=== PATIENT | female | born 1980 | race Caucasian/White ===

== ENCOUNTER 2018-07-25 14:36 | Day surgery (SDC) | payer OTHER ==
[~2018-07-25] VITALS: Ht 162.6 cm; Wt 61.2 kg
[~2018-07-25 14:36] MED LIST: BUPR-42 PO; BUTA1CAP40 PO; CYCL10TA9 PO; TOPI200T8 PO
--- OUTSIDE RECORDS SUMMARY | 2018-07-25 14:42 | XMS REPORT ---
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 Active 939799790 Problem Irregular menses N92.6 Active 332585089 Problem Smoking F17.200 Active 73671507 Problem Migraines G43.909 Active 59114169 Problem Tobacco abuse counseling Z71.6 Active 851752208 Problem Recurrent major depressive disorder, in full remission F33.42 Active 43270701 ALLERGIES Substance Reaction Event Type Date Status Penicillin V Potassium Unknown Drug Allergy Apr, Active Maxalt anaphylaxis Drug Allergy Apr, Active Cipro stomach upset Drug Allergy Apr, Active ENCOUNTERS Encounter Location Date Diagnosis [place] [id number] [place] [address] 64922- 5194 Apr, Lower abdominal pain R10.30 ; Irregular menses N92.6 ; Vaginal odor N89.8 ; Hx of ovarian cyst Z87.42 and Sleep disorder, shift work G47.26 [facility] [address] [place] [address] 70194- 3189 Apr, Lower abdominal pain R10.30 ; Vaginal odor N89.8 ; Sleep disorder, shift work G47.26 ; Irregular menses N92.6 and Hx of ovarian cyst Z87.42 [facility] [address] [place] [address] 16270- 0830 Jan, [facility] [address] [address] 4163 Jan, Irregular menses N92.6 [place] [address] [place] [id number] [place] [address] 59076- 3159 Dec, [place] [address] [place] [id number] [place] [address] 10109- 0510 Dec, Anxiety disorder, unspecified F41.9 [place] [address] [place] [id number] [place] [address] 45981- 1234 Oct, Well woman exam with routine gynecological exam Z01.419 [place] [address] [place] [id number] [place] [address] 24888- 0160 Oct, [place] [address] [place] [id number] [place] [address] 14499- 7733 September, [place] [address] [place] [id number] [place] [address] 09668- 9207 September, Encounter for test, result unknown Z32.00 [place] [address] [place] [id number] [place] [address] 55291- 7536 September, [place] [address] [place] [id number] [place] [address] 84827- 0181 September, [address] [id number] [id number] September, Dental examination Z01.20 [place] [address] [place] [id number] [place] [address] 48204- 2519 September, Well woman exam with routine gynecological exam Z01.419 ; Irregular menses N92.6 and Migraines G43.909 [place] [address] [place] [address] 53931- 4619 Aug, Raynauds disease I73.00 ; Migraines G43.909 ; Recurrent major depressive disorder, in full remission F33.42 ; Anxiety disorder, unspecified F41.9 and Tobacco abuse counseling Z71.6 [place] [address] [place] [id number] [place] [address] 61269- 1763 Jul, [place] [address] 69623- 1630 Jul, Recurrent major depressive disorder, in full remission F33.42 and Migraines G43.909 [place] [address] 09298- 3761 Jul, Migraines G43.909 ; Raynauds disease I73.00 ; Mitral valve prolapse I34.1 ; High risk medication use Z79.899 ; Controlled substance agreement signed Z79.899 ; Recurrent major depressive disorder, in full remission F33.42 and Smoking F17.200 [place] [address] 13403- 1307 Jun, Chronic tension-type headache, intractable G44.221 [place] [address] 40261- 2501 Jan, Chronic tension-type headache, intractable G44.221 [place] [address] 52537- 0035 Jan, Chronic tension-type headache, intractable G44.221 [place] [address] 99059- 9677 Oct, Bronchitis J40 [place] [address] 40417- 2388 September, Encounter for IUD removal Z30.432 and control counseling Z30.09 [place] [address] 86132- 4863 September, [place] [address] 43281- 6710 Aug, Chronic tension-type headache, intractable G44.221 [place] [address] 00895- 4953 Aug, Chronic tension-type headache, intractable G44.221 ; Migraines G43.909 and Anxiety disorder, unspecified F41.9 [place] [address] 44810- 3337 Aug, Anxiety disorder, unspecified F41.9 and Migraines G43.909 [place] [address] 83023- 9322 Jul, Bronchitis J40 [place] [address] 82009- 7937 Jul, Migraines G43.909 ; Anxiety disorder, unspecified F41.9 and Chronic tension-type headache, intractable G44.221 [place] [address] 28926- 9407 13 Jun, 2016 Hx of migraines Z86.69 [place] [address] 33264- 6830 Apr, Diarrhea, unspecified type R19.7 and Other fatigue R53.83 [place] [address] 97877- 8625 Mar, [place] [address] 50392- 4903 Feb, Hx of migraines Z86.69 ; Mitral valve prolapse I34.1 and Anxiety disorder, unspecified F41.9 [place] [address] 03122- 3455 Jan, Vaginal discharge N89.8 ; Vaginal bleeding N93.9 and IUD ( intrauterine device) in place Z97.5 [place] [address] 95307- 9693 Dec, [place] [address] 76466- 3422 Nov, [place] [address] 28187- 7387 Nov, Yeast infection B37.9 [facility] [address] [place] [address] 19449- 5315 Nov, Yeast infection B37.9 [facility] [address] [place] [id number] [place] [address] 88342 -4934 Nov, Left wrist pain M25.532 [facility] [address] [place] [id number] [place] [address] 69407- 6528 Nov, [facility] [address] [place] [id number] [place] [address] 22334- 6124 Oct, Hx of migraines Z86.69 [place] [address] 31389- 3628 Oct, Migraines G43.909 [place] [address] [place] [id number] [place] [address] 23188- 0343 September, [place] [address] 46710- 8979 September, Migraines G43.909 [place] [address] [place] [id number] [place] [address] 32951- 3352 Aug, Hx of migraines Z86.69 ; Anxiety disorder, unspecified F41.9 ; Migraines G43.909 ; Back pain M54.9 ; Smoking F17.200 and Constipation K59.00 [facility] [address] [place] [id number] [place] [address] 81211- 6510 Jul, [facility] [address] [place] [id number] [place] [address] 70799- 9042 Jul, Anxiety disorder, unspecified F41.9 and Depression, unspecified depression type F32.9 [place] [address] [place] [id number] [place] [address] 87513- 3547 Apr, [facility] [address] [place] [id number] [place] [address] 16667- 9404 Apr, Leg pain M79.606 ; Hx of migraines Z86.69 ; Anxiety disorder , unspecified F41.9 and Migraines G43.909 [place] [address] [place] [id number] [place] [address] 97588- 9557 Mar, Migraines G43.909 [place] [address] [place] [id number] [place] [address] 94071- 0995 Mar, [place] [address] 75099- 2796 Mar, General medical exam Z00.00 [place] [address] [place] [id number] [place] [address] 20414- 1232 Mar, [place] [address] 79719- 5733 Mar, General medical exam Z00.00 ; Hx of migraines Z86.69 ; Raynauds disease I73.00 ; Mitral valve prolapse I34.1 ; Anxiety disorder, unspecified F41.9 ; Dietary counseling Z71.3 and Exercise counseling Z71.89 [place] [address] [place] [id number] [place] [address] 99822- 6108 May, [place] [address] 76703- 0467 May, [place] [address] [place] [id number] [place] [address] 30026- 9676 May, [place] [address] [place] [id number] [place] [address] 99142- 4194 May, IMMUNIZATIONS No Known Immunizations SOCIAL HISTORY Never Assessed REASON FOR VISIT Fertility Questions/ pt c/o low RT side pain for 2 days. she states it stopped yesterday though. Pt also c/o headache, irregular periods. She also c/o odor from vagina x2 days- HARISH Cavazos PLAN OF CARE Activity Details Follow Up prn Reason: Pending Test TSH w/ FREE T4 Pending Test ESTRADIOL Pending Test FSH, SERUM Pending Test LH VITAL SIGNS Height 63 in 2018-04-20 Weight 128.1 lbs 2018-04-20 Temperature 96.9 degrees Fahrenheit 2018-04-20 Heart Rate 85 bpm 2018-04-20 Respiratory Rate 18 2018-04-20 BMI 22.69 kg/m2 2018-04-20 Blood pressure systolic 100 mmHg 2018-04-20 Blood pressure diastolic 60 mmHg 2018-04-20 MEDICATIONS Medication Instructions Dosage Frequency Start Date End Date Duration Status Metronidazole 500 mg Orally 2 times a day 1 tablet 12h Apr, 10 day(s) Active Vol-Care Rx 1 Orally Once a day 1 tablet 24h September, Active RESULTS Name Result Date Reference Range UA LONG DIP (IN HOUSE) 2018-04-20 Lot # [id number] Exp date 02/12/2019 Clarity slightly cloudy Color yellow Odor no GLU neg TRESSA neg KET neg SG 1.015 BLO neg pH 8.5 Protein neg URO 0.2 NIT neg WISAM neg Lot # Exp date BACTERIAL VAGINOSIS (IN HOUSE) 2018-04-20 RESULTS POSITIVE Control + Lot # [id number] Exp date 11/2018 PROCEDURES Procedure Date Ordered Result Body Site Bacterial Vaginosis In House Apr 20, 2018 URINALYSIS, AUTO, W/O SCOPE Apr 20, 2018 ASSAY OF FREE THYROXINE Apr 20, 2018 GONADOTROPIN (FSH) Apr 20, 2018 ASSAY OF ESTRADIOL Apr 20, 2018 ASSAY THYROID STIM HORMONE Apr 20, 2018 GONADOTROPIN (LH) Apr 20, 2018 INSTRUCTIONS MEDICATIONS ADMINISTERED No Known Medications MEDICAL (GENERAL) HISTORY Type Description Date Medical History migraine headaches Medical History sleep apnea Medical History arachnoid cyst Medical History mitral valve prolapse Medical History raynauds syndrome diagnosed 2009 Medical History anxiety and depression Surgical History section x 2 Surgical History angiogram Hospitalization History Softball hit to the throat
--- OUTSIDE RECORDS SUMMARY | 2018-07-25 14:43 | XMS REPORT ---
Author Author AYAN RIVER [facility] Address [address] [place] [address] Care Team Providers Care Architectural Project Captain Name Role Phone AYAN RIVER Unavailable PROBLEMS Type Condition ICD9-CM Code HBT17-UP Code Onset Dates Condition Status SNOMED Code Problem Mitral valve prolapse I34.1 Active 789574890 Problem Anxiety disorder, unspecified F41.9 Active 931812978 Problem Irregular menses N92.6 Active 704532252 Problem Tobacco abuse counseling Z71.6 Active 656756903 Problem Migraines G43.909 Active 32642296 Problem Raynauds disease I73.00 Active 244499297 Problem Recurrent major depressive disorder, in full remission F33.42 Active 15213793 Problem Smoking F17.200 Active 69976027 ALLERGIES No Information ENCOUNTERS Encounter Location Date Diagnosis [place] [id number] 89711- 7329 Jan, [place] [address] 87876- 8495 Jan, Irregular menses N92.6 [place] [address] [place] [id number] [place] [address] 04820- 8681 Dec, [facility] [address] 66211- 7068 Dec, Anxiety disorder, unspecified F41.9 [facility] [address] 95961- 7514 Oct, Well woman exam with routine gynecological exam Z01.419 [place] [address] [place] [id number] [place] [address] 19926- 0496 Oct, [place] [address] 90224- 1570 September, [place] [address] [place] [address] 75466- 3358 September, Encounter for test, result unknown Z32.00 [place] [address] [place] [id number] [place] [address] 87684- 8698 September, [place] [address] [place] [id number] [place] [address] 05198- 2444 September, [address] [id number] [id number] September, Dental examination Z01.20 [place] [address] [place] [id number] [place] [address] 54445- 4432 10 Sep, 2017 Well woman exam with routine gynecological exam Z01.419 ; Irregular menses N92.6 and Migraines G43.909 [place] [address] [place] [id number] [place] [address] 03897- 7710 17 Aug, 2017 Raynauds disease I73.00 ; Migraines G43.909 ; Recurrent major depressive disorder, in full remission F33.42 ; Anxiety disorder, unspecified F41.9 and Tobacco abuse counseling Z71.6 [place] [address] [place] [id number] [place] [address] 54020- 7360 Jul, [place] [address] [place] [id number] [place] [address] 04686- 1926 Jul, Recurrent major depressive disorder, in full remission F33.42 and Migraines G43.909 [place] [address] [place] [id number] [place] [address] 91215- 5913 Jul, Migraines G43.909 ; Raynauds disease I73.00 ; Mitral valve prolapse I34.1 ; High risk medication use Z79.899 ; Controlled substance agreement signed Z79.899 ; Recurrent major depressive disorder, in full remission F33.42 and Smoking F17.200 [place] [address] [place] [id number] [place] [address] 60197- 3652 Jun, Chronic tension-type headache, intractable G44.221 [place] [address] [place] [id number] [place] [address] 90553- 5427 Jan, Chronic tension-type headache, intractable G44.221 [place] [address] [place] [id number] [place] [address] 01014- 5118 Jan, Chronic tension-type headache, intractable G44.221 [place] [address] 33086- 4800 Oct, Bronchitis J40 [place] [address] 70401- 8082 September, Encounter for IUD removal Z30.432 and control counseling Z30.09 [place] [address] 08081- 2318 September, [place] [address] 83995- 6645 Aug, Chronic tension-type headache, intractable G44.221 [place] [address] [place] [id number] [place] [address] 48616- 6677 Aug, Chronic tension-type headache, intractable G44.221 ; Migraines G43.909 and Anxiety disorder, unspecified F41.9 [place] [address] [place] [id number] [place] [address] 14782- 8062 Aug, Anxiety disorder, unspecified F41.9 and Migraines G43.909 [place] [address] [place] [id number] [place] [address] 50620- 6667 Jul, Bronchitis J40 [place] [address] 57059- 4958 Jul, Migraines G43.909 ; Anxiety disorder, unspecified F41.9 and Chronic tension-type headache, intractable G44.221 [place] [address] 57567- 2196 Jun, Hx of migraines Z86.69 [facility] [address] [place] [id number] [place] [address] 98786- 0367 15 Apr, 2016 Diarrhea, unspecified type R19.7 and Other fatigue R53.83 [facility] [address] [place] [id number] [place] [address] 08834- 7592 09 Mar, 2016 [place] [address] 12133- 8119 07 Feb, 2016 Hx of migraines Z86.69 ; Mitral valve prolapse I34.1 and Anxiety disorder, unspecified F41.9 [place] [address] 11298- 8976 08 Jan, 2016 Vaginal discharge N89.8 ; Vaginal bleeding N93.9 and IUD ( intrauterine device) in place Z97.5 [place] [address] 16115- 5756 Dec, [facility] [address] 21525- 7628 Nov, [facility] [address] 54120- 8651 Nov, Yeast infection B37.9 [facility] [address] [place] [id number] [place] [address] 18852- 9190 Nov, Yeast infection B37.9 [facility] [address] [place] [id number] [place] [address] 93838 -3226 Nov, Left wrist pain M25.532 [facility] [address] 65269- 1894 Nov, [facility] [address] 77178- 1663 Oct, Hx of migraines Z86.69 [facility] [address] [place] [id number] [place] [address] 67469- 3369 Oct, Migraines G43.909 [place] [address] [place] [id number] [place] [address] 78759- 6965 September, [place] [address] 49810- 4169 September, Migraines G43.909 [place] [address] 62300- 6046 Aug, Hx of migraines Z86.69 ; Anxiety disorder, unspecified F41.9 ; Migraines G43.909 ; Back pain M54.9 ; Smoking F17.200 and Constipation K59.00 [place] [address] 53845- 6400 Jul, [place] [address] 32535- 8695 Jul, Anxiety disorder, unspecified F41.9 and Depression, unspecified depression type F32.9 [place] [address] 38237- 7129 Apr, [place] [address] 26120- 8798 Apr, Leg pain M79.606 ; Hx of migraines Z86.69 ; Anxiety disorder , unspecified F41.9 and Migraines G43.909 [place] [address] [place] [id number] [place] [address] 22336- 4874 Mar, Migraines G43.909 [place] [address] [place] [id number] [place] [address] 44016- 2807 Mar, [place] [address] 98637- 7834 Mar, General medical exam Z00.00 [place] [address] 23748- 5014 Mar, [place] [address] 86325- 5065 Mar, General medical exam Z00.00 ; Hx of migraines Z86.69 ; Raynauds disease I73.00 ; Mitral valve prolapse I34.1 ; Anxiety disorder, unspecified F41.9 ; Dietary counseling Z71.3 and Exercise counseling Z71.89 [facility] [address] [address]- 6215 May, [facility] [address] [address]- 1226 May, [facility] [address] [address]- 7728 May, [facility] [address], [place] [address]- 3739 May, IMMUNIZATIONS No Known Immunizations SOCIAL HISTORY Never Assessed REASON FOR VISIT Lab results PLAN OF CARE VITAL SIGNS MEDICATIONS Unknown Medications RESULTS No Results PROCEDURES No Known procedures INSTRUCTIONS MEDICATIONS ADMINISTERED No Known Medications MEDICAL (GENERAL) HISTORY Type Description Date Medical History migraine headaches Medical History sleep apnea Medical History arachnoid cyst Medical History mitral valve prolapse Medical History raynauds syndrome diagnosed 2009 Medical History anxiety and depression Surgical History section x 2 Surgical History angiogram Hospitalization History Softball hit to the throat
--- OUTSIDE RECORDS SUMMARY | 2018-07-25 14:43 | XMS REPORT ---
Author Author JENNIFERKENNEDYLD Organization [facility] Address [address] [place] [address] Care Team Providers Care Network Planner Name Role Phone RODRIGUEZLD Song Unavailable PROBLEMS Type Condition ICD9-CM Code BXZ15-ZV Code Onset Dates Condition Status SNOMED Code Problem Mitral valve prolapse I34.1 Active 741736257 Problem Anxiety disorder, unspecified F41.9 Active 486142434 Problem Irregular menses N92.6 Active 900111711 Problem Tobacco abuse counseling Z71.6 Active 411559814 Problem Migraines G43.909 Active 02064282 Problem Raynauds disease I73.00 Active 858976806 Problem Recurrent major depressive disorder, in full remission F33.42 Active 43564974 Problem Smoking F17.200 Active 15423844 ALLERGIES No Information ENCOUNTERS Encounter Location Date Diagnosis [facility] [address] [address] Dec, Anxiety disorder, unspecified F41.9 [facility] [id number] [place] [address] 37907- 8245 Oct, Well woman exam with routine gynecological exam Z01.419 [facility] [id number] [place] [address] 69984- 1868 Oct, [facility] [id number] [place] [address] 07410- 7605 September, [facility] [address] [address]- [address] September, Encounter for test, result unknown Z32.00 [facility] [id number] [place] [address] 57541- 7442 September, [facility] [address] 8[address]- [address] September, [facility] [address] [place] [address] AVE [id number] [id number] September, Dental examination Z01.20 [place] [id number] [place] [address] 53059- 8334 10 Sep, 2017 Well woman exam with routine gynecological exam Z01.419 ; Irregular menses N92.6 and Migraines G43.909 [place] [id number] [place] [address] 83956- 4834 Aug, Raynauds disease I73.00 ; Migraines G43.909 ; Recurrent major depressive disorder, in full remission F33.42 ; Anxiety disorder, unspecified F41.9 and Tobacco abuse counseling Z71.6 [place] [id number] [place] [address] 66777- 1657 Jul, [place] [id number] [place] [address] 48432- 4147 Jul, Recurrent major depressive disorder, in full remission F33.42 and Migraines G43.909 [place] [id number] [place] [address] 88104- 4239 Jul, Migraines G43.909 ; Raynauds disease I73.00 ; Mitral valve prolapse I34.1 ; High risk medication use Z79.899 ; Controlled substance agreement signed Z79.899 ; Recurrent major depressive disorder, in full remission F33.42 and Smoking F17.200 [place] [address] [place] [address] 58887- 1942 Jun, Chronic tension-type headache, intractable G44.221 [place] [id number] [place] [address] 43615- 1050 Jan, Chronic tension-type headache, intractable G44.221 [place] [id number] [place] [address] 84561- 5748 Jan, Chronic tension-type headache, intractable G44.221 [place] [address] 43035- 8549 Oct, Bronchitis J40 [place] [address] 96929- 4298 15 Sep, 2016 Encounter for IUD removal Z30.432 and control counseling Z30.09 [place] [address] 04695- 8704 September, [place] [address] 83260- 5786 Aug, Chronic tension-type headache, intractable G44.221 [place] [address] 07862- 4218 Aug, Chronic tension-type headache, intractable G44.221 ; Migraines G43.909 and Anxiety disorder, unspecified F41.9 [place] [address] 71290- 2605 Aug, Anxiety disorder, unspecified F41.9 and Migraines G43.909 [place] [address] 56148- 6413 Jul, Bronchitis J40 [place] [address] 52386- 7780 Jul, Migraines G43.909 ; Anxiety disorder, unspecified F41.9 and Chronic tension-type headache, intractable G44.221 [place] [address] 26071- 4625 13 Jun, 2016 Hx of migraines Z86.69 [place] [address] 04565- 1918 Apr, Diarrhea, unspecified type R19.7 and Other fatigue R53.83 [place] [address] 10281- 5852 Mar, [place] [address] [place] [address] 7166 07 Feb, 2016 Hx of migraines Z86.69 ; Mitral valve prolapse I34.1 and Anxiety disorder, unspecified F41.9 [facility] [id number] [place] [address] 45104- 5105 08 Jan, 2016 Vaginal discharge N89.8 ; Vaginal bleeding N93.9 and IUD ( intrauterine device) in place Z97.5 [place] [address] 32276- 5645 Dec, [facility] [address] 94134- 9209 Nov, [facility] [address] 04098- 9452 Nov, Yeast infection B37.9 [place] [address] 58644- 9155 Nov, Yeast infection B37.9 [facility] [id number] [place] [address] 55799 -2081 Nov, Left wrist pain M25.532 [place] [address] 20207- 9987 Nov, [facility] [address] 04950- 1876 Oct, Hx of migraines Z86.69 [place] [address] 67304- 5192 Oct, Migraines G43.909 [place] [address] 32541- 9349 September, [place] [address] 82472- 4626 September, Migraines G43.909 [facility] [id number] [place] [address] 69835- 1387 Aug, Hx of migraines Z86.69 ; Anxiety disorder, unspecified F41.9 ; Migraines G43.909 ; Back pain M54.9 ; Smoking F17.200 and Constipation K59.00 [place] [address] 43235- 0901 Jul, [place] [address] 07288- 3382 Jul, Anxiety disorder, unspecified F41.9 and Depression, unspecified depression type F32.9 [place] [address] 47360- 5108 Apr, [place] [address] 50080- 4057 Apr, Leg pain M79.606 ; Hx of migraines Z86.69 ; Anxiety disorder , unspecified F41.9 and Migraines G43.909 [place] [address] 94607- 4200 Mar, Migraines G43.909 [place] [address] 40849- 3214 Mar, [place] [address] 47676- 6002 Mar, General medical exam Z00.00 [place] [address] 96999- 4298 Mar, [place] [address] 61737- 3629 Mar, General medical exam Z00.00 ; Hx of migraines Z86.69 ; Raynauds disease I73.00 ; Mitral valve prolapse I34.1 ; Anxiety disorder, unspecified F41.9 ; Dietary counseling Z71.3 and Exercise counseling Z71.89 [place] [address] 04349- 7083 May, [place] [address] [place] [address]- 6439 May, [facility] [address] [facility] [id number] [place] [address] 457[address] May, [facility] [address] [facility] [id number] [place] [address]- [address]75 May, IMMUNIZATIONS No Known Immunizations SOCIAL HISTORY Never Assessed REASON FOR VISIT Lab results PLAN OF CARE VITAL SIGNS MEDICATIONS No Known Medications RESULTS No Results PROCEDURES No Known [...]
--- OUTSIDE RECORDS SUMMARY | 2018-07-25 14:43 | XMS REPORT ---
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 Active 373932504 Problem Irregular menses N92.6 Active 625010420 Problem Smoking F17.200 Active 26239632 Problem Migraines G43.909 Active 62085669 Problem Tobacco abuse counseling Z71.6 Active 996999032 Problem Recurrent major depressive disorder, in full remission F33.42 Active 58046627 ALLERGIES No Information ENCOUNTERS Encounter Location Date Diagnosis [place] [address] [address]- [address] Apr, Lower abdominal pain R10.30 ; Irregular menses N92.6 ; Vaginal odor N89.8 ; Hx of ovarian cyst Z87.42 and Sleep disorder, shift 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 [place] [id number] [place] [address] 19028- 7615 Apr, Lower abdominal pain R10.30 ; Vaginal odor N89.8 ; Sleep disorder, shift work G47.26 ; Irregular menses N92.6 and Hx of ovarian cyst Z87.42 [place] [address] 68602- 7135 Jan, [place] [address] [id number] [place] [address] 09534- 3746 Jan, Irregular menses N92.6 [place] [address] [address]- 7794 Dec, [place] [id number] [place] [address] 08880- 9283 Dec, Anxiety disorder, unspecified F41.9 [place] [address], [place] [address]- 2855 Oct, Well woman exam with routine gynecological exam Z01.419 [place] [address] [place] [address] 62928- 4335 Oct, [place] [id number] [place] [address] 83471- 7234 September, [place] [address] [address] [id number] [place] [address] 07955- 0921 September, Encounter for test, result unknown Z32.00 [place] [id number] [place] [address] 91216- 0724 September, [place] [address] [place] [address] 69892- 0113 September, [address] [id number] [id number] September, Dental examination Z01.20 [place] [address] [place] [address] 22134- 3614 September, Well woman exam with routine gynecological exam Z01.419 ; Irregular menses N92.6 and Migraines G43.909 [place] [address] [place] [address] 75095- 6576 Aug, Raynauds disease I73.00 ; Migraines G43.909 ; Recurrent major depressive disorder, in full remission F33.42 ; Anxiety disorder, unspecified F41.9 and Tobacco abuse counseling Z71.6 [place] [address] [address]- 7040 Jul, [place] [address] [place] [address] [id number] [place] [address] 07186- 4844 Jul, Recurrent major depressive disorder, in full remission F33.42 and Migraines G43.909 [place] [address] 28018- 0157 Jul, Migraines G43.909 ; Raynauds disease I73.00 ; Mitral valve prolapse I34.1 ; High risk medication use Z79.899 ; Controlled substance agreement signed Z79.899 ; Recurrent major depressive disorder, in full remission F33.42 and Smoking F17.200 [place] [address] 75567- 0078 Jun, Chronic tension-type headache, intractable G44.221 [place] [address] 46976- 3739 Jan, Chronic tension-type headache, intractable G44.221 [place] [address] 66938- 9662 Jan, Chronic tension-type headache, intractable G44.221 [place] [address] 16729- 8821 Oct, Bronchitis J40 [place] [address] 98480- 5600 15 Sep, 2016 Encounter for IUD removal Z30.432 and control counseling Z30.09 [place] [address] 04008- 9583 September, [address] 34306- 6296 Aug, Chronic tension-type headache, intractable G44.221 [place] [address] 25153- 6463 Aug, Chronic tension-type headache, intractable G44.221 ; Migraines G43.909 and Anxiety disorder, unspecified F41.9 [place] [address] [place] [address]- 7444 Aug, Anxiety disorder, unspecified F41.9 and Migraines G43.909 [place] [address] 21135- 6903 Jul, Bronchitis J40 [place] [address] 57752- 0485 Jul, Migraines G43.909 ; Anxiety disorder, unspecified F41.9 and Chronic tension-type headache, intractable G44.221 [place] [address] 77150- 9156 13 Jun, 2016 Hx of migraines Z86.69 [place] [address] 95956- 1810 15 Apr, 2016 Diarrhea, unspecified type R19.7 and Other fatigue R53.83 [place] [address] 79709- 7190 Mar, [place] [address] 23795- 9681 07 Feb, 2016 Hx of migraines Z86.69 ; Mitral valve prolapse I34.1 and Anxiety disorder, unspecified F41.9 [place] [address] 94929- 4677 08 Jan, 2016 Vaginal discharge N89.8 ; Vaginal bleeding N93.9 and IUD ( intrauterine device) in place Z97.5 [place] [id number] [place] [address] 84866- 8342 Dec, [place] [address] 73771- 3168 Nov, [place] [address] 07488- 4644 Nov, Yeast infection B37.9 [place] [address] 48906- 6605 Nov, Yeast infection B37.9 [facility] [address] [place] [address] 46094 -6469 Nov, Left wrist pain M25.532 [facility] [id number] [place] [address] 08307- 8934 Nov, [facility] [id number] [place] [address] 41067- 3922 Oct, Hx of migraines Z86.69 [place] [id number] [place] [address] 59880- 7199 Oct, Migraines G43.909 [place] [id number] [place] [address] 59200- 2481 September, [place] [id number] [place] [address] 92515- 7111 September, Migraines G43.909 [place] [address] [id number] [place] [address] 30450- 8938 Aug, Hx of migraines Z86.69 ; Anxiety disorder, unspecified F41.9 ; Migraines G43.909 ; Back pain M54.9 ; Smoking F17.200 and Constipation K59.00 [place] [address] [place] [address] 89797- 6876 Jul, [place] [address] [id number] [place] [address] 81602- 7764 Jul, Anxiety disorder, unspecified F41.9 and Depression, unspecified depression type F32.9 [place] [id number] [place] [address] 09504- 7665 Apr, [place] [address] 89629- 1348 Apr, Leg pain M79.606 ; Hx of migraines Z86.69 ; Anxiety disorder , unspecified F41.9 and Migraines G43.909 [place] [id number] [address]- 7206 Mar, Migraines G43.909 [place] [id number] [place] [address] 64665- 7241 Mar, [place] [id number] [place] [address] 86667- 7754 Mar, General medical exam Z00.00 [place] [address] [id number] [place] [address] 05547- 6513 Mar, [place] [id number] [place] [address] 71982- 8496 Mar, General medical exam Z00.00 ; Hx of migraines Z86.69 ; Raynauds disease I73.00 ; Mitral valve prolapse I34.1 ; Anxiety disorder, unspecified F41.9 ; Dietary counseling Z71.3 and Exercise counseling Z71.89 [place] [id number] [place] [address] 51448- 5161 May, [place] [id number] [place] [address] 97179- 5345 May, [place] [id number] [place] [address] 09626- 1278 May, [place] [address] [id number] [place] [address] 16919- 8840 May, IMMUNIZATIONS No Known Immunizations SOCIAL HISTORY Never Assessed REASON FOR VISIT U/S pelvic complete ULTRASOUND WALK-IN. [facility] RVT PLAN OF CARE Activity Details Pending Test Ultrasound : PELVIC COMPLETE (IN-HOUSE) VITAL SIGNS MEDICATIONS Unknown Medications RESULTS No Results PROCEDURES Procedure Date Ordered Result Body Site US EXAM, PELVIC, COMPLETE Apr 24, 2018 INSTRUCTIONS MEDICATIONS ADMINISTERED No Known Medications MEDICAL (GENERAL) HISTORY Type Description Date Medical History migraine headaches Medical History sleep apnea Medical History arachnoid cyst Medical History mitral valve prolapse Medical History raynauds syndrome diagnosed 2009 Medical History anxiety and depression Surgical History section x 2 Surgical History angiogram Hospitalization History Softball hit to the throat
--- OUTSIDE RECORDS SUMMARY | 2018-07-25 14:43 | XMS REPORT ---
Author Author AYAN RIVER [facility] Address [address] [place] [address] Care Team Providers Care Transit Department Clerk Name Role Phone AYAN RIVER Unavailable PROBLEMS Type Condition ICD9-CM Code SZF28-BO Code Onset Dates Condition Status SNOMED Code Problem Mitral valve prolapse I34.1 Active 979325305 Problem Anxiety disorder, unspecified F41.9 Active 441629976 Problem Irregular menses N92.6 Active 555204988 Problem Tobacco abuse counseling Z71.6 Active 149620070 Problem Migraines G43.909 Active 07246619 Problem Raynauds disease I73.00 Active 471702376 Problem Recurrent major depressive disorder, in full remission F33.42 Active 32249908 Problem Smoking F17.200 Active 66124857 ALLERGIES Substance Reaction Event Type Date Status Penicillin V Potassium Unknown Drug Allergy Jan, Active Maxalt anaphylaxis Drug Allergy Jan, Active Cipro stomach upset Drug Allergy Jan, Active ENCOUNTERS Encounter Location Date Diagnosis [place] [id number] [place] [address] 13602- 0045 Jan, [facility] [id number] [place] [address] 05506- 9283 Jan, Irregular menses N92.6 [facility] [id number] [place] [address] 08852- 5300 Dec, [facility] [id number] [place] [address] 87943- 6378 Dec, Anxiety disorder, unspecified F41.9 [facility] [address] [place] [address] 49503- 3838 Oct, Well woman exam with routine gynecological exam Z01.419 [place] [address] [id number] [address] Oct, [place] [address] [place] [address] 77763- 1275 September, [place] [address] [place] [address] 61016- 2906 September, Encounter for test, result unknown Z32.00 [place] [address] [place] [id number] [place] [address] 41154- 1814 September, [place] [address] [place] [address] 02781- 4689 September, [address] [id number] [id number] September, Dental examination Z01.20 [place] [address] [place] [address] 51988- 8040 September, Well woman exam with routine gynecological exam Z01.419 ; Irregular menses N92.6 and Migraines G43.909 [place] [address] [place] [address] 39131- 8798 Aug, Raynauds disease I73.00 ; Migraines G43.909 ; Recurrent major depressive disorder, in full remission F33.42 ; Anxiety disorder, unspecified F41.9 and Tobacco abuse counseling Z71.6 [place] [address] [place] [address] 95104- 4058 Jul, [place] [address] [place] [address] 88392- 2460 Jul, Recurrent major depressive disorder, in full remission F33.42 and Migraines G43.909 [place] [address] [place] [address] 51041- 6665 Jul, Migraines G43.909 ; Raynauds disease I73.00 ; Mitral valve prolapse I34.1 ; High risk medication use Z79.899 ; Controlled substance agreement signed Z79.899 ; Recurrent major depressive disorder, in full remission F33.42 and Smoking F17.200 [place] [address] [place] [id number] [place] [address] 13839- 4176 Jun, Chronic tension-type headache, intractable G44.221 [place] [address] [place] [id number] [place] [address] 38807- 1926 Jan, Chronic tension-type headache, intractable G44.221 [place] [address] 95224- 1572 Jan, Chronic tension-type headache, intractable G44.221 [place] [address] 280579- 8171 Oct, Bronchitis J40 [place] [address] 06300- 259 September, Encounter for IUD removal Z30.432 and control counseling Z30.09 [place] [address] 44319- 4123 September, [place] [address] [place] [id number] [place] [address] 65428- 4449 Aug, Chronic tension-type headache, intractable G44.221 [place] [address] [place] [id number] [place] [address] 18424- 0294 Aug, Chronic tension-type headache, intractable G44.221 ; Migraines G43.909 and Anxiety disorder, unspecified F41.9 [place] [address] [place] [id number] [place] [address] 49945- 4333 Aug, Anxiety disorder, unspecified F41.9 and Migraines G43.909 [place] [address] 86694- 0354 Jul, Bronchitis J40 [place] [address] [id number] [place] [address] 14602- 0355 Jul, Migraines G43.909 ; Anxiety disorder, unspecified F41.9 and Chronic tension-type headache, intractable G44.221 [facility] [address] [id number] [place] [address] 86131- 0747 13 Jun, 2016 Hx of migraines Z86.69 [facility] [address] 35935- 8995 15 Apr, 2016 Diarrhea, unspecified type R19.7 and Other fatigue R53.83 [place] [address] 20166- 9238 09 Mar, 2016 [place] [address] 15402- 3964 07 Feb, 2016 Hx of migraines Z86.69 ; Mitral valve prolapse I34.1 and Anxiety disorder, unspecified F41.9 [place] [address] 65483- 4805 08 Jan, 2016 Vaginal discharge N89.8 ; Vaginal bleeding N93.9 and IUD ( intrauterine device) in place Z97.5 [place] [address] 02022- 6971 Dec, [place] [address] 07135- 0104 Nov, [facility] [address] 84559- 6689 Nov, Yeast infection B37.9 [facility] [address] 85279- 7591 Nov, Yeast infection B37.9 [facility] [id number] [place] [address] 95419 -8112 Nov, Left wrist pain M25.532 [facility] [address] 71380- 1309 Nov, [facility] [address] [address] [id number] [place] [address] 80302- 1821 Oct, Hx of migraines Z86.69 [place] [address] [place] [id number] [place] [address] 73296- 9976 Oct, Migraines G43.909 [place] [address] 62394- 0869 September, [place] [address] 28155- 9937 September, Migraines G43.909 [place] [address] 87722- 3490 Aug, Hx of migraines Z86.69 ; Anxiety disorder, unspecified F41.9 ; Migraines G43.909 ; Back pain M54.9 ; Smoking F17.200 and Constipation K59.00 [place] [address] 74842- 1185 Jul, [place] [address] 26388- 6632 Jul, Anxiety disorder, unspecified F41.9 and Depression, unspecified depression type F32.9 [place] [address] 45159- 4535 Apr, [place] [address] [place] [id number] [place] [address] 68683- 0403 Apr, Leg pain M79.606 ; Hx of migraines Z86.69 ; Anxiety disorder , unspecified F41.9 and Migraines G43.909 [place] [address] [place] [id number] [place] [address] 90861- 5944 Mar, Migraines G43.909 [place] [address] 36281- 3496 Mar, [place] [address] [place] [id number] [place] [address] 99906- 0886 Mar, General medical exam Z00.00 [place] [address] 79969- 5174 Mar, [facility] [address] [place] [id number] [address]- 2546 Mar, General medical exam Z00.00 ; Hx of migraines Z86.69 ; Raynauds disease I73.00 ; Mitral valve prolapse I34.1 ; Anxiety disorder, unspecified F41.9 ; Dietary counseling Z71.3 and Exercise counseling Z71.89 [facility] [address] [address]- 5216 May, [place] [address] [address]- 9376 May, [facility] [address] [place] [address] 14313- 4996 May, [place] [address] [place] [address] 89284- 4616 May, IMMUNIZATIONS No Known Immunizations SOCIAL HISTORY Never Assessed REASON FOR VISIT menstrual concerns- pt states that her periods have been irregular. She states that the last one she had lasted 2 days and then stopped and then she spotted a couple other days. She also c/o breast tenderness. HARISH Cavazos PLAN OF CARE Activity Details Follow Up prn Reason: Pending Test TEST, URINE (IN HOUSE) VITAL SIGNS Height 63 in 2018-01-24 Weight 125.5 lbs 2018-01-24 Temperature 98.5 degrees Fahrenheit 2018-01-24 Heart Rate 93 bpm 2018-01-24 Respiratory Rate 18 2018-01-24 BMI 22.23 kg/m2 2018-01-24 Blood pressure systolic 114 mmHg 2018-01-24 Blood pressure diastolic 66 mmHg 2018-01-24 MEDICATIONS Medication Instructions Dosage Frequency Start Date End Date Duration Status Vol-Care Rx 1 Orally Once a day 1 tablet 24h September, Active RESULTS No Results PROCEDURES Procedure Date Ordered Result Body Site COMPREHEN METABOLIC PANEL Jan 24, 2018 ASSAY THYROID STIM HORMONE Jan 24, 2018 URINE TEST Jan 24, 2018 COMPLETE CBC W/AUTO DIFF WBC Jan 24, 2018 VENIPUNCT, ROUTINE* Jan 24, 2018 INSTRUCTIONS MEDICATIONS ADMINISTERED No Known [...]
--- OUTSIDE RECORDS SUMMARY | 2018-07-25 14:43 | XMS REPORT ---
Author Author AYAN RIVER [facility] Address [address] [place] [address] Care Team Providers Care Call Center Specialist Name Role Phone AYAN RIVER Unavailable PROBLEMS Type Condition ICD9-CM Code APU66-FV Code Onset Dates Condition Status SNOMED Code Problem Mitral valve prolapse I34.1 Active 609067215 Problem Anxiety disorder, unspecified F41.9 Active 605997532 Problem Irregular menses N92.6 Active 093690571 Problem Tobacco abuse counseling Z71.6 Active 172236433 Problem Migraines G43.909 Active 54411654 Problem Raynauds disease I73.00 Active 975391775 Problem Recurrent major depressive disorder, in full remission F33.42 Active 29876811 Problem Smoking F17.200 Active 19653561 ALLERGIES No Information ENCOUNTERS Encounter Location Date Diagnosis [place] [address] 18314- 5605 Jan, [place] [address] 62277- 9554 Jan, Irregular menses N92.6 [place] [address] [place] [id number] [place] [address] 68257- 4840 Dec, [facility] [address] 12562- 9616 Dec, Anxiety disorder, unspecified F41.9 [facility] [address] 18996- 1117 Oct, Well woman exam with routine gynecological exam Z01.419 [place] [address] [place] [id number] [place] [address] 20347- 0443 Oct, [place] [address] 80655- 0343 September, [place] [address] [place] [address] 94115- 7690 September, Encounter for test, result unknown Z32.00 [place] [address] [place] [id number] [place] [address] 98953- 4594 September, [place] [address] [place] [id number] [place] [address] 42895- 7771 September, [address] [id number] [id number] September, Dental examination Z01.20 [place] [address] [place] [id number] [place] [address] 18832- 8707 10 Sep, 2017 Well woman exam with routine gynecological exam Z01.419 ; Irregular menses N92.6 and Migraines G43.909 [place] [address] [place] [id number] [place] [address] 66298- 2191 17 Aug, 2017 Raynauds disease I73.00 ; Migraines G43.909 ; Recurrent major depressive disorder, in full remission F33.42 ; Anxiety disorder, unspecified F41.9 and Tobacco abuse counseling Z71.6 [place] [address] [place] [id number] [place] [address] 60757- 4812 Jul, [place] [address] [place] [id number] [place] [address] 34508- 2645 Jul, Recurrent major depressive disorder, in full remission F33.42 and Migraines G43.909 [place] [address] [place] [id number] [place] [address] 05764- 5563 Jul, Migraines G43.909 ; Raynauds disease I73.00 ; Mitral valve prolapse I34.1 ; High risk medication use Z79.899 ; Controlled substance agreement signed Z79.899 ; Recurrent major depressive disorder, in full remission F33.42 and Smoking F17.200 [place] [address] [place] [id number] [place] [address] 43083- 9023 Jun, Chronic tension-type headache, intractable G44.221 [place] [address] [place] [id number] [place] [address] 04076- 4077 Jan, Chronic tension-type headache, intractable G44.221 [place] [address] [place] [id number] [place] [address] 21360- 8852 Jan, Chronic tension-type headache, intractable G44.221 [place] [address] 24992- 1207 Oct, Bronchitis J40 [place] [address] 40118- 2474 September, Encounter for IUD removal Z30.432 and control counseling Z30.09 [place] [address] 68663- 4663 September, [place] [address] 92255- 7936 Aug, Chronic tension-type headache, intractable G44.221 [place] [address] [place] [id number] [place] [address] 74698- 5159 Aug, Chronic tension-type headache, intractable G44.221 ; Migraines G43.909 and Anxiety disorder, unspecified F41.9 [place] [address] [place] [id number] [place] [address] 36704- 1576 Aug, Anxiety disorder, unspecified F41.9 and Migraines G43.909 [place] [address] [place] [id number] [place] [address] 93355- 2800 Jul, Bronchitis J40 [place] [address] 14117- 3473 Jul, Migraines G43.909 ; Anxiety disorder, unspecified F41.9 and Chronic tension-type headache, intractable G44.221 [place] [address] 49444- 6560 Jun, Hx of migraines Z86.69 [facility] [address] [place] [id number] [place] [address] 11103- 1273 15 Apr, 2016 Diarrhea, unspecified type R19.7 and Other fatigue R53.83 [facility] [address] [place] [id number] [place] [address] 78972- 4515 09 Mar, 2016 [place] [address] 84108- 8389 07 Feb, 2016 Hx of migraines Z86.69 ; Mitral valve prolapse I34.1 and Anxiety disorder, unspecified F41.9 [place] [address] 16569- 4875 08 Jan, 2016 Vaginal discharge N89.8 ; Vaginal bleeding N93.9 and IUD ( intrauterine device) in place Z97.5 [place] [address] 44271- 0845 Dec, [facility] [address] 97735- 1329 Nov, [facility] [address] 34916- 4548 Nov, Yeast infection B37.9 [facility] [address] [place] [id number] [place] [address] 53046- 2673 Nov, Yeast infection B37.9 [facility] [address] [place] [id number] [place] [address] 93303 -6763 Nov, Left wrist pain M25.532 [facility] [address] 56657- 6624 Nov, [facility] [address] 82892- 2876 Oct, Hx of migraines Z86.69 [facility] [address] [place] [id number] [place] [address] 38315- 1105 Oct, Migraines G43.909 [place] [address] [place] [id number] [place] [address] 46493- 4448 September, [place] [address] 20106- 6507 September, Migraines G43.909 [place] [address] 47188- 2033 Aug, Hx of migraines Z86.69 ; Anxiety disorder, unspecified F41.9 ; Migraines G43.909 ; Back pain M54.9 ; Smoking F17.200 and Constipation K59.00 [place] [address] 77642- 1999 Jul, [place] [address] 85557- 5379 Jul, Anxiety disorder, unspecified F41.9 and Depression, unspecified depression type F32.9 [place] [address] 64163- 7008 Apr, [place] [address] 29654- 6823 Apr, Leg pain M79.606 ; Hx of migraines Z86.69 ; Anxiety disorder , unspecified F41.9 and Migraines G43.909 [place] [address] [place] [id number] [place] [address] 33427- 7842 Mar, Migraines G43.909 [place] [address] [place] [id number] [place] [address] 19194- 4483 Mar, [place] [address] 69640- 4703 Mar, General medical exam Z00.00 [place] [address] 85126- 6470 Mar, [place] [address] 29648- 3828 Mar, General medical exam Z00.00 ; Hx of migraines Z86.69 ; Raynauds disease I73.00 ; Mitral valve prolapse I34.1 ; Anxiety disorder, unspecified F41.9 ; Dietary counseling Z71.3 and Exercise counseling Z71.89 [facility] [address] [address]- 1635 May, [facility] [address] [address]- 8197 May, [facility] [address] [address]- 8815 May, [place] [id number] [address]- 5863 May, IMMUNIZATIONS No Known Immunizations SOCIAL HISTORY Never Assessed REASON FOR VISIT Requests return call PLAN OF CARE VITAL SIGNS MEDICATIONS Unknown [...]
--- OUTSIDE RECORDS SUMMARY | 2018-07-25 14:43 | XMS REPORT ---
Author Author AYAN RIVER [facility] Address [address] [place] [address] Care Team Providers Care Ticket Machine Operator Name Role Phone AYAN RIVER Unavailable PROBLEMS Type Condition ICD9-CM Code OUC15-YS Code Onset Dates Condition Status SNOMED Code Problem Mitral valve prolapse I34.1 Active 526843885 Problem Anxiety disorder, unspecified F41.9 Active 752920329 Problem Irregular menses N92.6 Active 781283204 Problem Tobacco abuse counseling Z71.6 Active 158684225 Problem Migraines G43.909 Active 07982580 Problem Raynauds disease I73.00 Active 843472655 Problem Recurrent major depressive disorder, in full remission F33.42 Active 28646089 Problem Smoking F17.200 Active 31911486 ALLERGIES Substance Reaction Event Type Date Status Penicillin V Potassium Unknown Drug Allergy Dec, Active Maxalt anaphylaxis Drug Allergy Dec, Active Cipro stomach upset Drug Allergy Dec, Active ENCOUNTERS Encounter Location Date Diagnosis [place] [id number] [place] [address] 57842- 8966 Jan, Irregular menses N92.6 [facility] [address] [place] [address] 99693- 2417 Dec, [facility] [address] [place] [id number] [place] [address] 46767- 7485 Dec, Anxiety disorder, unspecified F41.9 [facility] [address] [place] [id number] [place] [address] 32050- 2386 Oct, Well woman exam with routine gynecological exam Z01.419 [place] [address] [address] 4[address] Oct, [place] [address] [id number] [address] 3179 September, [place] [address] [place] [id number] [place] [address] 44886- 8905 September, Encounter for test, result unknown Z32.00 [place] [address] [place] [id number] [place] [address] 28512- 9106 September, [place] [address] 91572- 5000 September, [address] [id number] [id number] September, Dental examination Z01.20 [place] [address] 02588- 2026 10 Sep, 2017 Well woman exam with routine gynecological exam Z01.419 ; Irregular menses N92.6 and Migraines G43.909 [place] [address] [place] [id number] [place] [address] 77364- 9922 17 Aug, 2017 Raynauds disease I73.00 ; Migraines G43.909 ; Recurrent major depressive disorder, in full remission F33.42 ; Anxiety disorder, unspecified F41.9 and Tobacco abuse counseling Z71.6 [place] [address] [place] [id number] [place] [address] 45227- 0480 Jul, [place] [address] [place] [id number] [place] [address] 71969- 9772 Jul, Recurrent major depressive disorder, in full remission F33.42 and Migraines G43.909 [place] [address] [place] [id number] [place] [address] 43786- 9058 Jul, Migraines G43.909 ; Raynauds disease I73.00 ; Mitral valve prolapse I34.1 ; High risk medication use Z79.899 ; Controlled substance agreement signed Z79.899 ; Recurrent major depressive disorder, in full remission F33.42 and Smoking F17.200 [place] [address] [place] [id number] [place] [address] 87074- 8760 Jun, Chronic tension-type headache, intractable G44.221 [place] [address] 00213- 0361 Jan, Chronic tension-type headache, intractable G44.221 [place] [address] 61256- 2552 Jan, Chronic tension-type headache, intractable G44.221 [place] [address] 13628- 0814 Oct, Bronchitis J40 [place] [address] 90493- 6958 September, Encounter for IUD removal Z30.432 and control counseling Z30.09 [place] [address] 76857- 6804 September, [place] [address] 61914- 6606 Aug, Chronic tension-type headache, intractable G44.221 [place] [address] 04829- 4195 Aug, Chronic tension-type headache, intractable G44.221 ; Migraines G43.909 and Anxiety disorder, unspecified F41.9 [place] [address] [place] [id number] [place] [address] 28041- 0319 Aug, Anxiety disorder, unspecified F41.9 and Migraines G43.909 [place] [address] [place] [id number] [place] [address] 70530- 4646 Jul, Bronchitis J40 [place] [address] 63022- 6363 Jul, Migraines G43.909 ; Anxiety disorder, unspecified F41.9 and Chronic tension-type headache, intractable G44.221 [place] [address] 33878- 9458 13 Jun, 2016 Hx of migraines Z86.69 [place] [address] [place] [id number] [place] [address] 44162- 6039 15 Apr, 2016 Diarrhea, unspecified type R19.7 and Other fatigue R53.83 [facility] [address] 44609- 1307 09 Mar, 2016 [place] [address] 50061- 0935 Feb, Hx of migraines Z86.69 ; Mitral valve prolapse I34.1 and Anxiety disorder, unspecified F41.9 [place] [address] 42904- 7671 08 Jan, 2016 Vaginal discharge N89.8 ; Vaginal bleeding N93.9 and IUD ( intrauterine device) in place Z97.5 [place] [address] 02491- 7527 Dec, [place] [address] 10747- 9104 Nov, [place] [address] 80204- 4023 Nov, Yeast infection B37.9 [facility] [address] [place] [id number] [place] [address] 13881- 4246 Nov, Yeast infection B37.9 [facility] [address] [place] [id number] [place] [address] 08194 -3320 Nov, Left wrist pain M25.532 [facility] [address] [place] [id number] [place] [address] 83108- 0071 Nov, [place] [address] 92294- 5350 Oct, Hx of migraines Z86.69 [facility] [address] [place] [id number] [place] [address] 58782- 9460 Oct, Migraines G43.909 [facility] [address] [place] [id number] [place] [address] 86370- 2372 September, [facility] [address] 66862- 0386 September, Migraines G43.909 [facility] [address] [place] [id number] [place] [address] 41640- 5886 Aug, Hx of migraines Z86.69 ; Anxiety disorder, unspecified F41.9 ; Migraines G43.909 ; Back pain M54.9 ; Smoking F17.200 and Constipation K59.00 [place] [address] 18592- 5683 Jul, [place] [address] 90058- 6290 Jul, Anxiety disorder, unspecified F41.9 and Depression, unspecified depression type F32.9 [place] [address] 04963- 6115 Apr, [place] [address] 09194- 4594 Apr, Leg pain M79.606 ; Hx of migraines Z86.69 ; Anxiety disorder , unspecified F41.9 and Migraines G43.909 [place] [address] [place] [id number] [place] [address] 23615- 6975 Mar, Migraines G43.909 [place] [address] [place] [id number] [place] [address] 22981- 9490 Mar, [place] [address] 22260- 2205 Mar, General medical exam Z00.00 [place] [address] 55535- 0294 Mar, [place] [address] 83908- 7365 05 Mar, 2015 General medical exam Z00.00 ; Hx of migraines Z86.69 ; Raynauds disease I73.00 ; Mitral valve prolapse I34.1 ; Anxiety disorder, unspecified F41.9 ; Dietary counseling Z71.3 and Exercise counseling Z71.89 [facility] [address] [facility] [id number] [address]- 3251 May, [facility] [address] [address]- 3085 May, [facility] [address] [facility] [id number] [address] 0951 May, [facility] [address] [place] [id number] [address]- 7157 May, IMMUNIZATIONS No Known Immunizations SOCIAL HISTORY Never Assessed REASON FOR VISIT New provider visit----Ghassan, trying to conceive PLAN OF CARE Activity Details Follow Up 3 months or as indicated by lab Reason: VITAL SIGNS Height 63 in 2017-12-29 Weight 122 lbs 2017-12-29 Temperature 97.9 degrees Fahrenheit 2017-12-29 Heart Rate 90 bpm 2017-12-29 Respiratory Rate 20 2017-12-29 BMI 21.61 kg/m2 2017-12-29 Blood pressure systolic 100 mmHg 2017-12-29 Blood pressure diastolic 60 mmHg 2017-12-29 MEDICATIONS Medication Instructions Dosage Frequency Start Date End Date Duration Status Lexapro 10 mg Orally Once a day 1 tablet 24h 90 days Active Clonidine HCl 0.1 MG Orally 3 times a day 1 tablet 8h Active Tramadol HCl Active Vol-Care Rx 1 Orally Once a day 1 tablet 24h 10 Sep, 2017 Active RESULTS No Results PROCEDURES No Known procedures [...]
--- OUTSIDE RECORDS SUMMARY | 2018-07-25 14:44 | XMS REPORT ---
Author Author AYAN RIVER [facility] Address [address] [place] [address] Care Team Providers Care Android Software Engineer Name Role Phone AYAN RIVER Unavailable PROBLEMS Type Condition ICD9-CM Code OYW35-VV Code Onset Dates Condition Status SNOMED Code Problem Mitral valve prolapse I34.1 Active 083505432 Problem Anxiety disorder, unspecified F41.9 Active 549846874 Problem Irregular menses N92.6 Active 618968201 Problem Tobacco abuse counseling Z71.6 Active 994084289 Problem Migraines G43.909 Active 71171957 Problem Raynauds disease I73.00 Active 229679470 Problem Recurrent major depressive disorder, in full remission F33.42 Active 48841205 Problem Smoking F17.200 Active 79402574 ALLERGIES No Information ENCOUNTERS Encounter Location Date Diagnosis [place] [id number] 70230- 8162 Dec, [place] [address] 40605- 5102 Oct, Well woman exam with routine gynecological exam Z01.419 [facility] [address] 14579- 7859 Oct, [facility] [address] 37022- 4278 September, [facility] [address] 59362- 6224 September, Encounter for test, result unknown Z32.00 [facility] [address] 72025- 9707 September, [facility] [address] 97706- 1668 September, [facility] [address] [place] [address] [place] [id number] [id number] September, Dental examination Z01.20 [place] [address] [place] [address] 36841- 6650 September, Well woman exam with routine gynecological exam Z01.419 ; Irregular menses N92.6 and Migraines G43.909 [place] [address] [place] [id number] [place] [address] 22781- 2484 17 Aug, 2017 Raynauds disease I73.00 ; Migraines G43.909 ; Recurrent major depressive disorder, in full remission F33.42 ; Anxiety disorder, unspecified F41.9 and Tobacco abuse counseling Z71.6 [place] [address] [place] [address] 25015- 2226 Jul, [place] [address] [place] [id number] [place] [address] 89772- 1673 Jul, Recurrent major depressive disorder, in full remission F33.42 and Migraines G43.909 [place] [address] [place] [id number] [place] [address] 57064- 1785 Jul, Migraines G43.909 ; Raynauds disease I73.00 ; Mitral valve prolapse I34.1 ; High risk medication use Z79.899 ; Controlled substance agreement signed Z79.899 ; Recurrent major depressive disorder, in full remission F33.42 and Smoking F17.200 [place] [address], [place] [address]- 2395 Jun, Chronic tension-type headache, intractable G44.221 [place] [address] [place] [id number] [place] [address] 58372- 3818 Jan, Chronic tension-type headache, intractable G44.221 [place] [address] [place] [address] 33168- 8941 Jan, Chronic tension-type headache, intractable G44.221 [place] [address] 19458- 0282 Oct, Bronchitis J40 [place] [address] 12763- 7303 September, Encounter for IUD removal Z30.432 and control counseling Z30.09 [place] [address] 81036- 5232 September, [place] [address] 99165- 1386 Aug, Chronic tension-type headache, intractable G44.221 [place] [address] 65889- 2315 Aug, Chronic tension-type headache, intractable G44.221 ; Migraines G43.909 and Anxiety disorder, unspecified F41.9 [place] [address] 37397- 7112 Aug, Anxiety disorder, unspecified F41.9 and Migraines G43.909 [place] [address] 91736- 0304 Jul, Bronchitis J40 [place] [address] 67441- 7475 Jul, Migraines G43.909 ; Anxiety disorder, unspecified F41.9 and Chronic tension-type headache, intractable G44.221 [place] [address] 09617- 1296 13 Jun, 2016 Hx of migraines Z86.69 [place] [address] 28968- 3647 Apr, Diarrhea, unspecified type R19.7 and Other fatigue R53.83 [place] [address] 93045- 8983 Mar, [place] [address] 07186- 4680 Feb, Hx of migraines Z86.69 ; Mitral valve prolapse I34.1 and Anxiety disorder, unspecified F41.9 [facility] [address] [place] [id number] [place] [address] 90802- 2693 08 Jan, 2016 Vaginal discharge N89.8 ; Vaginal bleeding N93.9 and IUD ( intrauterine device) in place Z97.5 [facility] [address] [place] [id number] [place] [address] 16034- 2513 Dec, [facility] [address] [place] [id number] [place] [address] 50054- 9053 Nov, [facility] [address] [place] [id number] [place] [address] 99828- 5103 Nov, Yeast infection B37.9 [facility] [address] [place] [id number] [place] [address] 36712- 9537 Nov, Yeast infection B37.9 [facility] [address] [place] [id number] [place] [address] 47277 -7370 Nov, Left wrist pain M25.532 [place] [address] [place] [id number] [place] [address] 20649- 8633 Nov, [facility] [address] [place] [id number] [place] [address] 49612- 0108 Oct, Hx of migraines Z86.69 [facility] [address] [place] [id number] [place] [address] 97583- 3830 Oct, Migraines G43.909 [place] [address] [place] [id number] [place] [address] 44972- 8549 September, [facility] [address] [place] [id number] [place] [address] 92500- 9937 September, Migraines G43.909 [facility] [address] [place] [id number] [place] [address] 72110- 8240 Aug, Hx of migraines Z86.69 ; Anxiety disorder, unspecified F41.9 ; Migraines G43.909 ; Back pain M54.9 ; Smoking F17.200 and Constipation K59.00 [place] [address] 53107- 3844 Jul, [place] [address] 72692- 5801 Jul, Anxiety disorder, unspecified F41.9 and Depression, unspecified depression type F32.9 [place] [address] 53096- 7384 Apr, [address] 24850- 4423 Apr, Leg pain M79.606 ; Hx of migraines Z86.69 ; Anxiety disorder , unspecified F41.9 and Migraines G43.909 [place] [address] 41452- 8677 Mar, Migraines G43.909 [place] [address] 01236- 9944 Mar, [place] [address] 77267- 6485 Mar, General medical exam Z00.00 [place] [address] 55431- 3221 Mar, [place] [address] 97167- 5622 Mar, General medical exam Z00.00 ; Hx of migraines Z86.69 ; Raynauds disease I73.00 ; Mitral valve prolapse I34.1 ; Anxiety disorder, unspecified F41.9 ; Dietary counseling Z71.3 and Exercise counseling Z71.89 [place] [address] 29363- 7187 May, [place] [address] 53334- 7413 May, [facility] [address] [facility] [id number] [place] [address]- 8841 May, [facility] [address] [facility] [id number] [place] [address]- 8817 May, IMMUNIZATIONS No Known Immunizations SOCIAL HISTORY Never Assessed REASON FOR VISIT update [facility] PLAN OF CARE VITAL SIGNS MEDICATIONS Unknown [...]
--- OUTSIDE RECORDS SUMMARY | 2018-07-25 14:44 | XMS REPORT ---
Author Author AYAN RIVER [facility] Address [address] [place] [address] Care Team Providers Care Health Companion Name Role Phone AYAN RIVER Unavailable PROBLEMS Type Condition ICD9-CM Code GGS10-GV Code Onset Dates Condition Status SNOMED Code Problem Mitral valve prolapse I34.1 Active 046666174 Problem Anxiety disorder, unspecified F41.9 Active 221300887 Problem Irregular menses N92.6 Active 488338820 Problem Tobacco abuse counseling Z71.6 Active 351612075 Problem Migraines G43.909 Active 85886792 Problem Raynauds disease I73.00 Active 990748584 Problem Recurrent major depressive disorder, in full remission F33.42 Active 19511337 Problem Smoking F17.200 Active 10946166 ALLERGIES No Information ENCOUNTERS Encounter Location Date Diagnosis [place] [address] 72306- 4093 Dec, Anxiety disorder, unspecified F41.9 [place] [address] 23294- 9106 Oct, Well woman exam with routine gynecological exam Z01.419 [place] [address] 31946- 0465 Oct, [facility] [address] 60872- 4709 September, [place] [address] 55464- 0105 September, Encounter for test, result unknown Z32.00 [facility] [address] 60988- 9027 September, [place] [address] [place] [address]- 8689 16 Sep, 2017 [facility] [address] [place] [address] [address]VE [id number] [id number] September, Dental examination Z01.20 [place] [address] [place] [id number] [place] [address] 08472- 4279 10 Sep, 2017 Well woman exam with routine gynecological exam Z01.419 ; Irregular menses N92.6 and Migraines G43.909 [place] [address] [place] [id number] [place] [address] 07446- 6501 17 Aug, 2017 Raynauds disease I73.00 ; Migraines G43.909 ; Recurrent major depressive disorder, in full remission F33.42 ; Anxiety disorder, unspecified F41.9 and Tobacco abuse counseling Z71.6 [place] [address] [place] [id number] [place] [address] 01449- 3876 Jul, [place] [address] [place] [id number] [place] [address] 03025- 0230 Jul, Recurrent major depressive disorder, in full remission F33.42 and Migraines G43.909 [place] [address] [place] [id number] [place] [address] 22215- 8882 Jul, Migraines G43.909 ; Raynauds disease I73.00 ; Mitral valve prolapse I34.1 ; High risk medication use Z79.899 ; Controlled substance agreement signed Z79.899 ; Recurrent major depressive disorder, in full remission F33.42 and Smoking F17.200 [place] [address] [place] [address] 51178- 8366 Jun, Chronic tension-type headache, intractable G44.221 [place] [address] [place] [id number] [place] [address] 77230- 7071 Jan, Chronic tension-type headache, intractable G44.221 [place] [address] [place] [address] 40282- 3239 Jan, Chronic tension-type headache, intractable G44.221 [place] [address] [place] [id number] [place] [address] 65825- 0809 Oct, Bronchitis J40 [place] [address] 84881- 7933 15 Sep, 2016 Encounter for IUD removal Z30.432 and control counseling Z30.09 [place] [address] 33815- 3469 September, [place] [address] 17402- 6620 Aug, Chronic tension-type headache, intractable G44.221 [place] [address] 73142- 9695 Aug, Chronic tension-type headache, intractable G44.221 ; Migraines G43.909 and Anxiety disorder, unspecified F41.9 [place] [address] 57844- 6676 Aug, Anxiety disorder, unspecified F41.9 and Migraines G43.909 [place] [address] 90539- 9499 Jul, Bronchitis J40 [place] [address] [place] [id number] [place] [address] 93211- 2161 Jul, Migraines G43.909 ; Anxiety disorder, unspecified F41.9 and Chronic tension-type headache, intractable G44.221 [place] [address] [place] [id number] [place] [address] 07463- 6279 13 Jun, 2016 Hx of migraines Z86.69 [place] [address] 73096- 5713 Apr, Diarrhea, unspecified type R19.7 and Other fatigue R53.83 [place] [address] [place] [id number] [place] [address] 99425- 3990 Mar, [place] [address] [place] [id number] [place] [address] 71300- 7425 07 Feb, 2016 Hx of migraines Z86.69 ; Mitral valve prolapse I34.1 and Anxiety disorder, unspecified F41.9 [facility] [address] [place] [id number] [place] [address] 83685- 3535 08 Jan, 2016 Vaginal discharge N89.8 ; Vaginal bleeding N93.9 and IUD ( intrauterine device) in place Z97.5 [place] [address] [place] [id number] [place] [address] 84714- 0084 Dec, [place] [address] 58950- 4531 Nov, [facility] [address] 07257- 2665 Nov, Yeast infection B37.9 [place] [address] 42203- 1714 Nov, Yeast infection B37.9 [facility] [address] [place] [id number] [place] [address] 26448 -0957 Nov, Left wrist pain M25.532 [place] [address] 64679- 5071 Nov, [facility] [address] [place] [id number] [place] [address] 71014- 4135 Oct, Hx of migraines Z86.69 [place] [address] [place] [id number] [place] [address] 61433- 0395 Oct, Migraines G43.909 [place] [address] 75343- 7192 September, [place] [address] 74186- 7194 September, Migraines G43.909 [place] [address] [place] [id number] [place] [address] 08498- 7081 Aug, Hx of migraines Z86.69 ; Anxiety disorder, unspecified F41.9 ; Migraines G43.909 ; Back pain M54.9 ; Smoking F17.200 and Constipation K59.00 [place] [address] [place] [id number] [place] [address] 26050- 7226 Jul, [place] [address] [place] [id number] [place] [address] 00887- 3106 Jul, Anxiety disorder, unspecified F41.9 and Depression, unspecified depression type F32.9 [place] [address] 31947- 1895 Apr, [place] [address] 02683- 2063 Apr, Leg pain M79.606 ; Hx of migraines Z86.69 ; Anxiety disorder , unspecified F41.9 and Migraines G43.909 [place] [address] 72475- 2015 Mar, Migraines G43.909 [place] [address] [place] [id number] [place] [address] 89429- 3595 Mar, [place] [address] [place] [id number] [place] [address] 65552- 1501 Mar, General medical exam Z00.00 [place] [address] [place] [id number] [place] [address] 77308- 8592 Mar, [place] [address] [place] [id number] [place] [address] 35927- 2006 Mar, General medical exam Z00.00 ; Hx of migraines Z86.69 ; Raynauds disease I73.00 ; Mitral valve prolapse I34.1 ; Anxiety disorder, unspecified F41.9 ; Dietary counseling Z71.3 and Exercise counseling Z71.89 [place] [address] [place] [id number] [place] [id number] May, [place] [id number] [place], [place] [id number] May, [facility] [address] [facility] [id number] [place] [address] May, [facility] [address] [facility] [id number] [place] [address] May, IMMUNIZATIONS No Known Immunizations SOCIAL HISTORY Never Assessed REASON FOR VISIT lab results PLAN OF CARE VITAL SIGNS MEDICATIONS [...]
--- OUTSIDE RECORDS SUMMARY | 2018-07-25 14:44 | XMS REPORT ---
Author Author JENNIFERKENNEDYLD Organization [facility] Address [address] [place] [address] Care Team Providers Care Car Unloader Name Role Phone RODRIGUEZLD Song Unavailable PROBLEMS Type Condition ICD9-CM Code CXW20-EL Code Onset Dates Condition Status SNOMED Code Problem Mitral valve prolapse I34.1 Active 200056598 Problem Anxiety disorder, unspecified F41.9 Active 175165109 Problem Irregular menses N92.6 Active 422412479 Problem Tobacco abuse counseling Z71.6 Active 441314707 Problem Migraines G43.909 Active 13789049 Problem Raynauds disease I73.00 Active 759505820 Problem Recurrent major depressive disorder, in full remission F33.42 Active 96686298 Problem Smoking F17.200 Active 96036741 ALLERGIES No Information ENCOUNTERS Encounter Location Date Diagnosis [facility] [address] [address] Dec, Anxiety disorder, unspecified F41.9 [facility] [address] [place] [id number] [place] [address] 66977- 1244 Oct, Well woman exam with routine gynecological exam Z01.419 [facility] [id number] [place] [address] 05243- 4212 Oct, [facility] [id number] [place] [address] 41922- 9818 September, [facility] [address] 09[address]- [address] September, Encounter for test, result unknown Z32.00 [facility] [id number] [place] [address] 14776- 9927 September, [facility] [address] 45940- [address] September, [facility] [place] [address] AVE [id number] [id number] September, Dental examination Z01.20 [place] [address] [place] [address] 75071- 1458 10 Sep, 2017 Well woman exam with routine gynecological exam Z01.419 ; Irregular menses N92.6 and Migraines G43.909 [place] [id number] [place] [address] 79402- 2811 Aug, Raynauds disease I73.00 ; Migraines G43.909 ; Recurrent major depressive disorder, in full remission F33.42 ; Anxiety disorder, unspecified F41.9 and Tobacco abuse counseling Z71.6 [place] [id number] [place] [address] 88085- 2532 Jul, [place] [id number] [place] [address] 80359- 8380 Jul, Recurrent major depressive disorder, in full remission F33.42 and Migraines G43.909 [place] [id number] [place] [address] 85946- 3209 Jul, Migraines G43.909 ; Raynauds disease I73.00 ; Mitral valve prolapse I34.1 ; High risk medication use Z79.899 ; Controlled substance agreement signed Z79.899 ; Recurrent major depressive disorder, in full remission F33.42 and Smoking F17.200 [place] [address] [place] [address] 54191- 9883 Jun, Chronic tension-type headache, intractable G44.221 [place] [id number] [place] [address] 13690- 6274 Jan, Chronic tension-type headache, intractable G44.221 [place] [id number] [place] [address] 56800- 7488 Jan, Chronic tension-type headache, intractable G44.221 [place] [address] 56088- 8955 Oct, Bronchitis J40 [place] [address] 21714- 4805 15 Sep, 2016 Encounter for IUD removal Z30.432 and control counseling Z30.09 [place] [address] 72531- 5717 September, [place] [address] 08595- 1606 Aug, Chronic tension-type headache, intractable G44.221 [place] [address] 05229- 2980 Aug, Chronic tension-type headache, intractable G44.221 ; Migraines G43.909 and Anxiety disorder, unspecified F41.9 [place] [address] 91726- 1870 Aug, Anxiety disorder, unspecified F41.9 and Migraines G43.909 [place] [address] 16217- 0950 Jul, Bronchitis J40 [place] [address] 36632- 9253 Jul, Migraines G43.909 ; Anxiety disorder, unspecified F41.9 and Chronic tension-type headache, intractable G44.221 [place] [address] 73087- 2255 13 Jun, 2016 Hx of migraines Z86.69 [place] [address] 69007- 3144 Apr, Diarrhea, unspecified type R19.7 and Other fatigue R53.83 [place] [address] 51339- 8945 Mar, [place] [address] [place] [address] 0[address] 07 Feb, 2016 Hx of migraines Z86.69 ; Mitral valve prolapse I34.1 and Anxiety disorder, unspecified F41.9 [facility] [id number] [place] [address] 42288- 4223 08 Jan, 2016 Vaginal discharge N89.8 ; Vaginal bleeding N93.9 and IUD ( intrauterine device) in place Z97.5 [place] [address] 19675- 8021 Dec, [facility] [address] 33922- 3384 Nov, [facility] [address] 45641- 0294 Nov, Yeast infection B37.9 [place] [address] 97704- 0748 Nov, Yeast infection B37.9 [facility] [id number] [place] [address] 22745 -6689 Nov, Left wrist pain M25.532 [place] [address] 98252- 1616 Nov, [facility] [address] 84505- 6706 Oct, Hx of migraines Z86.69 [place] [address] 68445- 4748 Oct, Migraines G43.909 [place] [address] 31355- 3716 September, [place] [address] 14297- 8614 September, Migraines G43.909 [facility] [id number] [place] [address] 78503- 6277 Aug, Hx of migraines Z86.69 ; Anxiety disorder, unspecified F41.9 ; Migraines G43.909 ; Back pain M54.9 ; Smoking F17.200 and Constipation K59.00 [place] [address] 27328- 3027 Jul, [place] [address] 99527- 3198 Jul, Anxiety disorder, unspecified F41.9 and Depression, unspecified depression type F32.9 [place] [address] 29598- 0019 Apr, [place] [address] 93037- 6783 Apr, Leg pain M79.606 ; Hx of migraines Z86.69 ; Anxiety disorder , unspecified F41.9 and Migraines G43.909 [place] [address] 42430- 6961 Mar, Migraines G43.909 [place] [address] 33387- 4507 Mar, [place] [address] 27935- 3553 Mar, General medical exam Z00.00 [place] [address] 33336- 9276 Mar, [place] [address] 68515- 1220 Mar, General medical exam Z00.00 ; Hx of migraines Z86.69 ; Raynauds disease I73.00 ; Mitral valve prolapse I34.1 ; Anxiety disorder, unspecified F41.9 ; Dietary counseling Z71.3 and Exercise counseling Z71.89 [place] [address] 05279- 2666 May, [place] [address] [place] [address]- 3592 May, [facility] [address] [facility] [id number] [place] [address]- 2594 May, [facility] [address] [facility] [id number] [place] [address]- 8631 May, IMMUNIZATIONS No Known Immunizations SOCIAL HISTORY [...]
--- OUTSIDE RECORDS SUMMARY | 2018-07-25 14:44 | XMS REPORT ---
Author Author NATHALIE HOUSE [facility] Address [address] [place] [address] Care Team Providers Care Hvac Project Engineer Name Role Phone CHRISTIANO HOUSEARDO Unavailable PROBLEMS Type Condition ICD9-CM Code WNS51-DO Code Onset Dates Condition Status SNOMED Code Problem Mitral valve prolapse I34.1 Active 514873306 Problem Anxiety disorder, unspecified F41.9 Active 056220352 Problem Irregular menses N92.6 Active 389381407 Problem Tobacco abuse counseling Z71.6 Active 290636665 Problem Migraines G43.909 Active 44190119 Problem Raynauds disease I73.00 Active 898105495 Problem Recurrent major depressive disorder, in full remission F33.42 Active 16025849 Problem Smoking F17.200 Active 35108047 ALLERGIES Substance Reaction Event Type Date Status Penicillin V Potassium Unknown Drug Allergy September, Active Maxalt anaphylaxis Drug Allergy September, Active Cipro stomach upset Drug Allergy September, Active ENCOUNTERS Encounter Location Date Diagnosis [place] [address] [place] [address] 31380- 6930 Dec, Anxiety disorder, unspecified F41.9 [place] [address] [place] [address] 63176- 4090 Oct, Well woman exam with routine gynecological exam Z01.419 [place] [address] [place] [address] 56166- 5693 Oct, [place] [address] [place] [id number] [place] [address] 10298- 1238 September, [place] [address] [place] [address] [id number] [place] [address] 05821- 8309 September, Encounter for test, result unknown Z32.00 [place] [address] [address] 3170 September, [place] [address] [place] [id number] [place] [address] 88404- 5918 September, [facility] [id number] [id number] September, Dental examination Z01.20 [place] [address] [place] [address] [id number] [place] [address] 63419- 7261 10 Sep, 2017 Well woman exam with routine gynecological exam Z01.419 ; Irregular menses N92.6 and Migraines G43.909 [place] [address] [place] [address] [id number] [place] [address] 10799- 5745 Aug, Raynauds disease I73.00 ; Migraines G43.909 ; Recurrent major depressive disorder, in full remission F33.42 ; Anxiety disorder, unspecified F41.9 and Tobacco abuse counseling Z71.6 [place] [address] [place] [id number] [place] [address] 57040- 8590 Jul, [place] [address] [place] [id number] [place] [address] 63431- 9893 Jul, Recurrent major depressive disorder, in full remission F33.42 and Migraines G43.909 [place] [address] [place] [id number] [place] [address] 37642- 3004 Jul, Migraines G43.909 ; Raynauds disease I73.00 ; Mitral valve prolapse I34.1 ; High risk medication use Z79.899 ; Controlled substance agreement signed Z79.899 ; Recurrent major depressive disorder, in full remission F33.42 and Smoking F17.200 [place] [address] [place] [id number] [place] [address] 51394- 6351 Jun, Chronic tension-type headache, intractable G44.221 [place] [address] [place] [id number] [place] [address] 75098- 7804 Jan, Chronic tension-type headache, intractable G44.221 [place] [address] 73378- 9592 Jan, Chronic tension-type headache, intractable G44.221 [place] [address] 43350- 9610 Oct, Bronchitis J40 [place] [address] 29366- 9954 September, Encounter for IUD removal Z30.432 and control counseling Z30.09 [place] [address] 57135- 3897 September, [place] [address] 96308- 4539 Aug, Chronic tension-type headache, intractable G44.221 [place] [address] 11061- 4280 Aug, Chronic tension-type headache, intractable G44.221 ; Migraines G43.909 and Anxiety disorder, unspecified F41.9 [place] [address] 26320- 2752 Aug, Anxiety disorder, unspecified F41.9 and Migraines G43.909 [place] [address] 15285- 6040 Jul, Bronchitis J40 [place] [address] 55049- 5377 Jul, Migraines G43.909 ; Anxiety disorder, unspecified F41.9 and Chronic tension-type headache, intractable G44.221 [place] [address] 11863- 3014 13 Jun, 2016 Hx of migraines Z86.69 [place] [address] 91795- 1824 15 Apr, 2016 Diarrhea, unspecified type R19.7 and Other fatigue R53.83 [place] [address] [place] [id number] [place] [address] 24006- 2102 Mar, [facility] [address] [id number] [place] [address] 08769- 1276 Feb, Hx of migraines Z86.69 ; Mitral valve prolapse I34.1 and Anxiety disorder, unspecified F41.9 [facility] [id number] [place] [address] 41652- 7545 08 Jan, 2016 Vaginal discharge N89.8 ; Vaginal bleeding N93.9 and IUD ( intrauterine device) in place Z97.5 [facility] [id number] [place] [address] 58469- 8115 Dec, [facility] [address] 09399- 4923 Nov, [facility] [address] [id number] [place] [address] 67291- 2876 Nov, Yeast infection B37.9 [facility] [id number] [place] [address] 29671- 0041 Nov, Yeast infection B37.9 [facility] [id number] [place] [address] 41034 -6044 Nov, Left wrist pain M25.532 [facility] [id number] [place] [address] 47414- 6792 Nov, [facility] [address] [place] [id number] [place] [address] 30195- 8514 Oct, Hx of migraines Z86.69 [facility] [id number] [place] [address] 57590- 5319 Oct, Migraines G43.909 [facility] [address] [id number] [place] [address] 48848- 7779 September, [facility] [address] [id number] [place] [address] 97953- 0883 September, Migraines G43.909 [place] [address] [place] [address] [id number] [place] [address] 54572- 2361 Aug, Hx of migraines Z86.69 ; Anxiety disorder, unspecified F41.9 ; Migraines G43.909 ; Back pain M54.9 ; Smoking F17.200 and Constipation K59.00 [place] [address] 46858- 1130 Jul, [place] [address] 30996- 0854 Jul, Anxiety disorder, unspecified F41.9 and Depression, unspecified depression type F32.9 [place] [address] 87883- 9743 Apr, [place] [address] 32293- 9502 Apr, Leg pain M79.606 ; Hx of migraines Z86.69 ; Anxiety disorder , unspecified F41.9 and Migraines G43.909 [place] [address] 69383- 7592 Mar, Migraines G43.909 [place] [address] 63327- 5922 Mar, [place] [address] 10134- 2994 Mar, General medical exam Z00.00 [place] [address] [place] [id number] [place] [address] 81288- 8077 Mar, [address] 06335- 6109 Mar, General medical exam Z00.00 ; Hx of migraines Z86.69 ; Raynauds disease I73.00 ; Mitral valve prolapse I34.1 ; Anxiety disorder, unspecified F41.9 ; Dietary counseling Z71.3 and Exercise counseling Z71.89 [place] [address] [facility] [id number] [place] [address]- 9472 May, [facility] [address] [facility] [id number], [place] [address]- 6475 May, [facility] [address] [facility] [id number], [place] [address]- 2204 May, [facility] [address] [facility] [id number] [address]- 1711 May, IMMUNIZATIONS No Known Immunizations SOCIAL HISTORY Never Assessed REASON FOR VISIT pain/swelling PLAN OF CARE Activity Details Follow Up 1 Week Reason:UNRULY W HYGIENE VITAL SIGNS Height 63 in 2017-09-26 Blood pressure systolic 116 mmHg 2017-09-26 Blood pressure diastolic 71 mmHg 2017-09-26 MEDICATIONS Medication Instructions Dosage Frequency Start Date End Date Duration Status Progesterone Not-Taking Topamax 200 mg Orally Twice a day 1 tablet 12h 90 days Active Clonidine HCl 0.1 MG Orally 3 times a day 1 tablet 8h 60 days Active Zofran Not-Taking Vol-Care Rx 1 Orally Once a day 1 tablet 24h September, 30 day(s) Active Lexapro 10 mg Orally Once a day 1 tablet 24h 90 days Active Azithromycin 250 MG Orally Once a day 2 tablets on the first day, then 1 tablet daily for 4 days 24h September, September, 5 days Active Ondansetron 4 MG Orally 3 times a day if needed for nausea dissolve one tablet Aug, 10 days Active ProAir HFA 108 (90 Base) MCG/ACT Inhalation every 4 hrs 2 puffs as needed 4h 21 Jul, 2016 Not-Taking Topiramate 50 mg Orally Twice a day 1 tablet 12h September, 45 days Active Tramadol HCl Active RESULTS No Results PROCEDURES Procedure Date Ordered Result Body Site LTD ORAL EVALUATION - PROBLEM FOCUS September 26, 2017 INTRAORL-PERIAPICAL 1 FILM 03167 September 26, 2017 BITEWING - SINGLE FILM September 26, 2017 INSTRUCTIONS MEDICATIONS ADMINISTERED No Known Medications MEDICAL (GENERAL) HISTORY Type Description Date Medical History migraine headaches Medical History sleep apnea Medical History arachnoid cyst Medical History mitral valve prolapse Medical History raynauds syndrome diagnosed 2010 Medical History anxiety and depression Surgical History section x 2 Surgical History angiogram Hospitalization History Softball hit to the throat
--- OUTSIDE RECORDS SUMMARY | 2018-07-25 14:44 | XMS REPORT ---
Author Author AYAN RIVER [facility] Address [address] [place] [address] Care Team Providers Care Railway Signal Electrician Name Role Phone AYAN RIVER Unavailable PROBLEMS Type Condition ICD9-CM Code ZWY43-QN Code Onset Dates Condition Status SNOMED Code Problem Mitral valve prolapse I34.1 Active 648656814 Problem Anxiety disorder, unspecified F41.9 Active 372745189 Problem Irregular menses N92.6 Active 313180200 Problem Tobacco abuse counseling Z71.6 Active 925675743 Problem Migraines G43.909 Active 40224611 Problem Raynauds disease I73.00 Active 495315846 Problem Recurrent major depressive disorder, in full remission F33.42 Active 68917897 Problem Smoking F17.200 Active 94019599 ALLERGIES No Information ENCOUNTERS Encounter Location Date Diagnosis [facility] [place] [address] [address]- [address] Dec, Anxiety disorder, unspecified F41.9 and Well woman exam with routine gynecological exam Z01.419 [place] [address] [place] [id number] [place] [address] 12098- 7408 Oct, Well woman exam with routine gynecological exam Z01.419 [facility] [place] [id number] [place] [address] 30594- 2500 Oct, [facility] [place] [id number] [place] [address] 26383- 1706 September, [place] [address] 79896- 7826 September, Encounter for test, result unknown Z32.00 [place] [address] [place] [id number] [place] [address] 81942- 8669 September, [place] [address] [address] September, [facility] JILLIAN Matute [facility] [id number] [id number] September, Dental examination Z01.20 [place] [address] [place] [address] 04444- 3295 September, Well woman exam with routine gynecological exam Z01.419 ; Irregular menses N92.6 and Migraines G43.909 [place] [address] [place] [address] 98741- 0824 Aug, Raynauds disease I73.00 ; Migraines G43.909 ; Recurrent major depressive disorder, in full remission F33.42 ; Anxiety disorder, unspecified F41.9 and Tobacco abuse counseling Z71.6 [place] [id number] [place] [address] 15124- 2594 Jul, [place] [address] [place] [address] 27241- 1944 Jul, Recurrent major depressive disorder, in full remission F33.42 and Migraines G43.909 [place] [address] [place] [address] 90412- 3695 Jul, Migraines G43.909 ; Raynauds disease I73.00 ; Mitral valve prolapse I34.1 ; High risk medication use Z79.899 ; Controlled substance agreement signed Z79.899 ; Recurrent major depressive disorder, in full remission F33.42 and Smoking F17.200 [place] [address] [address] 8747 Jun, Chronic tension-type headache, intractable G44.221 [place] [address] [place] [address] 84338- 8967 Jan, Chronic tension-type headache, intractable G44.221 [place] [address] [place] [address] 71847- 5818 Jan, Chronic tension-type headache, intractable G44.221 [place] [address] 96550- 8259 Oct, Bronchitis J40 [place] [address] 77679- 0067 September, Encounter for IUD removal Z30.432 and control counseling Z30.09 [place] [address] 69482- 5675 September, [place] [address] 99574- 9059 Aug, Chronic tension-type headache, intractable G44.221 [place] [address] 08692- 9561 Aug, Chronic tension-type headache, intractable G44.221 ; Migraines G43.909 and Anxiety disorder, unspecified F41.9 [place] [address] 31749- 5265 Aug, Anxiety disorder, unspecified F41.9 and Migraines G43.909 [place] [address] 45019- 3833 Jul, Bronchitis J40 [place] [address] 06391- 9273 Jul, Migraines G43.909 ; Anxiety disorder, unspecified F41.9 and Chronic tension-type headache, intractable G44.221 [place] [address] 97952- 6233 13 Jun, 2016 Hx of migraines Z86.69 [place] [address] 98585- 0139 Apr, Diarrhea, unspecified type R19.7 and Other fatigue R53.83 [place] [address] 95902- 3903 Mar, [facility] [place] [address] [address] [id number] [place] [address] 88972- 9457 07 Feb, 2016 Hx of migraines Z86.69 ; Mitral valve prolapse I34.1 and Anxiety disorder, unspecified F41.9 [facility] [place] [id number] [place] [address] 74461- 9522 08 Jan, 2016 Vaginal discharge N89.8 ; Vaginal bleeding N93.9 and IUD ( intrauterine device) in place Z97.5 [place] [address] [address] [id number] [place] [address] 64594- 6301 Dec, [place] [address] 99339- 5669 Nov, [facility] [place] [address] [address] [id number] [place] [address] 06766- 7973 Nov, Yeast infection B37.9 [place] [address] 83678- 5650 Nov, Yeast infection B37.9 [facility] [address] [id number] [place] [address] 54333 -4192 Nov, Left wrist pain M25.532 [place] [address] [address] [id number] [place] [address] 87370- 4985 Nov, [place] [address] [place] [address] [id number] [place] [address] 63168- 7336 Oct, Hx of migraines Z86.69 [facility] [place] [address] [address] [id number] [place] [address] 95430- 1757 Oct, Migraines G43.909 [place] [address] 86527- 6392 September, [place] [address] [place] [address] [id number] [place] [address] 08683- 7056 September, Migraines G43.909 [place] [address] 90084- 8001 Aug, Hx of migraines Z86.69 ; Anxiety disorder, unspecified F41.9 ; Migraines G43.909 ; Back pain M54.9 ; Smoking F17.200 and Constipation K59.00 [place] [address] [address] [id number] [place] [address] 36644- 6475 Jul, [place] [address] 30477- 9738 Jul, Anxiety disorder, unspecified F41.9 and Depression, unspecified depression type F32.9 [place] [address] 50922- 6207 Apr, [place] [address] 45674- 0774 Apr, Leg pain M79.606 ; Hx of migraines Z86.69 ; Anxiety disorder , unspecified F41.9 and Migraines G43.909 [place] [address] 33210- 2380 Mar, Migraines G43.909 [place] [address] 21440- 3118 Mar, [place] [address] 30805- 8195 Mar, General medical exam Z00.00 [place] [address] 76228- 9498 Mar, [place] [address] 77667- 4688 Mar, General medical exam Z00.00 ; Hx of migraines Z86.69 ; Raynauds disease I73.00 ; Mitral valve prolapse I34.1 ; Anxiety disorder, unspecified F41.9 ; Dietary counseling Z71.3 and Exercise counseling Z71.89 [place] [address] 13538- 1169 May, [facility] [place] [address] [facility] [id number] [address] 7551 May, [facility] [place] [address] [facility] [id number] [place] [address]267 May, [facility] [place] [address] [facility] [id number] [place] [address]- 8739 May, IMMUNIZATIONS No Known Immunizations SOCIAL HISTORY Never Assessed REASON FOR VISIT Requests return call PLAN OF CARE VITAL SIGNS MEDICATIONS No [...]
--- OUTSIDE RECORDS SUMMARY | 2018-07-25 14:44 | XMS REPORT ---
Author Author JENNIFERKENNEDYLD [facility] Address [address] [place] [address] Care Team Providers Care Ingot Header Name Role Phone RODRIGUEZLD Song Unavailable PROBLEMS Type Condition ICD9-CM Code JVC27-UB Code Onset Dates Condition Status SNOMED Code Problem Mitral valve prolapse I34.1 Active 730701065 Problem Anxiety disorder, unspecified F41.9 Active 773793590 Problem Irregular menses N92.6 Active 930564209 Problem Tobacco abuse counseling Z71.6 Active 150082471 Problem Migraines G43.909 Active 44579551 Problem Raynauds disease I73.00 Active 033187459 Problem Recurrent major depressive disorder, in full remission F33.42 Active 57620027 Problem Smoking F17.200 Active 22943346 ALLERGIES No Information ENCOUNTERS Encounter Location Date Diagnosis [facility] [address] [place] [address] [id number] [place] [address] 81810- 2201 Dec, Anxiety disorder, unspecified F41.9 and Well woman exam with routine gynecological exam Z01.419 [place] [address] [place] [address] 29280- 3178 Oct, Well woman exam with routine gynecological exam Z01.419 [facility] [address] [place] [address] [id number] [place] [address] 61762- 1921 Oct, [facility] [address] [id number] [place] [address] 87738- 1328 September, [facility] [address] [place] [address] [id number] [place] [address] 51361- 9072 September, Encounter for test, result unknown Z32.00 [facility] [address] [place] [address] [id number] [place] [address] 09167- 9026 September, [facility] [address] [address]- 2811 16 Sep, 2017 [facility] JILLIAN Mat[place] [facility] [address] [id number] [id number] September, Dental examination Z01.20 [place] [address] [place] [address] 42191- 2702 10 Sep, 2017 Well woman exam with routine gynecological exam Z01.419 ; Irregular menses N92.6 and Migraines G43.909 [place] [address] [place] [address] 65312- 3144 17 Aug, 2017 Raynauds disease I73.00 ; Migraines G43.909 ; Recurrent major depressive disorder, in full remission F33.42 ; Anxiety disorder, unspecified F41.9 and Tobacco abuse counseling Z71.6 [place] [address] [place] [address] 79583- 7207 Jul, [place] [address] [place] [address] 04049- 8967 Jul, Recurrent major depressive disorder, in full remission F33.42 and Migraines G43.909 [place] [address] [place] [address] 07268- 9121 Jul, Migraines G43.909 ; Raynauds disease I73.00 ; Mitral valve prolapse I34.1 ; High risk medication use Z79.899 ; Controlled substance agreement signed Z79.899 ; Recurrent major depressive disorder, in full remission F33.42 and Smoking F17.200 [place] [address] [place] [address] 26699- 8752 Jun, Chronic tension-type headache, intractable G44.221 [place] [address] [place] [address] 12367- 9836 Jan, Chronic tension-type headache, intractable G44.221 [place] [address] [place] [address] 84407- 2898 Jan, Chronic tension-type headache, intractable G44.221 [place] [address] 99684- 6517 Oct, Bronchitis J40 [place] [address] 47587- 6919 September, Encounter for IUD removal Z30.432 and control counseling Z30.09 [place] [address] 59393- 3570 September, [place] [address] 66549- 0709 Aug, Chronic tension-type headache, intractable G44.221 [place] [address] 87155- 1712 Aug, Chronic tension-type headache, intractable G44.221 ; Migraines G43.909 and Anxiety disorder, unspecified F41.9 [place] [address] 36349- 0739 Aug, Anxiety disorder, unspecified F41.9 and Migraines G43.909 [place] [address] 81791- 2147 Jul, Bronchitis J40 [place] [address] 45142- 6025 Jul, Migraines G43.909 ; Anxiety disorder, unspecified F41.9 and Chronic tension-type headache, intractable G44.221 [place] [address] 05680- 9989 13 Jun, 2016 Hx of migraines Z86.69 [place] [address] 13554- 0750 Apr, Diarrhea, unspecified type R19.7 and Other fatigue R53.83 [place] [address] 79413- 0718 Mar, [place] [address] [place] [id number] [place] [address] 06918- 0902 07 Feb, 2016 Hx of migraines Z86.69 ; Mitral valve prolapse I34.1 and Anxiety disorder, unspecified F41.9 [facility] [address] [id number] [place] [address] 74101- 7581 08 Jan, 2016 Vaginal discharge N89.8 ; Vaginal bleeding N93.9 and IUD ( intrauterine device) in place Z97.5 [facility] [address] [place] [id number] [place] [address] 77752- 9598 Dec, [place] [address] [place] [id number] [place] [address] 55752- 0632 Nov, [facility] [address] [place] [id number] [place] [address] 91530- 9756 Nov, Yeast infection B37.9 [facility] [address] [place] [id number] [place] [address] 08747- 8272 Nov, Yeast infection B37.9 [facility] [address] [place] [address] [id number] [place] [address] 49389 -3855 Nov, Left wrist pain M25.532 [place] [address] [place] [id number] [place] [address] 17537- 3382 Nov, [facility] [address] [place] [id number] [place] [address] 75263- 9978 Oct, Hx of migraines Z86.69 [facility] [address] [place] [id number] [place] [address] 57820- 3436 Oct, Migraines G43.909 [place] [address] [place] [id number] [place] [address] 11279- 8759 September, [facility] [address] [place] [id number] [place] [address] 72300- 3389 September, Migraines G43.909 [place] [address] [place] [id number] [place] [address] 51571- 6940 Aug, Hx of migraines Z86.69 ; Anxiety disorder, unspecified F41.9 ; Migraines G43.909 ; Back pain M54.9 ; Smoking F17.200 and Constipation K59.00 [place] [address] [place] [id number] [place] [address] 80912- 4497 Jul, [place] [address] 36016- 5771 Jul, Anxiety disorder, unspecified F41.9 and Depression, unspecified depression type F32.9 [place] [address] 35194- 6585 Apr, [place] [address] 20474- 1008 Apr, Leg pain M79.606 ; Hx of migraines Z86.69 ; Anxiety disorder , unspecified F41.9 and Migraines G43.909 [place] [address] 68017- 3369 Mar, Migraines G43.909 [place] [address] 29287- 9055 Mar, [place] [address] [place] [id number] [place] [address] 46614- 5296 Mar, General medical exam Z00.00 [place] [address] 50231- 7913 Mar, [place] [address] [place] [id number] [place] [address] 66404- 5718 Mar, General medical exam Z00.00 ; Hx of migraines Z86.69 ; Raynauds disease I73.00 ; Mitral valve prolapse I34.1 ; Anxiety disorder, unspecified F41.9 ; Dietary counseling Z71.3 and Exercise counseling Z71.89 [place] [address] 20144- 3313 May, [place] [address] [facility] [id number] [place]- 8282 May, [facility] [address] [facility] [id number] [address]- 5398 May, [facility] [address] [facility] [id number] [place] [address]- 0814 May, IMMUNIZATIONS No Known Immunizations SOCIAL HISTORY Never Assessed REASON FOR VISIT test (walk-in)-Blood PLAN OF CARE VITAL SIGNS MEDICATIONS No Known Medications RESULTS No Results PROCEDURES Procedure Date Ordered Result Body Site CHORIONIC GONADOTROPIN ASSAY October 12, 2017 VENIPUNCT, ROUTINE* October 12, 2017 INSTRUCTIONS MEDICATIONS ADMINISTERED No Known Medications MEDICAL (GENERAL) HISTORY Type Description Date Medical History migraine headaches Medical History sleep apnea Medical History arachnoid cyst Medical History mitral valve prolapse Medical History raynauds syndrome diagnosed 2009 Medical History anxiety and depression Surgical History section x 2 Surgical History angiogram Hospitalization History Softball hit to the throat
--- OUTSIDE RECORDS SUMMARY | 2018-07-25 14:45 | XMS REPORT ---
Author Author AYAN RIVER [facility] Address [address] [place] [address] Care Team Providers Care Kiln Furniture Saw Tender Name Role Phone AYAN RIVER Unavailable PROBLEMS Type Condition ICD9-CM Code SGL00-JR Code Onset Dates Condition Status SNOMED Code Problem Mitral valve prolapse I34.1 Active 011693314 Problem Anxiety disorder, unspecified F41.9 Active 178535970 Problem Irregular menses N92.6 Active 523821271 Problem Tobacco abuse counseling Z71.6 Active 362102055 Problem Migraines G43.909 Active 84763549 Problem Raynauds disease I73.00 Active 311079880 Problem Recurrent major depressive disorder, in full remission F33.42 Active 27453632 Problem Smoking F17.200 Active 99674558 ALLERGIES Substance Reaction Event Type Date Status Penicillin V Potassium Unknown Drug Allergy September, Active Maxalt anaphylaxis Drug Allergy September, Active Cipro stomach upset Drug Allergy September, Active ENCOUNTERS Encounter Location Date Diagnosis [place] [id number] [place] [address] 42706- 9429 Dec, [place] [address] [id number] [place] [address] 86515- 9671 Oct, Well woman exam with routine gynecological exam Z01.419 [facility] [place] [id number] [place] [address] 36312- 0752 Oct, [facility] [place] [address] 68[address]- 5724 September, [place] [address] [id number] [place] [address] 34946- 4205 September, Encounter for test, result unknown Z32.00 [facility] [place] [address] 74423- 9231 September, [place] [address] [address] September, [facility] [id number] [id number] September, Dental examination Z01.20 [place] [address] [place] [address] 53143- 4679 10 Sep, 2017 Well woman exam with routine gynecological exam Z01.419 ; Irregular menses N92.6 and Migraines G43.909 [place] [address] [place] [address] 28430- 7876 Aug, Raynauds disease I73.00 ; Migraines G43.909 ; Recurrent major depressive disorder, in full remission F33.42 ; Anxiety disorder, unspecified F41.9 and Tobacco abuse counseling Z71.6 [place] [address] [place] [address] 89955- 6584 Jul, [place] [address] [place] [address] 94797- 4888 Jul, Recurrent major depressive disorder, in full remission F33.42 and Migraines G43.909 [place] [address] [address] 3[address] Jul, Migraines G43.909 ; Raynauds disease I73.00 ; Mitral valve prolapse I34.1 ; High risk medication use Z79.899 ; Controlled substance agreement signed Z79.899 ; Recurrent major depressive disorder, in full remission F33.42 and Smoking F17.200 [place] [address] [place] [address] 48005- 2318 Jun, Chronic tension-type headache, intractable G44.221 [place] [address], [place] [address] 3825 Jan, Chronic tension-type headache, intractable G44.221 [place] [address] 22279- 5113 Jan, Chronic tension-type headache, intractable G44.221 [place] [address] 55641- 1523 Oct, Bronchitis J40 [place] [address] 99031- 2625 September, Encounter for IUD removal Z30.432 and control counseling Z30.09 [place] [address] 95550- 0079 September, [place] [address] 69214- 5699 Aug, Chronic tension-type headache, intractable G44.221 [place] [address] 24123- 9918 Aug, Chronic tension-type headache, intractable G44.221 ; Migraines G43.909 and Anxiety disorder, unspecified F41.9 [place] [address] 85839- 2928 Aug, Anxiety disorder, unspecified F41.9 and Migraines G43.909 [place] [address] 71856- 6531 Jul, Bronchitis J40 [place] [address] 09221- 4842 Jul, Migraines G43.909 ; Anxiety disorder, unspecified F41.9 and Chronic tension-type headache, intractable G44.221 [place] [address] 45724- 8531 13 Jun, 2016 Hx of migraines Z86.69 [place] [address] 74562- 2596 15 Apr, 2016 Diarrhea, unspecified type R19.7 and Other fatigue R53.83 [place] [address] [place] [address] 5279 09 Mar, 2016 [facility] [place] [id number] [place] [address] 06444- 6217 Feb, Hx of migraines Z86.69 ; Mitral valve prolapse I34.1 and Anxiety disorder, unspecified F41.9 [facility] [place] [id number] [place] [address] 77647- 1942 08 Jan, 2016 Vaginal discharge N89.8 ; Vaginal bleeding N93.9 and IUD ( intrauterine device) in place Z97.5 [facility] [place] [id number] [place] [address] 36993- 6063 Dec, [place] [address] 62905- 7648 Nov, [facility] [place] [address] 30863- 1581 Nov, Yeast infection B37.9 [facility] [place] [id number] [place] [address] 62629- 6285 Nov, Yeast infection B37.9 [facility] [id number] [place] [address] 04345 -4576 Nov, Left wrist pain M25.532 [facility] [place] [address] [id number] [place] [address] 68534- 3082 Nov, [facility] [place] [id number] [place] [address] 00915- 3853 Oct, Hx of migraines Z86.69 [facility] [place] [id number] [place] [address] 05972- 0927 Oct, Migraines G43.909 [facility] [place] [id number] [place] [address] 03703- 7274 September, [facility] [place] [id number] [place] [address] 10822- 3381 September, Migraines G43.909 [place] [id number] [place] [address] 01444- 9170 12 Aug, 2015 Hx of migraines Z86.69 ; Anxiety disorder, unspecified F41.9 ; Migraines G43.909 ; Back pain M54.9 ; Smoking F17.200 and Constipation K59.00 [place] [address] 32206- 7962 Jul, [place] [address] 98495- 9088 Jul, Anxiety disorder, unspecified F41.9 and Depression, unspecified depression type F32.[address] 70810- 5746 Apr, [place] [address] 11203- 1984 Apr, Leg pain M79.606 ; Hx of migraines Z86.69 ; Anxiety disorder , unspecified F41.9 and Migraines G43.909 [place] [address] 55521- 0994 Mar, Migraines G43.909 [place] [address] 89436- 4742 Mar, [place] [address] [address] [id number] [place] [address] 97993- 7530 Mar, General medical exam Z00.00 [place] [address] [id number] [place] [address] 97412- 0500 05 Mar, 2015 [place] [address] 39422- 8891 05 Mar, 2015 General medical exam Z00.00 ; Hx of migraines Z86.69 ; Raynauds disease I73.00 ; Mitral valve prolapse I34.1 ; Anxiety disorder, unspecified F41.9 ; Dietary counseling Z71.3 and Exercise counseling Z71.89 [place] [address] [place] [address]- 7560 May, [facility] [place] [address] [facility] [id number] [address] May, [facility] [place] [address] [facility] [id number] [address]- 0717 May, [facility] [place] [address] [facility] [id number], [place] [address]- 6872 May, IMMUNIZATIONS No Known Immunizations SOCIAL HISTORY Never Assessed REASON FOR VISIT Annual physical (female)-[facility] PLAN OF CARE Activity Details Follow Up 3 Months Reason:irregular menses Pending Test TRICHOMONAS (IN HOUSE) VITAL SIGNS Height 63 in 2017-09-22 Weight 122.1 lbs 2017-09-22 Temperature 99.3 degrees Fahrenheit 2017-09-22 Heart Rate 100 bpm 2017-09-22 Respiratory Rate 20 2017-09-22 BMI 21.63 kg/m2 2017-09-22 Blood pressure systolic 100 mmHg 2017-09-22 Blood pressure diastolic 70 mmHg 2017-09-22 MEDICATIONS Medication Instructions Dosage Frequency Start Date End Date Duration Status Progesterone Active Vol-Care Rx 1 Orally Once a day 1 tablet 24h September, 30 day(s) Active ProAir HFA 108 (90 Base) MCG/ACT Inhalation every 4 hrs 2 puffs as needed 4h Jul, Active Topamax 200 mg Orally Twice a day 1 tablet 12h 90 days Active Topiramate 50 mg Orally Twice a day 1 tablet 12h September, 45 days Active Ondansetron 4 MG Orally 3 times a day if needed for nausea dissolve one tablet Aug, 10 days Active Lexapro 10 mg Orally Once a day 1 tablet 24h 90 days Active Clonidine HCl 0.1 MG Orally 3 times a day 1 tablet 8h 60 days Active RESULTS No Results PROCEDURES Procedure Date Ordered Result Body Site SPECIMEN HANDLING September 22, 2017 No Charge September 22, 2017 TRICHOMONAS ASSAY W/OPTIC September 22, 2017 INSTRUCTIONS MEDICATIONS ADMINISTERED No Known Medications MEDICAL (GENERAL) HISTORY Type Description Date Medical History migraine headaches Medical History sleep apnea Medical History arachnoid cyst Medical History mitral valve prolapse Medical History raynauds syndrome diagnosed 2009 Medical History anxiety and depression Surgical History section x 2 Surgical History angiogram Hospitalization History Softball hit to the throat
--- OUTSIDE RECORDS SUMMARY | 2018-07-25 14:45 | XMS REPORT ---
Author Author LD RODRIGUEZ [facility] Address [address] [place] [address] Care Team Providers Care Bisque Brusher Name Role Phone RODRIGUEZLD Song Unavailable PROBLEMS Type Condition ICD9-CM Code HPP59-IZ Code Onset Dates Condition Status SNOMED Code Problem Mitral valve prolapse I34.1 Active 455305850 Problem Anxiety disorder, unspecified F41.9 Active 219691072 Problem Irregular menses N92.6 Active 994451454 Problem Tobacco abuse counseling Z71.6 Active 970776315 Problem Migraines G43.909 Active 99948595 Problem Raynauds disease I73.00 Active 239430900 Problem Recurrent major depressive disorder, in full remission F33.42 Active 19073281 Problem Smoking F17.200 Active 74897021 ALLERGIES Substance Reaction Event Type Date Status Penicillin V Potassium Unknown Drug Allergy Aug, Active Maxalt anaphylaxis Drug Allergy Aug, Active Cipro stomach upset Drug Allergy Aug, Active ENCOUNTERS Encounter Location Date Diagnosis [place] [address] [id number] [place] [address] 81451- 0261 Dec, [place] [id number] [place] [address] 05013- 8402 Oct, Well woman exam with routine gynecological exam Z01.419 [facility] [id number] [place] [address] 06505- 3352 Oct, [facility] [id number] [place] [address] 43641- 0668 September, [place] [id number] [place] [address] 41418- 0667 September, Encounter for test, result unknown Z32.00 [facility] [address] 40976- 1942 September, [place] [address] [address]- 6477 September, [facility] [id number] [id number] September, Dental examination Z01.20 [place] [address] [place] [address] 22085- 5482 10 Sep, 2017 Well woman exam with routine gynecological exam Z01.419 ; Irregular menses N92.6 and Migraines G43.909 [place] [address] [place] [address] 52976- 4858 Aug, Raynauds disease I73.00 ; Migraines G43.909 ; Recurrent major depressive disorder, in full remission F33.42 ; Anxiety disorder, unspecified F41.9 and Tobacco abuse counseling Z71.6 [place] [id number] [place] [address] 79433- 4805 Jul, [place] [address] [place] [address] 60587- 2651 Jul, Recurrent major depressive disorder, in full remission F33.42 and Migraines G43.909 [place] [address] [place] [address] 05953- 3636 Jul, Migraines G43.909 ; Raynauds disease I73.00 ; Mitral valve prolapse I34.1 ; High risk medication use Z79.899 ; Controlled substance agreement signed Z79.899 ; Recurrent major depressive disorder, in full remission F33.42 and Smoking F17.200 [place] [address] [place] [address] 59391- 7492 Jun, Chronic tension-type headache, intractable G44.221 [place] [address] [place] [address] 60251- 2341 Jan, Chronic tension-type headache, intractable G44.221 [place] [address] [place] [address] 15400- 1171 Jan, Chronic tension-type headache, intractable G44.221 [place] [address] 44169- 1945 Oct, Bronchitis J40 [place] [address] 25588- 6420 15 Sep, 2016 Encounter for IUD removal Z30.432 and control counseling Z30.09 [place] [address] 58046- 4456 11 Sep, 2016 [place] [address] 88350- 9431 Aug, Chronic tension-type headache, intractable G44.221 [place] [address] 49685- 4353 Aug, Chronic tension-type headache, intractable G44.221 ; Migraines G43.909 and Anxiety disorder, unspecified F41.9 [place] [address] 83550- 7813 Aug, Anxiety disorder, unspecified F41.9 and Migraines G43.909 [place] [address] 83525- 2690 Jul, Bronchitis J40 [place] [address] 87445- 7066 Jul, Migraines G43.909 ; Anxiety disorder, unspecified F41.9 and Chronic tension-type headache, intractable G44.221 [place] [address] 89116- 7063 13 Jun, 2016 Hx of migraines Z86.69 [place] [address] 32355- 7893 15 Apr, 2016 Diarrhea, unspecified type R19.7 and Other fatigue R53.83 [place] [address] 76835- 2166 Mar, [facility] [id number] [place] [address] 91294- 7691 07 Feb, 2016 Hx of migraines Z86.69 ; Mitral valve prolapse I34.1 and Anxiety disorder, unspecified F41.9 [facility] [id number] [place] [address] 97673- 7043 08 Jan, 2016 Vaginal discharge N89.8 ; Vaginal bleeding N93.9 and IUD ( intrauterine device) in place Z97.5 [facility] [id number] [place] [address] 06175- 5424 Dec, [facility] [id number] [place] [address] 19923- 8642 Nov, [facility] [id number] [place] [address] 74220- 1656 Nov, Yeast infection B37.9 [facility] [id number] [place] [address] 47189- 4595 Nov, Yeast infection B37.9 [facility] [id number] [place] [address] 17200 -7624 Nov, Left wrist pain M25.532 [facility] [id number] [place] [address] 67813- 8038 Nov, [facility] [id number] [place] [address] 00315- 3995 Oct, Hx of migraines Z86.69 [facility] [id number] [place] [address] 75360- 2516 Oct, Migraines G43.909 [facility] [id number] [place] [address] 95923- 2597 September, [facility] [address] [place] [address] 81959- 8624 September, Migraines G43.909 [facility] [id number] [place] [address] 56511- 0229 Aug, Hx of migraines Z86.69 ; Anxiety disorder, unspecified F41.9 ; Migraines G43.909 ; Back pain M54.9 ; Smoking F17.200 and Constipation K59.00 [place] [id number] [place] [address] 84690- 0660 Jul, [place] [address] 99614- 2278 Jul, Anxiety disorder, unspecified F41.9 and Depression, unspecified depression type F32.[address] 38758- 7867 Apr, [place] [address] 49277- 6958 Apr, Leg pain M79.606 ; Hx of migraines Z86.69 ; Anxiety disorder , unspecified F41.9 and Migraines G43.909 [place] [id number] [place] [address] 87804- 6054 Mar, Migraines G43.909 [place] [address] 08750- 7227 Mar, [place] [id number] [place] [address] 78135- 1435 Mar, General medical exam Z00.00 [place] [id number] [place] [address] 03466- 8414 Mar, [place] [id number] [place] [address] 86028- 7001 Mar, General medical exam Z00.00 ; Hx of migraines Z86.69 ; Raynauds disease I73.00 ; Mitral valve prolapse I34.1 ; Anxiety disorder, unspecified F41.9 ; Dietary counseling Z71.3 and Exercise counseling Z71.89 [place] [address] 77225- 3006 May, [facility] [address] [facility] [id number] [place] [address]- 2256 May, [facility] [address] [facility] [id number] [address]- 2206 May, [facility] [address] [facility] [id number] [place] [address]- 7676 May, IMMUNIZATIONS Vaccine Route Administration Date Status TORADOL (IM) 60 MG/2ML (UP TO 15 MG) IM Intramuscular August 30, 2017 Administered SOCIAL HISTORY Never Assessed REASON FOR VISIT Migraine. XIAO Soares PLAN OF CARE Activity Details Follow Up 3 Months Reason:CHM/Migraines VITAL SIGNS Height 63 in 2017-08-30 Weight 128 lbs 2017-08-30 Temperature 98 degrees Fahrenheit 2017-08-30 Heart Rate 113 bpm 2017-08-30 Respiratory Rate 18 2017-08-30 BMI 22.67 kg/m2 2017-08-30 Blood pressure systolic 118 mmHg 2017-08-30 Blood pressure diastolic 76 mmHg 2017-08-30 MEDICATIONS Medication Instructions Dosage Frequency Start Date End Date Duration Status Progesterone Active Tramadol HCl 50 mg Orally every 6 hrs 1 tablet as needed 6h Aug, 10 days Active Ondansetron 4 MG Orally 3 times a day if needed for nausea dissolve one tablet Aug, 10 days Active Lexapro 10 mg Orally Once a day 1 tablet 24h 90 days Active ProAir HFA 108 (90 Base) MCG/ACT Inhalation every 4 hrs 2 puffs as needed 4h Jul, Active Topamax 200 mg Orally Twice a day 1 tablet 12h 90 days Active Clonidine HCl 0.1 MG Orally 3 times a day 1 tablet 8h 60 days Active RESULTS No Results PROCEDURES Procedure Date Ordered Result Body Site TORADOL (IM) 60 MG/2ML (UP TO 15 MG) August 30, 2017 THER/PROPH/DIAG INJ, SC/IM August 30, 2017 INSTRUCTIONS MEDICATIONS ADMINISTERED No Known Medications MEDICAL (GENERAL) HISTORY Type Description Date Medical History migraine headaches Medical History sleep apnea Medical History arachnoid cyst Medical History mitral valve prolapse Medical History raynauds syndrome diagnosed 2010 Medical History anxiety and depression Surgical History section x 2 Surgical History angiogram Hospitalization History Softball hit to the throat
--- OUTSIDE RECORDS SUMMARY | 2018-07-25 14:45 | XMS REPORT ---
Author Author JENNIFERKENNEDYLD [facility] Address [address] [place] [address] Care Team Providers Care Ergonomics Engineer Name Role Phone RODRIGUEZLD Song Unavailable PROBLEMS Type Condition ICD9-CM Code BGF99-IQ Code Onset Dates Condition Status SNOMED Code Problem Mitral valve prolapse I34.1 Active 693579209 Problem Anxiety disorder, unspecified F41.9 Active 299352704 Problem Irregular menses N92.6 Active 672573969 Problem Tobacco abuse counseling Z71.6 Active 414746431 Problem Migraines G43.909 Active 76928847 Problem Raynauds disease I73.00 Active 073869208 Problem Recurrent major depressive disorder, in full remission F33.42 Active 38078514 Problem Smoking F17.200 Active 19619054 ALLERGIES No Information ENCOUNTERS Encounter Location Date Diagnosis [facility] [address] [address]- [address] Dec, [place] [address] [place] [id number] [place] [address] 65411- 3172 Oct, Well woman exam with routine gynecological exam Z01.419 [facility] [id number] [place] [address] 29668- 9084 Oct, [facility] [id number] [place] [address] 84824- 3375 September, [facility] [address] 51125- 6648 September, Encounter for test, result unknown Z32.00 [facility] [id number] [place] [address] 43598- 6274 September, [facility] [address] 31804- 5415 September, [facility] [address] [place] [address] [address] [id number] [id number] September, Dental examination Z01.20 [place] [address] [place] [address] 52748- 4347 10 Sep, 2017 Well woman exam with routine gynecological exam Z01.419 ; Irregular menses N92.6 and Migraines G43.909 [place] [address] [place] [address] 99107- 9819 17 Aug, 2017 Raynauds disease I73.00 ; Migraines G43.909 ; Recurrent major depressive disorder, in full remission F33.42 ; Anxiety disorder, unspecified F41.9 and Tobacco abuse counseling Z71.6 [place] [address] [place] [address] 17017- 7802 Jul, [place] [address] [place] [id number] [place] [address] 39873- 2851 Jul, Recurrent major depressive disorder, in full remission F33.42 and Migraines G43.909 [place] [address] [place] [id number] [place] [address] 76325- 8405 Jul, Migraines G43.909 ; Raynauds disease I73.00 ; Mitral valve prolapse I34.1 ; High risk medication use Z79.899 ; Controlled substance agreement signed Z79.899 ; Recurrent major depressive disorder, in full remission F33.42 and Smoking F17.200 [place] [address] [place] [address] 59173- 0052 Jun, Chronic tension-type headache, intractable G44.221 [place] [address] [place] [address] 81891- 2279 Jan, Chronic tension-type headache, intractable G44.221 [place] [address] [place] [address] 36507- 7631 Jan, Chronic tension-type headache, intractable G44.221 [place] [address] 36966- 4053 26 Oct, 2016 Bronchitis J40 [place] [address] 65671- 6065 15 Sep, 2016 Encounter for IUD removal Z30.432 and control counseling Z30.09 [place] [address] 70493- 8948 September, [place] [address] 78083- 8535 Aug, Chronic tension-type headache, intractable G44.221 [place] [address] 90192- 9183 Aug, Chronic tension-type headache, intractable G44.221 ; Migraines G43.909 and Anxiety disorder, unspecified F41.9 [place] [address] 24861- 5079 Aug, Anxiety disorder, unspecified F41.9 and Migraines G43.909 [place] [address] 25885- 2040 Jul, Bronchitis J40 [place] [address] 55858- 1832 06 Jul, 2016 Migraines G43.909 ; Anxiety disorder, unspecified F41.9 and Chronic tension-type headache, intractable G44.221 [place] [address] 70310- 3726 13 Jun, 2016 Hx of migraines Z86.69 [place] [address] 86942- 2720 15 Apr, 2016 Diarrhea, unspecified type R19.7 and Other fatigue R53.83 [place] [address] 84247- 8745 09 Mar, 2016 [place] [address] 65408- 9271 Feb, Hx of migraines Z86.69 ; Mitral valve prolapse I34.1 and Anxiety disorder, unspecified F41.9 [facility] [address] 11968- 6973 08 Jan, 2016 Vaginal discharge N89.8 ; Vaginal bleeding N93.9 and IUD ( intrauterine device) in place Z97.5 [place] [address] 01369- 3629 Dec, [facility] [id number] [place] [address] 46213- 6529 Nov, [facility] [address] 31021- 6948 Nov, Yeast infection B37.9 [facility] [id number] [place] [address] 16589- 3405 Nov, Yeast infection B37.9 [facility] [id number] [place] [address] 65164 -5817 Nov, Left wrist pain M25.532 [place] [address] 50872- 0795 Nov, [facility] [address] [id number] [place] [address] 09358- 4782 Oct, Hx of migraines Z86.69 [place] [address] 29348- 0452 Oct, Migraines G43.909 [facility] [id number] [place] [address] 16458- 6948 September, [facility] [address] 09165- 8645 September, Migraines G43.909 [facility] [id number] [place] [address] 56208- 3863 Aug, Hx of migraines Z86.69 ; Anxiety disorder, unspecified F41.9 ; Migraines G43.909 ; Back pain M54.9 ; Smoking F17.200 and Constipation K59.00 [place] [address] 65193- 6648 Jul, [place] [address] 64177- 7316 Jul, Anxiety disorder, unspecified F41.9 and Depression, unspecified depression type F32.9 [place] [address] 50777- 6639 Apr, [place] [address] 00204- 8914 Apr, Leg pain M79.606 ; Hx of migraines Z86.69 ; Anxiety disorder , unspecified F41.9 and Migraines G43.909 [place] [address] 01995- 5038 Mar, Migraines G43.909 [place] [address] 97378- 9670 Mar, [place] [address] 09484- 8224 Mar, General medical exam Z00.00 [place] [address] 00153- 6960 Mar, [place] [address] 66460- 9995 Mar, General medical exam Z00.00 ; Hx of migraines Z86.69 ; Raynauds disease I73.00 ; Mitral valve prolapse I34.1 ; Anxiety disorder, unspecified F41.9 ; Dietary counseling Z71.3 and Exercise counseling Z71.89 [place] [address] [id number] [place] [address] 05307- 8837 May, [place] [address] 47073- 3575 May, [facility] [address] [facility] [id number] [place] [address] May, [facility] [address] [facility] [id number] [place] [address] 1406 May, IMMUNIZATIONS No Known Immunizations SOCIAL HISTORY Never Assessed REASON FOR VISIT UDS PLAN OF CARE VITAL SIGNS MEDICATIONS Unknown [...]
--- OUTSIDE RECORDS SUMMARY | 2018-07-25 14:45 | XMS REPORT ---
Author Author MO CALDERA [facility] eClinicalWorks Address Unknown Phone Unavailable Care Team Providers Care Alumni Relations Manager Name Role Phone MO CALDERA Unavailable Allergies No Known Allergies Problems Problem Type Condition Code Onset Dates Condition Status Problem STATE HEP A (ADULT) DX V05.3 Active Problem VARICELLA DX V05.4 Active Problem DTAP TEST V06.1 Active Problem Smoking F17.200 Active Problem Migraines G43.909 Active Problem Back pain M54.9 Active Problem Mitral valve prolapse I34.1 Active Problem Anxiety disorder, unspecified F41.9 Active Problem Hx of migraines Z86.69 Active Problem Raynauds disease I73.00 Active Medications Medication Code System Code Instructions Start Date End Date Status Dosage Diflucan [facility] [address]-10 100 MG Orally Once a day November 20, 2015November 1 tablet Results No Known Results Summary Purpose eClinicalWorks Submission
--- OUTSIDE RECORDS SUMMARY | 2018-07-25 14:45 | XMS REPORT ---
Author Author JENNIFERKENNEDYLD [facility] Address [address] [place] [address] Care Team Providers Care Cigarette Making Machine Hopper Feeder Name Role Phone RODRIGUEZLD Song Unavailable PROBLEMS Type Condition ICD9-CM Code QZG70-VX Code Onset Dates Condition Status SNOMED Code Problem Mitral valve prolapse I34.1 Active 571994146 Problem Anxiety disorder, unspecified F41.9 Active 487907570 Problem Irregular menses N92.6 Active 014554067 Problem Tobacco abuse counseling Z71.6 Active 536070687 Problem Migraines G43.909 Active 73563186 Problem Raynauds disease I73.00 Active 026183446 Problem Recurrent major depressive disorder, in full remission F33.42 Active 73667617 Problem Smoking F17.200 Active 52949691 ALLERGIES No Information ENCOUNTERS Encounter Location Date Diagnosis [facility] [address] [address]- [address] Dec, [place] [address] [place] [id number] [place] [address] 21524- 8081 Oct, Well woman exam with routine gynecological exam Z01.419 [facility] [address] [place] [id number] [place] [address] 41807- 8267 Oct, [facility] [address] [place] [id number] [place] [address] 39559- 2208 September, [facility] [address] 77717- 7605 September, Encounter for test, result unknown Z32.00 [facility] [address] [place] [id number] [place] [address] 35098- 2038 September, [facility] [address] 50889- 7326 September, [facility] [address] [place] [address] AVE [id number] [id number] September, Dental examination Z01.20 [place] [address] [place] [address] 93286- 3017 10 Sep, 2017 Well woman exam with routine gynecological exam Z01.419 ; Irregular menses N92.6 and Migraines G43.909 [place] [address] [place] [address] 95290- 0382 17 Aug, 2017 Raynauds disease I73.00 ; Migraines G43.909 ; Recurrent major depressive disorder, in full remission F33.42 ; Anxiety disorder, unspecified F41.9 and Tobacco abuse counseling Z71.6 [place] [address] [place] [address] 03109- 7489 Jul, [place] [address] [place] [id number] [place] [address] 26535- 5675 Jul, Recurrent major depressive disorder, in full remission F33.42 and Migraines G43.909 [place] [address] [place] [id number] [place] [address] 55263- 9961 Jul, Migraines G43.909 ; Raynauds disease I73.00 ; Mitral valve prolapse I34.1 ; High risk medication use Z79.899 ; Controlled substance agreement signed Z79.899 ; Recurrent major depressive disorder, in full remission F33.42 and Smoking F17.200 [place] [address] [place] [address] 80203- 0385 Jun, Chronic tension-type headache, intractable G44.221 [place] [address] [place] [address] 06295- 2921 Jan, Chronic tension-type headache, intractable G44.221 [place] [address] [place] [address] 08856- 0595 Jan, Chronic tension-type headache, intractable G44.221 [place] [address] 96230- 6584 26 Oct, 2016 Bronchitis J40 [place] [address] 19084- 9333 15 Sep, 2016 Encounter for IUD removal Z30.432 and control counseling Z30.09 [place] [address] 41840- 3638 September, [place] [address] 74093- 1187 Aug, Chronic tension-type headache, intractable G44.221 [place] [address] 34999- 3467 Aug, Chronic tension-type headache, intractable G44.221 ; Migraines G43.909 and Anxiety disorder, unspecified F41.9 [place] [address] 47371- 0916 Aug, Anxiety disorder, unspecified F41.9 and Migraines G43.909 [place] [address] 81184- 1458 Jul, Bronchitis J40 [place] [address] 32273- 5239 06 Jul, 2016 Migraines G43.909 ; Anxiety disorder, unspecified F41.9 and Chronic tension-type headache, intractable G44.221 [place] [address] 58035- 5082 13 Jun, 2016 Hx of migraines Z86.69 [place] [address] 80435- 6144 15 Apr, 2016 Diarrhea, unspecified type R19.7 and Other fatigue R53.83 [place] [address] 08881- 5098 09 Mar, 2016 [place] [address] 33511- 3820 Feb, Hx of migraines Z86.69 ; Mitral valve prolapse I34.1 and Anxiety disorder, unspecified F41.9 [facility] [address] 76649- 1067 08 Jan, 2016 Vaginal discharge N89.8 ; Vaginal bleeding N93.9 and IUD ( intrauterine device) in place Z97.5 [place] [address] 35618- 6716 Dec, [facility] [address] [place] [id number] [place] [address] 74016- 9129 Nov, [facility] [address] 21295- 7438 Nov, Yeast infection B37.9 [facility] [address] [place] [id number] [place] [address] 33770- 1048 Nov, Yeast infection B37.9 [facility] [address] [place] [id number] [place] [address] 16520 -6332 Nov, Left wrist pain M25.532 [place] [address] 74462- 6198 Nov, [facility] [address] [place] [id number] [place] [address] 16006- 6270 Oct, Hx of migraines Z86.69 [place] [address] 79042- 0308 Oct, Migraines G43.909 [facility] [address] [place] [id number] [place] [address] 68885- 8528 September, [facility] [address] 14751- 3152 September, Migraines G43.909 [facility] [address] [place] [id number] [place] [address] 43042- 8048 Aug, Hx of migraines Z86.69 ; Anxiety disorder, unspecified F41.9 ; Migraines G43.909 ; Back pain M54.9 ; Smoking F17.200 and Constipation K59.00 [place] [address] 36468- 1539 Jul, [place] [address] 97273- 1089 Jul, Anxiety disorder, unspecified F41.9 and Depression, unspecified depression type F32.9 [place] [address] 70418- 3296 Apr, [place] [address] 88809- 0006 Apr, Leg pain M79.606 ; Hx of migraines Z86.69 ; Anxiety disorder , unspecified F41.9 and Migraines G43.909 [place] [address] 39637- 3358 Mar, Migraines G43.909 [place] [address] 55362- 5960 Mar, [place] [address] 49507- 5980 Mar, General medical exam Z00.00 [place] [address] 30608- 1636 Mar, [place] [address] 61747- 2120 Mar, General medical exam Z00.00 ; Hx of migraines Z86.69 ; Raynauds disease I73.00 ; Mitral valve prolapse I34.1 ; Anxiety disorder, unspecified F41.9 ; Dietary counseling Z71.3 and Exercise counseling Z71.89 [place] [address] [place] [id number] [place] [address] 62376- 0194 May, [place] [address] 27052- 5335 May, [facility] [address] [facility] [id number] [place] [address]- 5536 May, [facility] [address] [facility] [id number] [place] [address]- 8433 May, IMMUNIZATIONS No Known Immunizations SOCIAL HISTORY Never Assessed REASON FOR VISIT Repository meds PLAN OF CARE VITAL SIGNS MEDICATIONS Medication Instructions Dosage Frequency Start Date End Date Duration Status Topamax 200 mg Orally Twice a day 1 tablet 12h 90 days Active Lexapro 10 mg Orally Once a day 1 tablet 24h 90 days Active RESULTS No Results PROCEDURES No Known [...]
--- OUTSIDE RECORDS SUMMARY | 2018-07-25 14:45 | XMS REPORT ---
Author Author LD RODRIGUEZ [facility] Address [address] [place] [address] Care Team Providers Care Electrician Underground Name Role Phone RODRIGUEZLD Song Unavailable PROBLEMS Type Condition ICD9-CM Code QKF23-EP Code Onset Dates Condition Status SNOMED Code Problem Mitral valve prolapse I34.1 Active 072665727 Problem Anxiety disorder, unspecified F41.9 Active 490587722 Problem Irregular menses N92.6 Active 047854423 Problem Tobacco abuse counseling Z71.6 Active 900335091 Problem Migraines G43.909 Active 02853364 Problem Raynauds disease I73.00 Active 287130323 Problem Recurrent major depressive disorder, in full remission F33.42 Active 39474188 Problem Smoking F17.200 Active 36294394 ALLERGIES Substance Reaction Event Type Date Status Penicillin V Potassium Unknown Drug Allergy Jul, Active Maxalt anaphylaxis Drug Allergy Jul, Active Cipro stomach upset Drug Allergy Jul, Active ENCOUNTERS Encounter Location Date Diagnosis [place] [id number] [place] [address]- [address] Dec, [place] [id number] [place] [address]11- 4670 Oct, Well woman exam with routine gynecological exam Z01.419 [facility] [id number] [place] [address] 84527- 8144 Oct, [facility] [id number] [place] [address] 88576- 3044 September, [place] [id number] [place] [address] 95573- 9520 September, Encounter for test, result unknown Z32.00 [facility] [address] [address] September, [place] [address] [address] September, [facility] JILLIAN [place] [facility] [id number] [id number] September, Dental examination Z01.20 [place] [address] [place] [address] 80765- 6276 10 Sep, 2017 Well woman exam with routine gynecological exam Z01.419 ; Irregular menses N92.6 and Migraines G43.909 [place] [address] [place] [address] 82655- 6114 Aug, Raynauds disease I73.00 ; Migraines G43.909 ; Recurrent major depressive disorder, in full remission F33.42 ; Anxiety disorder, unspecified F41.9 and Tobacco abuse counseling Z71.6 [place] [id number] [place] [address] 08457- 0989 Jul, [place] [address] [place] [address] 82248- 1431 Jul, Recurrent major depressive disorder, in full remission F33.42 and Migraines G43.909 [place] [address] [place] [address] 06598- 8895 Jul, Migraines G43.909 ; Raynauds disease I73.00 ; Mitral valve prolapse I34.1 ; High risk medication use Z79.899 ; Controlled substance agreement signed Z79.899 ; Recurrent major depressive disorder, in full remission F33.42 and Smoking F17.200 [place] [address] [place] [address] 38291- 0142 Jun, Chronic tension-type headache, intractable G44.221 [place] [address] [place] [address] 37429- 9544 Jan, Chronic tension-type headache, intractable G44.221 [place] [address] [place] [address] [address] Jan, Chronic tension-type headache, intractable G44.221 [place] [address] [address]43- 7710 Oct, Bronchitis J40 [place] [address] 41083- 36[address] 15 Sep, 2016 Encounter for IUD removal Z30.432 and control counseling Z30.09 [place] [address] 9[address]- 38[address] 11 Sep, 2016 [place] [address] 63180- 2[address] Aug, Chronic tension-type headache, intractable G44.221 [place] [address] 20570- 0264 Aug, Chronic tension-type headache, intractable G44.221 ; Migraines G43.909 and Anxiety disorder, unspecified F41.9 [place] [address] 53353- 1602 Aug, Anxiety disorder, unspecified F41.9 and Migraines G43.909 [place] [address] 47073- 3089 Jul, Bronchitis J40 [place] [address] 01491- 2659 Jul, Migraines G43.909 ; Anxiety disorder, unspecified F41.9 and Chronic tension-type headache, intractable G44.221 [place] [address] 30263- 0[address] 13 Jun, 2016 Hx of migraines Z86.69 [place] [address] 82629- 4[address] 15 Apr, 2016 Diarrhea, unspecified type R19.7 and Other fatigue R53.83 [place] [address] 51[address]- [address] Mar, [facility] [id number] [place] [address] 32268- 3132 07 Feb, 2016 Hx of migraines Z86.69 ; Mitral valve prolapse I34.1 and Anxiety disorder, unspecified F41.9 [facility] [id number] [place] [address] 04755- 1893 08 Jan, 2016 Vaginal discharge N89.8 ; Vaginal bleeding N93.9 and IUD ( intrauterine device) in place Z97.5 [facility] [id number] [place] [address] 97539- 7322 Dec, [facility] [id number] [place] [address] 35496- 4051 Nov, [facility] [id number] [place] [address] 49216- 8049 Nov, Yeast infection B37.9 [facility] [id number] [place] [address] 64378- 4285 Nov, Yeast infection B37.9 [facility] [id number] [place] [address] 43511 -6493 Nov, Left wrist pain M25.532 [facility] [id number] [place] [address] 77523- 0078 Nov, [facility] [id number] [place] [address] 00214- 7755 Oct, Hx of migraines Z86.69 [facility] [id number] [place] [address] 87616- 4731 Oct, Migraines G43.909 [facility] [id number] [place] [address] 25585- 2493 September, [facility] [address] [place] [address] 39795- 9152 September, Migraines G43.909 [facility] [id number] [place] [address] 58319- 8969 Aug, Hx of migraines Z86.69 ; Anxiety disorder, unspecified F41.9 ; Migraines G43.909 ; Back pain M54.9 ; Smoking F17.200 and Constipation K59.00 [place] [id number] [place] [address] 74727- 8504 Jul, [place] [address] 56517- [address] Jul, Anxiety disorder, unspecified F41.9 and Depression, unspecified depression type F32.[address] [address]- [address] Apr, [place] [address] 85089- 2199 Apr, Leg pain M79.606 ; Hx of migraines Z86.69 ; Anxiety disorder , unspecified F41.9 and Migraines G43.909 [place] [id number] [place] [address] 09714- 1069 Mar, Migraines G43.909 [place] [address] 78002- 3195 Mar, [place] [id number] [place] [address] 36380- 7462 Mar, General medical exam Z00.00 [place] [id number] [place] [address] 42803- 0903 Mar, [place] [id number] [place] [address] 74661- 5183 Mar, General medical exam Z00.00 ; Hx of migraines Z86.69 ; Raynauds disease I73.00 ; Mitral valve prolapse I34.1 ; Anxiety disorder, unspecified F41.9 ; Dietary counseling Z71.3 and Exercise counseling Z71.89 [place] [address] 44154- 2971 May, [facility] [address] [facility] [id number] [address] May, [facility] [address] [facility] [id number] [address] May, [facility] [address] [facility] [id number] [place] [address] May, IMMUNIZATIONS No Known Immunizations SOCIAL HISTORY Never Assessed REASON FOR VISIT Transition of Care -- keenan carbajal, needing refill on medication PLAN OF CARE Activity Details Follow Up 3 Months, prn Reason:CHM/ Migraines VITAL SIGNS Height 63 in 2017-08-05 Weight 128.5 lbs 2017-08-05 Temperature 98.0 degrees Fahrenheit 2017-08-05 Heart Rate 78 bpm 2017-08-05 Respiratory Rate 20 2017-08-05 BMI 22.76 kg/m2 2017-08-05 Blood pressure systolic 120 mmHg 2017-08-05 Blood pressure diastolic 68 mmHg 2017-08-05 MEDICATIONS Medication Instructions Dosage Frequency Start Date End Date Duration Status Clonidine HCl 0.1 MG Orally 3 times a day 1 tablet 8h 60 days Active Tramadol HCl 50 MG Orally every 6 hrs 1 tablet as needed 6h Active Lexapro 10 mg Orally Once a day 1 tablet 24h 90 days Active Progesterone Active ProAir HFA 108 (90 Base) MCG/ACT Inhalation every 4 hrs 2 puffs as needed 4h Jul, Not-Taking Topamax 200 mg Orally Twice a day 1 tablet 12h 90 days Active RESULTS No Results PROCEDURES [...]
--- OUTSIDE RECORDS SUMMARY | 2018-07-25 14:46 | XMS REPORT ---
Author Author ZACH LUCAS Organization [employer] Address Unknown Phone Unavailable Care Team Providers Care Log Processor Operator Name Role Phone ZACH LUCAS Unavailable Allergies, Adverse Reactions, Alerts Substance Reaction Event Type Penicillin V Potassium Info Not Available Drug Allergy Maxalt anaphylaxis Drug Allergy Cipro stomach upset Drug Allergy Problems Problem Type Condition Code Onset Dates Condition Status Problem STATE HEP A (ADULT) DX V05.3 Active Problem VARICELLA DX V05.4 Active Problem DTAP TEST V06.1 Active Assessment Left wrist pain M25.532 Active Problem Smoking F17.200 Active Problem Migraines G43.909 Active Problem Back pain M54.9 Active Problem Mitral valve prolapse I34.1 Active Problem Anxiety disorder, unspecified F41.9 Active Problem Hx of migraines Z86.69 Active Problem Raynauds disease I73.00 Active Medications Medication Code System Code Instructions Start Date End Date Status Dosage Mirena [facility] [address]-10 20 MCG/24HR Intrauterine not defined Topamax [facility] 64679686147 200 MG Orally Twice a day 1 tablet Qggypnpzvu-ZXXC-Bfcpdauc [facility] [address]-15 50-325-40 MG Orally every 4 hrs November 06, 2015 1 tablet as needed Naproxen [facility] [address]-99 500 MG Orally every 12 hrs November 24, 2015 1 tablet as needed Procedures Procedure Coding System Code Date Office Visit, Est Pt., Level 3 CPT-4 23000 November 24, 2015 Vital Signs Date/Time: November 24, 2015 Cardiac Monitoring Heart Rate 96 bpm Weight 143.8 lbs Height 63 in Blood Pressure Diastolic 82 mmHg Blood Pressure Systolic 118 mmHg Results No Known Results Summary Purpose [employer] Submission
--- OUTSIDE RECORDS SUMMARY | 2018-07-25 14:46 | XMS REPORT ---
Author Author MO CALDERA [facility] eClinical[employer] Address Unknown Phone Unavailable Care Team Providers Care Apparatus Cleaner Name Role Phone MO CALDERA Unavailable Allergies No Known Allergies Problems Problem Type Condition Code Onset Dates Condition Status Problem STATE HEP A (ADULT) DX V05.3 Active Problem VARICELLA DX V05.4 Active Problem DTAP TEST V06.1 Active Assessment Yeast infection B37.9 Active Problem Smoking F17.200 Active Problem Migraines G43.909 Active Problem Back pain M54.9 Active Problem Mitral valve prolapse I34.1 Active Problem Anxiety disorder, unspecified F41.9 Active Problem Hx of migraines Z86.69 Active Problem Raynauds disease I73.00 Active Medications Medication Code System Code Instructions Start Date End Date Status Dosage Diflucan [facility] [address]-31 150 MG Orally one time November 20, 2015 1 tablet Results No Known Results Summary Purpose [employer]ClinicalWorks Submission
--- OUTSIDE RECORDS SUMMARY | 2018-07-25 14:46 | XMS REPORT ---
Author Author MO CALDERA [facility] eClinical[employer] Address Unknown Phone Unavailable Care Team Providers Care Instrumentation Technologist Name Role Phone MO CALDERA Unavailable Allergies, Adverse Reactions, Alerts Substance Reaction [...] Z86.69 Active Problem Raynauds disease I73.00 Active Assessment Back pain M54.9 Active Assessment Migraines G43.909 Active Assessment Constipation K59.00 Active Assessment Anxiety disorder, unspecified F41.9 Active Assessment Smoking F17.200 Active Assessment Hx of migraines Z86.69 Active Medications Medication Code System Code Instructions Start Date End Date Status Dosage Ketorolac Tromethamine [facility] [address]-15 10 mg Orally every 6 hrs AugustAugust 31, 2015 1 tablet as needed Cyclobenzaprine HCl [facility] [address]-80 10 mg Orally Three times a day prn August 26, 2015 September 25, 2015 1 tablet Mirena [facility] [address]-38 20 MCG/24HR Intrauterine not defined Topamax [facility] [address]-39 200 MG Orally Twice a day 1 tablet MiraLax [facility] [address]-34 17 gm/dose Orally Once a day 17 grams mixed in 8 oz of water or juice Ibuprofen [facility] [address]-21 800 MG Orally 2 times a day Mar 20, 2015 1 tablet Wellbutrin XL [facility] [address]-57 150 MG Orally Once a day August 26, 2015 1 tablet in the morning Contrave [facility] [address]-20 8-90 MG Orally Twice a day 2 tablets Procedures Procedure Coding System Code Date Office Visit, Est Pt., Level 4 CPT-4 72581 August 26, 2015 Vital Signs Date/Time: August 26, 2015 Temperature 96.4 F Weight 147.9 lbs Height 63 in BMI 26.20 Index Blood Pressure Diastolic 60 mmHg Blood Pressure Systolic 110 mmHg Cardiac Monitoring Heart Rate 92 bpm Results No Known Results Summary Purpose [employer]ClinicalWorks Submission
--- OUTSIDE RECORDS SUMMARY | 2018-07-25 14:46 | XMS REPORT ---
Author Author MO CALDERA [facility] eClinicalWorks Address Unknown Phone Unavailable Care Team Providers Care Barrel Brander Name Role Phone MO CALDERA Unavailable Allergies [...] Instructions Start Date End Date Status Dosage Tramadol HCl [facility] [address]-37 50 mg Orally every 6 hrs Mar 26, 2016 1 tablet as needed Results No Known Results Summary Purpose [employer]ClinicalWorks Submission
--- OUTSIDE RECORDS SUMMARY | 2018-07-25 14:46 | XMS REPORT ---
Author MO Zavala [facility] eClinicalWorks Address Unknown Phone Unavailable Care Team Providers Care Rn Delivery Name Role Phone MO CALDERA Unavailable Allergies, [...] Active Problem Raynauds disease I73.00 Active Assessment Anxiety disorder, unspecified F41.9 Active Assessment Mitral valve prolapse I34.1 Active Assessment Hx of migraines Z86.69 Active Medications Medication Code System Code Instructions Start Date End Date Status Dosage Mirena [facility] [address]-93 20 MCG/24HR Intrauterine not defined Topamax [facility] [address]-33 200 mg Orally Twice a day 1 tablet Lexapro [facility] [address]-32 10 mg Orally Once a day Feb 20, 2016 1 tablet Ibuprofen [facility] [address]-36 800 MG Orally 2 times a day Mar 20, 2015 1 tablet Procedures Procedure Coding System Code Date TORADOL (IM) 60 MG/2ML (UP TO 15 MG) CPT-4 J1885 Feb 20, 2016 THER/PROPH/DIAG INJ, SC/IM CPT-4 32145 Feb 20, 2016 Office Visit, Est Pt., Level 4 CPT-4 13303 Feb 20, 2016 PHENERGAN 50MG/ML CPT-4 J2550 Feb 20, 2016 Vital Signs Date/Time: Feb 20, 2016 Cardiac Monitoring Heart Rate 92 bpm Weight 142.5 lbs Height 63 in BMI 25.24 Index Blood Pressure Diastolic 76 mmHg Blood Pressure Systolic 131 mmHg Results No Known Results Summary Purpose eClinicalWorks Submission
--- OUTSIDE RECORDS SUMMARY | 2018-07-25 14:46 | XMS REPORT ---
Author Author MO CALDERA Organization [facility] Address [address] [place] [address] Care Team Providers Care Employee Communications Specialist Name Role Phone AYLA CALDERAE Unavailable PROBLEMS Type Condition ICD9-CM Code [id number] Code Onset Dates Condition Status SNOMED Code Problem Anxiety disorder, unspecified F41.9 Active 984090452 Problem Mitral valve prolapse I34.1 Active 890682754 Problem Chronic tension-type headache, intractable G44.221 Active 040208326 Problem Smoking F17.200 Active 28904250 Problem Raynauds disease I73.00 Active 612540741 Problem Hx of migraines Z86.69 Active 423422725 Problem Back pain M54.9 Active 972073912 Problem Migraines G43.909 Active 29225821 ALLERGIES Substance Reaction Event Type Date Status Penicillin V Potassium Unknown Drug Allergy Jul, Active Maxalt anaphylaxis Drug Allergy Jul, Active Cipro stomach upset Drug Allergy Jul, Active SOCIAL HISTORY Never Assessed PLAN OF CARE Activity Details Follow Up 2 Weeks, prn Reason: VITAL SIGNS Height 63 in 2016-08-03 Weight 122.4 lbs 2016-08-03 Temperature 98.0 degrees Fahrenheit 2016-08-03 Heart Rate 80 bpm 2016-08-03 Respiratory Rate 20 2016-08-03 BMI 21.68 kg/m2 2016-08-03 Blood pressure systolic 110 mmHg 2016-08-03 Blood pressure diastolic 76 mmHg 2016-08-03 MEDICATIONS Medication Instructions Dosage Frequency Start Date End Date Duration Status Mirena 20 MCG/24HR Active ProAir HFA 108 (90 Base) MCG/ACT Inhalation every 4 hrs 2 puffs as needed 4h Jul, Active Topamax 200 mg Orally Twice a day 1 tablet 12h Active PredniSONE 10 mg Orally twice a day 1 tablet 12h Jul, Jul, 05 days Active Ibuprofen 800 MG Orally 2 times a day 1 tablet 12h Mar, Active Diflucan 150 MG Orally Once a day 1 tablet 24h Jul, Jul, 1 dose Active Clonidine HCl 0.1 MG Orally twice a day 1 tablet 12h Jul, 30 day(s) Active Lexapro 10 mg Orally Once a day 1 tablet 24h 07 Feb, 2016 Active Tramadol HCl 50 mg Orally every 6 hrs 1 tablet as needed 6h 11 Mar, 2016 Active Doxycycline Hyclate 100 mg Orally every 12 hrs 1 capsule 12h Jul, Jul, 07 days Active RESULTS No Results PROCEDURES No Known procedures IMMUNIZATIONS No Known Immunizations MEDICAL (GENERAL) HISTORY Type Description Date Medical History migraine headaches Medical History sleep apnea Medical History arachnoid cyst Medical History mitral valve prolapse Medical History raynauds syndrome diagnosed 2009 Medical History anxiety and depression Surgical History section x 2 Surgical History angiogram Hospitalization History Softball hit to the throat
--- OUTSIDE RECORDS SUMMARY | 2018-07-25 14:46 | XMS REPORT ---
Author Author MO CALDERA Organization [employer] Address Unknown Phone Unavailable Care Team Providers Care [employer] Police Lieutenant Name Role Phone MO CALDERA Unavailable Allergies [...] Active Problem Raynauds disease I73.00 Active Medications No Known Medications Results No Known Results Summary Purpose eClinicalWorks Submission
--- OUTSIDE RECORDS SUMMARY | 2018-07-25 14:46 | XMS REPORT ---
Author Author MO CALDERA Organization [facility] Address [address] [place] [address] Care Team Providers Care Stump Blower Name Role Phone YUE CALDERANETTE Unavailable PROBLEMS Type Condition ICD9-CM Code ITA36-KL Code Onset Dates Condition Status SNOMED Code Problem Anxiety disorder, unspecified F41.9 Active 290658044 Problem Mitral valve prolapse I34.1 Active 231879087 Problem Chronic tension-type headache, intractable G44.221 Active 061305559 Problem Smoking F17.200 Active 24446671 Problem Raynauds disease I73.00 Active 949818009 Problem Hx of migraines Z86.69 Active 920046776 Problem Back pain M54.9 Active 628909650 Problem Migraines G43.909 Active 72292477 ALLERGIES Substance Reaction Event Type Date Status Penicillin V Potassium Unknown Drug Allergy Jul, Active Maxalt anaphylaxis Drug Allergy Jul, Active Cipro stomach upset Drug Allergy Jul, Active SOCIAL HISTORY Never Assessed PLAN OF CARE Activity Details Follow Up 3 Months Reason: VITAL SIGNS Height 63 in 2016-07-19 Weight 123.2 lbs 2016-07-19 Temperature 98.0 degrees Fahrenheit 2016-07-19 Heart Rate 112 bpm 2016-07-19 Respiratory Rate 18 2016-07-19 BMI 21.82 kg/m2 2016-07-19 Blood pressure systolic 108 mmHg 2016-07-19 Blood pressure diastolic 72 mmHg 2016-07-19 MEDICATIONS Medication Instructions Dosage Frequency Start Date End Date Duration Status Clonidine HCl 0.1 MG Orally twice a day 1 tablet 12h Jul, 30 day(s) Active Lexapro 10 mg Orally Once a day 1 tablet 24h Feb, Active Topamax 200 mg Orally Twice a day 1 tablet 12h Active Mirena 20 MCG/24HR Active Ibuprofen 800 MG Orally 2 times a day 1 tablet 12h Mar, Active Tramadol HCl 50 mg Orally every 6 hrs 1 tablet as needed 6h Mar, Active RESULTS No Results PROCEDURES No Known [...]
--- OUTSIDE RECORDS SUMMARY | 2018-07-25 14:46 | XMS REPORT ---
Author Author SHANE GUILLAUME Organization [facility] Address [address] [place] [address] Care Team Providers Care Speech Language Pathologist Assistant Name Role Phone SHANE GUILLAUME Unavailable PROBLEMS Type Condition ICD9-CM Code [id number] Code Onset Dates Condition Status SNOMED Code Problem Anxiety disorder, unspecified F41.9 Active 414235205 Problem Mitral valve prolapse I34.1 Active 704523549 Problem Chronic tension-type headache, intractable G44.221 Active 679771972 Problem Smoking F17.200 Active 81772536 Problem Raynauds disease I73.00 Active 704428621 Problem Hx of migraines Z86.69 Active 325014004 Problem Back pain M54.9 Active 136029653 Problem Migraines G43.909 Active 14448106 ALLERGIES Substance Reaction Event Type Date Status Penicillin V Potassium Unknown Drug Allergy September, Active Maxalt anaphylaxis Drug Allergy September, Active Cipro stomach upset Drug Allergy September, Active SOCIAL HISTORY Never Assessed PLAN OF CARE Activity Details Follow Up f/u with PCP Huy for smoking cessation Reason: VITAL SIGNS Height 63 in 2016-09-27 Weight 122.3 lbs 2016-09-27 Temperature 98.1 degrees Fahrenheit 2016-09-27 Heart Rate 90 bpm 2016-09-27 Respiratory Rate 18 2016-09-27 BMI 21.66 kg/m2 2016-09-27 Blood pressure systolic 126 mmHg 2016-09-27 Blood pressure diastolic 80 mmHg 2016-09-27 MEDICATIONS Medication Instructions Dosage Frequency Start Date End Date Duration Status ProAir HFA 108 (90 Base) MCG/ACT Inhalation every 4 hrs 2 puffs as needed 4h Jul, Active Mirena 20 MCG/24HR Active Ortho Micronor 0.35 MG Orally Once a day 1 tablet 24h September, 30 day(s) Active Topamax 200 mg Orally Twice a day 1 tablet 12h Active Clonidine HCl 0.1 MG Orally 3 times a day 1 tablet 8h Jul, Active Lexapro 10 mg Orally Once a day 1 tablet 24h 30 Active Nvlpbbrnig-EAMY-Jeaxhkgl 50-325-40 MG Orally PRN 2 at onset then 1 q 4 hours not to exceed 6 in 24 hours Aug, Active Tramadol HCl 50 mg Orally every 6 hrs 1 tablet as needed 6h Mar, Active RESULTS No Results PROCEDURES Procedure Date Ordered Result Body Site REMOVE INTRAUTERINE DEVICE September 27, 2016 IMMUNIZATIONS No Known Immunizations MEDICAL (GENERAL) HISTORY Type Description Date Medical History migraine headaches Medical History sleep apnea Medical History arachnoid cyst Medical History mitral valve prolapse Medical History raynauds syndrome diagnosed 2009 Medical History anxiety and depression Surgical History section x 2 Surgical History angiogram Hospitalization History Softball hit to the throat
--- OUTSIDE RECORDS SUMMARY | 2018-07-25 14:46 | XMS REPORT ---
Author Author MO CALDERA [facility] eClinicalWorks Address Unknown Phone Unavailable Care Team Providers Care Taxation Accountant Name Role Phone MO CALDERA Unavailable Allergies [...] Instructions Start Date End Date Status Dosage Flagyl [facility] [address]-24 500 MG Orally twice daily Jan 09, 2016 Jan 19, 2016 1 tablet Results No Known Results Summary Purpose eClinicalWorks Submission
--- OUTSIDE RECORDS SUMMARY | 2018-07-25 14:46 | XMS REPORT ---
Author Author MO CALDERA Organization [employer] Address Unknown Phone Unavailable Care Team Providers Care Head Of It Name Role Phone MO CALDERA CP Unavailable Allergies, Adverse Reactions, Alerts Substance Reaction Event Type Penicillin V Potassium Info Not Available Drug Allergy Maxalt anaphylaxis Drug Allergy Cipro stomach upset Drug Allergy Problems Problem Type Condition Code Onset Dates Condition Status Problem STATE HEP A (ADULT) DX V05.3 Active Assessment Migraines G43.909 Active Problem Hx of migraines Z86.69 Active Problem Raynauds disease I73.00 Active Problem Migraines G43.909 Active Problem VARICELLA DX V05.4 Active Problem DTAP TEST V06.1 Active Problem Mitral valve prolapse I34.1 Active Problem Anxiety disorder, unspecified F41.9 Active Medications Medication Code System Code Instructions Start Date End Date Status Dosage Ibuprofen [facility] [address]-59 800 MG Orally 2 times a day Mar 20, 2015 1 tablet Mirena [facility] [address]-71 20 MCG/24HR Intrauterine not defined Topamax [facility] [address]-26 200 MG Orally Twice a day 1 tablet Prozac [facility] [address]-01 20 MG Orally Once a day 1 capsule in the morning Ketorolac Tromethamine [facility] [address]-81 10 MG Orally every 6 hrs Apr 04, 2015 Apr 19, 2015 1 tablet as needed Promethazine HCl [facility] [address]-84 25 MG Orally 3 times a day Apr 04, 2015 May 04, 2015 1 tablet as needed Procedures Procedure Coding System Code Date Office Visit, Est Pt., Level 4 CPT-4 55830 Apr 04, 2015 Vital Signs Date/Time: Apr 04, 2015 Temperature 98.1 F Weight 145.1 lbs Height 63 in BMI 25.70 Index Blood Pressure Diastolic 70 mmHg Blood Pressure Systolic 120 mmHg Cardiac Monitoring Heart Rate 80 bpm Results No Known Results Summary Purpose [employer] Submission
--- OUTSIDE RECORDS SUMMARY | 2018-07-25 14:46 | XMS REPORT ---
Author Author ROBERT WEATHERS Organization [facility] Address [address] [place] [address] Care Team Providers Care Environmental Compliance Manager Name Role Phone ROBERT WEATHERS Unavailable PROBLEMS Type Condition ICD9-CM Code [id number] Code Onset Dates Condition Status SNOMED Code Problem Recurrent major depressive disorder, in full remission F33.42 Active 05338787 Problem Smoking F17.200 Active 04212132 Problem Mitral valve prolapse I34.1 Active 070611601 Problem Anxiety disorder, unspecified F41.9 Active 408555024 Problem Migraines G43.909 Active 36972039 Problem Raynauds disease I73.00 Active 164819907 ALLERGIES Substance Reaction Event Type Date Status Penicillin V Potassium Unknown Drug Allergy Oct, Active Maxalt anaphylaxis Drug Allergy Oct, Active Cipro stomach upset Drug Allergy Oct, Active ENCOUNTERS Encounter Location Date Diagnosis [place] [address] [place] [address] Jul, [place] [address] [place] [id number] [place] [address] 8247 Jul, [place] [address] [place] [id number] [place] [address]- 6993 Jul, Migraines G43.909 ; Raynauds disease I73.00 ; Mitral valve prolapse I34.1 ; High risk medication use Z79.899 ; Controlled substance agreement signed Z79.899 ; Recurrent major depressive disorder, in full remission F33.42 and Smoking F17.200 [place] [address] [place] [address]297 Jun, Chronic tension-type headache, intractable G44.221 [place] [address] [place] [id number] [place] [address]- 46[address] Jan, Chronic tension-type headache, intractable G44.221 [facility] [address] [place] [id number] [place] [address]- 2070 Jan, Chronic tension-type headache, intractable G44.221 [facility] [address] [place] [id number] [place] [address] 6[address]25- 4584 Oct, Bronchitis J40 [place] [address] [address] September, Encounter for IUD removal Z30.432 and control counseling Z30.09 [place] [address] [place] [id number] [place] [address] 12[address]- 47[address] September, [place] [address] [address] Aug, Chronic tension-type headache, intractable G44.221 [place] [address] [address]- [address] Aug, Chronic tension-type headache, intractable G44.221 ; Migraines G43.909 and Anxiety disorder, unspecified F41.9 [place] [address] [address]- [address]876 Aug, Anxiety disorder, unspecified F41.9 and Migraines G43.909 [place] [address] [place] [id number] [place] [address] 54580- 5849 Jul, Bronchitis J40 [place] [address] [place] [id number] [place] [address] 66445- 1726 Jul, Migraines G43.909 ; Anxiety disorder, unspecified F41.9 and Chronic tension-type headache, intractable G44.221 [place] [address] [place] [id number] [place] [address] 62552- 1670 13 Jun, 2016 Hx of migraines Z86.69 [place] [address] 6[address]- 2073 15 Apr, 2016 Diarrhea, unspecified type R19.7 and Other fatigue R53.83 [facility] [address] [place] [id number] [place] [address] 96383- 2882 Mar, [place] [address] 25[address]- 9[address] Feb, Hx of migraines Z86.69 ; Mitral valve prolapse I34.1 and Anxiety disorder, unspecified F41.9 [facility] [address] [address]- [address] 08 Jan, 2016 Vaginal discharge N89.8 ; Vaginal bleeding N93.9 and IUD ( intrauterine device) in place Z97.5 [place] [address] [address]- [address]672 Dec, [place] [address] 84[address]- [address] Nov, [facility] [address] [address]- [address]78 Nov, Yeast infection B37.9 [facility] [address] [place] [id number] [place] [address] 07018- 2773 Nov, Yeast infection B37.9 [facility] [address] [place] [id number] [place] [address]38 -8631 Nov, Left wrist pain M25.532 [place] [address] [place] [id number] [place] [address] 19092- 8696 Nov, [facility] [address] [place] [id number] [place] [address] 97472- 1766 Oct, Hx of migraines Z86.69 [place] [address] [address]51- [address] Oct, Migraines G43.909 [place] [address] [place] [id number] [place] [address] 70201- 6108 September, [facility] [address] [address] September, Migraines G43.909 [place] [address] [place] [id number] [place] [address] 83510- 8836 Aug, Hx of migraines Z86.69 ; Anxiety disorder, unspecified F41.9 ; Migraines G43.909 ; Back pain M54.9 ; Smoking F17.200 and Constipation K59.00 [place] [address] 164[address]- 6967 Jul, [place] [address] [address] Jul, Anxiety disorder, unspecified F41.9 and Depression, unspecified depression type F32.9 [place] [address] 48622- [address] Apr, [place] [address] [address]79- [address] Apr, Leg pain M79.606 ; Hx of migraines Z86.69 ; Anxiety disorder , unspecified F41.9 and Migraines G43.909 [place] [address] [address]- [address] Mar, Migraines G43.909 [place] [address] 67[address]- [address] Mar, [place] [address] 90478- 3[address] Mar, General medical exam Z00.00 [place] [address] 62676- 2877 Mar, [address] [address] Mar, General medical exam Z00.00 ; Hx of migraines Z86.69 ; Raynauds disease I73.00 ; Mitral valve prolapse I34.1 ; Anxiety disorder, unspecified F41.9 ; Dietary counseling Z71.3 and Exercise counseling Z71.89 [facility] [address] [facility] [id number] [place] [address] May, [facility] [address] [facility] [id number] [address] May, [facility] [address] [facility] [id number] [address] May, [place] [address] [facility] [id number] [address] May, IMMUNIZATIONS No Known Immunizations SOCIAL HISTORY Never Assessed REASON FOR VISIT cough - Cough for about a week, coughing up green mucus. - Joann MOREIRA PLAN OF CARE VITAL SIGNS Height 63 in 2016-11-08 Weight 122.3 lbs 2016-11-08 Temperature 98.0 degrees Fahrenheit 2016-11-08 Heart Rate 96 bpm 2016-11-08 Respiratory Rate 20 2016-11-08 BMI 21.66 kg/m2 2016-11-08 Blood pressure systolic 112 mmHg 2016-11-08 Blood pressure diastolic 66 mmHg 2016-11-08 MEDICATIONS Medication Instructions Dosage Frequency Start Date End Date Duration Status ProAir HFA 108 (90 Base) MCG/ACT Inhalation every 4 hrs 2 puffs as needed 4h Jul, Active Lexapro 10 mg Orally Once a day 1 tablet 24h 30 Active Promethazine-Codeine 6.25-10 MG/5ML Orally every 6 hrs 5 ml as needed 6h Oct, Active Clonidine HCl 0.1 MG Orally 3 times a day 1 tablet 8h Jul, Active Ortho Micronor 0.35 MG Orally Once a day 1 tablet 24h September, 30 day(s) Active Doxycycline Hyclate 100 mg Orally every 12 hrs 1 capsule 12h Oct, Nov, 10 days Active Ncqrgmaozi-JAUH-Yolqtssy 50-325-40 MG Orally PRN 2 at onset then 1 q 4 hours not to exceed 6 in 24 hours Aug, Active Tramadol HCl 50 mg Orally every 6 hrs 1 tablet as needed 6h Mar, Active Topamax 200 mg Orally Twice a day 1 tablet 12h Active RESULTS No Results PROCEDURES No Known [...]
--- OUTSIDE RECORDS SUMMARY | 2018-07-25 14:47 | XMS REPORT ---
Author Author LD RODRIGUEZ Organization [employer] Address Unknown Phone Unavailable Care Team Providers Care Knifeman Name Role Phone LD RODRIGUEZ CP Unavailable Allergies No Known Allergies Problems Problem Type Condition Code Onset Dates Condition Status Assessment General medical exam Z00.00 Active Problem Raynauds disease I73.00 Active Problem Mitral valve prolapse I34.1 Active Problem Hx of migraines Z86.69 Active Problem DTAP TEST V06.1 Active Problem STATE HEP A (ADULT) DX V05.3 Active Problem Anxiety disorder, unspecified F41.9 Active Problem VARICELLA DX V05.4 Active Medications No Known Medications Procedures Procedure Coding System Code Date COMPLETE CBC W/AUTO DIFF WBC CPT-4 59633 Mar 27, 2015 LIPID PANEL CPT-4 53716 Mar 27, 2015 ASSAY THYROID STIM HORMONE CPT-4 74076 Mar 27, 2015 VENIPUNCT, ROUTINE* CPT-4 55440 Mar 27, 2015 COMPREHEN METABOLIC PANEL CPT-4 47769 Mar 27, 2015 Results Name Result Date Reference Range Unit Abnormality Flag ROUTINE VENIPUNCTURE Summary Purpose eClinicalWorks Submission
--- OUTSIDE RECORDS SUMMARY | 2018-07-25 14:47 | XMS REPORT ---
Author Author MO CALDERA Organization [facility] Address [address] [place] [address] Care Team Providers Care Word Processor Operator Name Role Phone MO CALDERA Unavailable PROBLEMS Type Condition ICD9-CM Code [id number] Code Onset Dates Condition Status SNOMED Code Problem Anxiety disorder, unspecified F41.9 Active 323357555 Problem Mitral valve prolapse I34.1 Active 059818219 Problem Chronic tension-type headache, intractable G44.221 Active 573719203 Problem Smoking F17.200 Active 57608618 Problem Raynauds disease I73.00 Active 390560789 Problem Hx of migraines Z86.69 Active 435656570 Problem Back pain M54.9 Active 320399399 Problem Migraines G43.909 Active 74191278 ALLERGIES No Information SOCIAL HISTORY Never Assessed PLAN OF CARE VITAL SIGNS MEDICATIONS Medication Instructions Dosage Frequency Start Date End Date Duration Status Lexapro 10 mg Orally Once a day 1 tablet 24h Feb, 30 days Active RESULTS No Results PROCEDURES No [...]
--- OUTSIDE RECORDS SUMMARY | 2018-07-25 14:47 | XMS REPORT ---
Author Author SHANE GUILLAUME Organization [facility] Address [address] [place] [address] Care Team Providers Care Console Assembler Name Role Phone SHANE GUILLAUME Unavailable PROBLEMS Type Condition ICD9-CM Code [id number] Code Onset Dates Condition Status SNOMED Code Problem Mitral valve prolapse I34.1 Active 458559939 Problem Anxiety disorder, unspecified F41.9 Active 624056896 Problem Chronic tension-type headache, intractable G44.221 Active 242681167 Problem Back pain M54.9 Active 563352089 Problem Hx of migraines Z86.69 Active 866018303 Problem Raynauds disease I73.00 Active 677035386 Problem Smoking F17.200 Active 47145749 Problem Migraines G43.909 Active 11339108 ALLERGIES Substance Reaction Event Type Date Status Penicillin V Potassium Unknown Drug Allergy Apr, Active Maxalt anaphylaxis Drug Allergy Apr, Active Cipro stomach upset Drug Allergy Apr, Active SOCIAL HISTORY No smoking Hx information available PLAN OF CARE Activity Details Follow Up 4 Weeks with PCP Huy Reason: VITAL SIGNS Height 63 in 2016-04-29 Weight 130.0 lbs 2016-04-29 Temperature 98.5 degrees Fahrenheit 2016-04-29 Heart Rate 80 bpm 2016-04-29 Respiratory Rate 18 2016-04-29 BMI 23.03 kg/m2 2016-04-29 Blood pressure systolic 110 mmHg 2016-04-29 Blood pressure diastolic 68 mmHg 2016-04-29 MEDICATIONS Medication Instructions Dosage Frequency Start Date End Date Duration Status Topamax 200 mg Orally Twice a day 1 tablet 12h 30 Active Mirena 20 MCG/24HR Active Ibuprofen 800 MG Orally 2 times a day 1 tablet 12h 05 Mar, 2015 Active Tramadol HCl 50 mg Orally every 6 hrs 1 tablet as needed 6h Mar, Active Lexapro 10 mg Orally Once a day 1 tablet 24h 07 Feb, 2016 days Active RESULTS Name Result Date Reference Range THYROID ANALYZER 2016-04-29 TSH 0.711 0.450-4.500 CBC 2016-04-29 WBC 6.3 3.4-10.8 RBC 4.04 3.77-5.28 Hemoglobin 12.6 11.1-15.9 Hematocrit 38.0 34.0-46.6 MCV 94 79-97 MCH 31.2 26.6-33.0 MCHC 33.2 31.5-35.7 RDW 12.9 12.3-15.4 Platelets 227 150-379 Neutrophils 64 Lymphs 26 Monocytes 7 Eos 2 Basos 1 Neutrophils (Absolute) 4.1 1.4-7.0 Lymphs (Absolute) 1.6 0.7-3.1 Monocytes(Absolute) 0.4 0.1-0.9 Eos (Absolute) 0.2 0.0-0.4 Baso (Absolute) 0.0 0.0-0.2 Immature Granulocytes 0 Immature Grans (Abs) 0.0 0.0-0.1 ESR/SED RATE 2016-04-29 Sedimentation Rate-Westergren 4 0-32 CRP 2016-04-29 C-Reactive Protein, Quant 0.5 0.0-4.9 CMP 2016-04-29 Glucose, Serum 84 65-99 BUN 8 6-20 Creatinine, Serum 0.81 0.57-1.00 eGFR If NonAfricn Am 96 >59 eGFR If Africn Am 110 >59 BUN/Creatinine Ratio 10 8-20 Sodium, Serum 141 134-144 Potassium, Serum 4.6 3.5-5.2 Chloride, Serum 102 96-106 Carbon Dioxide, Total 25 18-29 Calcium, Serum 9.4 8.7-10.2 Protein, Total, Serum 6.4 6.0-8.5 Albumin, Serum 4.2 3.5-5.5 Globulin, Total 2.2 1.5-4.5 A/G Ratio 1.9 1.1-2.5 Bilirubin, Total 0.3 0.0-1.2 Alkaline Phosphatase, S 38 39-117 AST (SGOT) 17 0-40 ALT (SGPT) 14 0-32 PROCEDURES Procedure Date Ordered Related Diagnosis Body Site ASSAY THYROID STIM HORMONE Apr 29, 2016 COMPLETE CBC W/AUTO DIFF WBC Apr 29, 2016 Office Visit, Est Pt., Level 4 Apr 29, 2016 C-REACTIVE PROTEIN Apr 29, 2016 RBC SED RATE, AUTOMATED Apr 29, 2016 VENIPUNCT, ROUTINE* Apr 29, 2016 COMPREHEN METABOLIC PANEL Apr 29, 2016 IMMUNIZATIONS No Known Immunizations
--- OUTSIDE RECORDS SUMMARY | 2018-07-25 14:47 | XMS REPORT ---
Author Author MO CALDERA [facility] [employer] Address Unknown Phone Unavailable Care Team Providers Care Metal Caster Name Role Phone MO CALDERA Unavailable Allergies No Known Allergies Problems Problem Type Condition Code Onset Dates Condition Status Problem STATE HEP A (ADULT) DX V05.3 Active Problem Hx of migraines Z86.69 Active Problem Raynauds disease I73.00 Active Problem Migraines G43.909 Active Problem VARICELLA DX V05.4 Active Problem DTAP TEST V06.1 Active Problem Mitral valve prolapse I34.1 Active Problem Anxiety disorder, unspecified F41.9 Active Medications No Known Medications Results No Known Results Summary Purpose [employer]ClinicalWorks Submission
--- OUTSIDE RECORDS SUMMARY | 2018-07-25 14:47 | XMS REPORT ---
Author Author LD RODRIGUEZ Organization [employer] Address Unknown Phone Unavailable Care Team Providers Care Professor Of Geography Name Role Phone LD RODRIGUEZ CP Unavailable Allergies No Known Allergies Problems Problem Type Condition Code Onset Dates Condition Status Problem Raynauds disease I73.00 Active Problem Mitral valve prolapse I34.1 Active Problem Hx of migraines Z86.69 Active Problem DTAP TEST V06.1 Active Problem STATE HEP A (ADULT) DX V05.3 Active Problem Anxiety disorder, unspecified F41.9 Active Problem VARICELLA DX V05.4 Active Medications Medication Code System Code Instructions Start Date End Date Status Dosage Aspirin [facility] [address]-95 81 MG Orally Once a day 1 tablet Simvastatin [facility] [address]-95 20 MG Orally Once a day Mar 28, 2015 1 tablet in the evening Results No Known Results Summary Purpose [employer]ClinicalWorks Submission
--- OUTSIDE RECORDS SUMMARY | 2018-07-25 14:47 | XMS REPORT ---
Author Author LD RODRIGUEZ Organization [employer] Address Unknown Phone Unavailable Care Team Providers Care J2Ee Java Developer Name Role Phone LD RODRIGUEZ CP Unavailable Allergies, Adverse Reactions, Alerts Substance Reaction Event Type Penicillin V Potassium Info Not Available Drug Allergy Maxalt anaphylaxis Drug Allergy Cipro stomach upset Drug Allergy Problems Problem Type Condition Code Onset Dates Condition Status Assessment Raynauds disease I73.00 Active Assessment General medical exam Z00.00 Active Assessment Hx of migraines Z86.69 Active Problem Raynauds disease I73.00 Active Problem Mitral valve prolapse I34.1 Active Problem Hx of migraines Z86.69 Active Problem DTAP TEST V06.1 Active Problem STATE HEP A (ADULT) DX V05.3 Active Problem Anxiety disorder, unspecified F41.9 Active Problem VARICELLA DX V05.4 Active Assessment Exercise counseling Z71.89 Active Assessment Dietary counseling Z71.3 Active Assessment Anxiety disorder, unspecified F41.9 Active Assessment Mitral valve prolapse I34.1 Active Medications Medication Code System Code Instructions Start Date End Date Status Dosage Prozac [facility] [address]-47 20 MG Orally Once a day 1 capsule in the morning Mirena [facility] [address]-49 20 MCG/24HR Intrauterine not defined Amitriptyline HCl [facility] [address]-46 25 MG Orally PRN at bedtime Mar 20, 2015 1 tablet Topamax [facility] [address]-92 200 MG Orally Twice a day 1 tablet Ibuprofen [facility] [address]-40 800 MG Orally 2 times a day Mar 20, 2015 1 tablet Procedures Procedure Coding System Code Date Office Visit, New Pt., Level 3 CPT-4 31684 Mar 20, 2015 Vital Signs Date/Time: Mar 20, 2015 Temperature 98.3 F Weight 146.8 lbs Height 63 in BMI 26.00 Index Blood Pressure Diastolic 76 mmHg Blood Pressure Systolic 120 mmHg Cardiac Monitoring Heart Rate 78 bpm Results No Known Results Summary Purpose [employer]ClinicalWorks Submission
--- OUTSIDE RECORDS SUMMARY | 2018-07-25 14:47 | XMS REPORT ---
Author Author MO CALDERA Organization [facility] Address [address] [place] [address] Care Team Providers Care Inspecting And Testing Lead Hand Name Role Phone MO CALDERA Unavailable PROBLEMS Type Condition ICD9-CM Code HHY10-ER Code Onset Dates Condition Status SNOMED Code Problem Anxiety disorder, unspecified F41.9 Active 640607196 Problem Mitral valve prolapse I34.1 Active 612837010 Problem Chronic tension-type headache, intractable G44.221 Active 858519850 Problem Smoking F17.200 Active 35946092 Problem Raynauds disease I73.00 Active 828412162 Problem Hx of migraines Z86.69 Active 086087999 Problem Back pain M54.9 Active 208608786 Problem Migraines G43.909 Active 66092822 ALLERGIES No Information SOCIAL HISTORY Never Assessed PLAN OF CARE VITAL SIGNS MEDICATIONS Unknown [...]
--- OUTSIDE RECORDS SUMMARY | 2018-07-25 14:47 | XMS REPORT ---
Author Author MO CALDERA [facility] [employer] Address Unknown Phone Unavailable Care Team Providers Care Flotation Tender Name Role Phone MO CALDERA CP Unavailable Allergies, Adverse Reactions, Alerts Substance Reaction Event Type Penicillin V Potassium Info Not Available Drug Allergy Maxalt anaphylaxis Drug Allergy Cipro stomach upset Drug Allergy Problems Problem Type Condition Code Onset Dates Condition Status Assessment Hx of migraines Z86.69 Active Problem STATE HEP A (ADULT) DX V05.3 Active Assessment Leg pain M79.606 Active Assessment Migraines G43.909 Active Assessment Anxiety disorder, unspecified F41.9 Active Problem Hx of migraines Z86.69 Active Problem Raynauds disease I73.00 Active Problem Migraines G43.909 Active Problem VARICELLA DX V05.4 Active Problem DTAP TEST V06.1 Active Problem Mitral valve prolapse I34.1 Active Problem Anxiety disorder, unspecified F41.9 Active Medications Medication Code System Code Instructions Start Date End Date Status Dosage Mirena [facility] [address]-80 20 MCG/24HR Intrauterine not defined Ibuprofen [facility] [address]-88 800 MG Orally 2 times a day Mar 20, 2015 1 tablet Prozac [facility] [address]-12 20 MG Orally Once a day 1 capsule in the morning Promethazine HCl [facility] [address]-82 25 MG Orally 3 times a day Apr 04, 2015 May 04, 2015 1 tablet as needed Amitriptyline HCl [facility] [address]-80 25 MG Orally PRN at bedtime Mar 20, 2015 1 tablet Inderal LA [facility] [address]-90 80 MG Orally Once a day Apr 18, 2015 1 capsule Aspirin [facility] [address]-74 325 MG Orally Once a day Apr 18, 2015 Apr 28, 2015 1 tablet Ketorolac Tromethamine [facility] [address]-93 10 MG Orally every 6 hrs Apr 04, 2015 Apr 19, 2015 1 tablet as needed Topamax [facility] [address]-45 200 MG Orally Twice a day 1 tablet Procedures Procedure Coding System Code Date Office Visit, Est Pt., Level 3 CPT-4 92846 Apr 18, 2015 Vital Signs Date/Time: Apr 18, 2015 Temperature 98.3 F Weight 147.6 lbs Height 63 in BMI 26.14 Index Blood Pressure Diastolic 74 mmHg Blood Pressure Systolic 122 mmHg Cardiac Monitoring Heart Rate 96 bpm Results No Known Results Summary Purpose eClinicalWorks Submission
--- OUTSIDE RECORDS SUMMARY | 2018-07-25 14:47 | XMS REPORT ---
Author Author MO CALDERA [facility] [employer] Address Unknown Phone Unavailable Care Team Providers Care Data Modeling Specialist Name Role Phone MO CALDERA Unavailable Allergies [...] Start Date End Date Status Dosage Diflucan [facility] [address]-53 150 MG Orally one time November 20, 2015 1 tablet Results No Known Results Summary Purpose [employer]ClinicalWorks Submission
--- OUTSIDE RECORDS SUMMARY | 2018-07-25 14:47 | XMS REPORT ---
Author Author LD RODRIGUEZ Organization [employer] Address Unknown Phone Unavailable Care Team Providers Care Ground Wood Supervisor Name Role Phone LD RODRIGUEZ CP Unavailable [...] DX V05.4 Active Medications No Known Medications Results No Known Results Summary Purpose [employer]ClinicalWorks Submission
--- OUTSIDE RECORDS SUMMARY | 2018-07-25 14:47 | XMS REPORT | Continuity of Care Document ---
Author Author [facility] Address Unknown Phone Unavailable Allergies Active Description Code Type Severity Reaction Onset Reported/Identified Relationship to Patient Clinical Status Yes PENICILLINS MODERATE OTHER Yes Penicillins [id number] Drug Allergy Unknown N/A 09/24/2015 Medications Medication Packaging Start Date Stop Date Route Dosage Sig PROCHLORPERAZINE VIAL INJ 10 MG/2CC (COMPAZINE VIAL) MG 12/06/2017 12/06/2017 ONCE&1230 FENTANYL INJ 100 MCG/2CC VIAL MCG 12/06/2017 12/06/2017 ONCE&1230 DEXAMETHASONE VIAL INJ 10 MG/CC (DECADRON VIAL) MG 12/06/2017 12/06/2017 ONCE&1230 LACTATED RINGERS 500CC IV BAG INJ ml 12/06/2017 12/13/2017 CONTINUOUSEVERY 0 Hour KETOROLAC VIAL INJ 15 MG/CC (TORADOL VIAL) MG 12/06/2017 12/06/2017 ONCE&1300 Problems Date Dx Coded Attending Type Code Diagnosis Diagnosed By 05/18/2013 TOBI GALINDO DO V05.3 HEP B (ADULT) DX 05/18/2013 TOBI GALINDO DO V05.4 VARICELLA DX 05/18/2013 TOBI GALINDO DO V06.1 TDAP DX 09/24/2015 MAIKEL RALPH Ot F17.210 NICOTINE DEPENDENCE, CIGARETTES, UNCOMPL 09/24/2015 MAIKEL RALPH Ot G43.909 MIGRAINE, UNSP, NOT INTRACTABLE, WITHOUT 09/25/2015 MAIKEL RALPH Ot F17.210 NICOTINE DEPENDENCE, CIGARETTES, UNCOMPL 09/25/2015 MAIKEL RALPH Ot G43.909 MIGRAINE, UNSP, NOT INTRACTABLE, WITHOUT 12/06/2017 Renan Jones 346.90 MIGRAINE, UNSPECIFIED, WITHOUT MENTION OF INTRACTABLE MIGRAINE, WITHOUT MENTION OF STATUS MIGRAINOSUS 12/06/2017 Howayek, Renan A G43.909 MIGRAINE, UNSP, NOT INTRACTABLE, WITHOUT STATUS MIGRAINOSUS Procedures There is no data. Results Test Result Range Genital Culture, Routine - 01/22/16 11:01 Genital Culture, Routine Note CBC With Differential/Platelet - 04/29/16 10:17 WBC 6.3 x10E3/uL 3.4-10.8 RBC 4.04 x10E6/uL 3.77-5.28 Hemoglobin 12.6 g/dL 11.1-15.9 Hematocrit 38.0 % 34.0-46.6 MCV 94 fL 79-97 MCH 31.2 pg 26.6-33.0 MCHC 33.2 g/dL 31.5-35.7 RDW 12.9 % 12.3-15.4 Platelets 227 x10E3/uL 150-379 Neutrophils 64 % Lymphs 26 % Monocytes 7 % Eos 2 % Basos 1 % Neutrophils (Absolute) 4.1 x10E3/uL 1.4-7.0 Lymphs (Absolute) 1.6 x10E3/uL 0.7-3.1 Monocytes(Absolute) 0.4 x10E3/uL 0.1-0.9 Eos (Absolute) 0.2 x10E3/uL 0.0-0.4 Baso (Absolute) 0.0 x10E3/uL 0.0-0.2 Immature Granulocytes 0 % Immature Grans (Abs) 0.0 x10E3/uL 0.0-0.1 Comp. Metabolic Panel (14) - 04/29/16 10:17 Glucose, Serum 84 mg/dL 65-99 BUN 8 mg/dL 6-20 Creatinine, Serum 0.81 mg/dL 0.57-1.00 eGFR If NonAfricn Am 96 mL/min/1.73 >59 eGFR If Africn Am 110 mL/min/1.73 >59 BUN/Creatinine Ratio 10 8-20 Sodium, Serum 141 mmol/L 134-144 Potassium, Serum 4.6 mmol/L 3.5-5.2 Chloride, Serum 102 mmol/L 96-106 Carbon Dioxide, Total 25 mmol/L 18-29 Calcium, Serum 9.4 mg/dL 8.7-10.2 Protein, Total, Serum 6.4 g/dL 6.0-8.5 Albumin, Serum 4.2 g/dL 3.5-5.5 Globulin, Total 2.2 g/dL 1.5-4.5 A/G Ratio 1.9 1.1-2.5 Bilirubin, Total 0.3 mg/dL 0.0-1.2 Alkaline Phosphatase, S 38 IU/L 39-117 AST (SGOT) 17 IU/L 0-40 ALT (SGPT) 14 IU/L 0-32 Thyroid [place] Profile - 04/29/16 10:17 TSH 0.711 uIU/mL 0.450-4.500 Sedimentation Rate-W[place]gren - 04/29/16 10:17 Sedimentation Rate-Westergren 4 mm/hr 0-32 C-Reactive Protein, Quant - 04/29/16 10:17 C-Reactive Protein, Quant 0.5 mg/L 0.0-4.9 SUREPATH PAP AND HPV mRNA E6/E7 - 09/22/17 16:10 CLINICAL INFORMATION: NRG LMP: NRG PREV. PAP: NRG PREV. BX: NRG SOURCE: Cervix NRG STATEMENT OF ADEQUACY: NRG INTERPRETATION/RESULT: NRG VICE PRESIDENT FOR INSTRUCTION: NRG HPV mRNA E6/E7, SUREPATH VIAL Not Detected NOT DETECTED COMMENT NRG TEST, SERUM (QUAL) - 10/12/17 16:00 HCG, TOTAL, QL NEGATIVE See Note: TSH - 01/24/18 10:00 TSH 3.11 mIU/L NRG LH - 04/20/18 11:41 LH 15.5 mIU/mL NRG Encounters ACCT No. Visit Date/Time Discharge Status Pt. Type Provider Facility Loc./Unit Complaint [id number] 05/18/2013 16:26:00 05/18/2013 23:59:59 CLS Outpatient TOBI GALINDO DO [id number] 06/21/2018 09:40:00 06/21/2018 23:59:59 CLS Outpatient [facility] [id number] 04/20/2018 10:40:00 Document Registration [id number] 01/24/2018 09:00:00 Document Registration [id number] 10/12/2017 15:40:00 Document Registration [id number] 09/22/2017 14:20:00 Document Registration [id number] 01/25/2016 13:05:00 Document Registration [id number] 12/06/2017 12:08:00 12/06/2017 13:25:00 DIS Outpatient Renan Jones [id number] 12/06/2017 12:32:21 Document Registration [id number] 04/30/2016 10:05:00 Document Registration [id number] 09/24/2015 20:21:00 09/24/2015 22:45:00 DIS Emergency MAIKEL RALPH [facility] ER
[2018-07-25] MEDS ORDERED: fentaNYL INJECTION 100 MCG/2 ML AMP IVP STA ×2 (15:50→17:38)
[2018-07-25] MEDS ORDERED: NS IV 1000 ML 1,000 ML IV STA (15:50)
[2018-07-25] MEDS ORDERED: KETOROLAC 30 MG/ML VIAL IVP STA (15:50)
[2018-07-25 15:57] LABS: BASOPHILS % (AUTO) 0 % (0-10); EOSINOPHILS % (AUTO) 0 % (0-10); HEMATOCRIT 39 % (35-52); HEMOGLOBIN 13.6 G/DL (11.5-16.0); LYMPHOCYTES # (AUTO) 2.7 X 10^3 (1.0-4.0); LYMPHOCYTES % (AUTO) 26 % (12-44); MEAN CORPUSCULAR HEMOGLOBIN 32 PG (25-34); MEAN CORPUSCULAR HGB CONC 35 G/DL (32-36); MEAN CORPUSCULAR VOLUME 93 FL (80-99); MEAN PLATELET VOLUME 10.5 FL (7.4-10.4); MONOCYTES # (AUTO) 0.9 X 10^3 (0.0-1.0); MONOCYTES % (AUTO) 9 % (0-12); NEUTROPHILS # (AUTO) 6.6 X 10^3 (1.8-7.8); NEUTROPHILS % (AUTO) 65 % (42-75); PLATELET COUNT 226 10^3/uL (130-400); RED CELL DISTRIBUTION WIDTH 12.4 % (10.0-14.5); WHITE BLOOD COUNT 10.2 10^3/uL (4.3-11.0)
[2018-07-25] MEDS ORDERED: ANTACID SUSP 30 ML UDC (MYLANTA) PO ONE (16:00)
[2018-07-25] MEDS ORDERED: LIDOCAINE 2% VISCOUS 15 ML UDC PO ONE (16:00)
--- NOTE | 2018-07-25 16:00 | ED Abdominal Pain ---
General Chief Complaint: Abdominal/GI Problems Stated Complaint: ABD PAIN;NAUSEA;BLOATING Nursing Triage Note: pt arrived pov from [facility], patient has severe abd pain 10/23 et is doubled over, Pt is bloated and can't button pants, pt is nauseated. Pt has known hiatal hernia. Pt states she feels a lot of pressure Sepsis Screen: No Definite Risk Source of Information: Patient Exam Limitations: No Limitations History of Present Illness Date Seen by Provider: Jul 25, 2018 Time Seen by Provider: 15:43 Initial Comments Here with report of significant central abdominal pain that started out this morning after going to the gym. States that she feels bloated and it's very uncomfortable. Does have history of hiatal hernia. Seen at the clinic and had abdominal x-ray which did not show anything per her. She was sent here for further evaluation for this abdominal pain. Denies vomiting. Does report diarrhea. No report of blood in stool. Timing/Duration: 4-6 Hours Severity/Quality: Moderate, Severe, Cramping Location: Epigastric Radiation: No Radiation Activities at Onset: None Modifying Factors: Worsens With Movement; Improves With Resting, Improves With Other (resting bent over and face down) Associated Symptoms: No Back Pain, No Chest Pain, No Fever/Chills; Heartburn, Nausea/Vomiting; No Shortness of Air, No Weakness Allergies and Home Medications Allergies Coded Allergies: Penicillins (Verified Allergy, Unknown, 09/24/15) Home Medications Bupropion HCl 150 Mg Tab.er.24h, 150 MG PO DAILY, (Reported) Butalbit/Acetamin/Caff/Codeine 1 Each Capsule, 1 EACH PO Q6H PRN for HEADACHE Prescribed by: MAIKEL JONES on 09/24/152230 Cyclobenzaprine HCl 10 Mg Tablet, 10 MG PO TID, (Reported) Topiramate 200 Mg Tablet, 200 MG PO BID, (Reported) Patient Home Medication List Home Medication List Reviewed: Yes Review of Systems Review of Systems Constitutional: see HPI; No chills, No fever EENTM: No Symptoms Reported Respiratory: No Symptoms Reported Cardiovascular: No Symptoms Reported Gastrointestinal: See HPI Genitourinary: Denies Frequency, Denies Pain Musculoskeletal: no symptoms reported Skin: no symptoms reported Psychiatric/Neurological: No Symptoms Reported All Other Systems Reviewed Negative Unless Noted: Yes Past Eqweqjh-Yhhqdb-Nyuwhk Hx Past Med/Social Hx: Reviewed Nursing Past Med/Soc Hx Patient Social History Recent Foreign Travel: No Contact w/Someone Who Travel: No Recent Infectious Disease Expo: No Past Medical History Surgeries: Yes Section Respiratory: No Cardiac: No Neurological: Yes Headaches /Migraines Last Menstrual Period: Jul 08, 2018 Hx : 2 Hx Para: 2 Reproductive Disorders: No Gastrointestinal: Yes Hiatal Hernia Musculoskeletal: No Endocrine: No Depression Adverse Reaction/Blood Tranf: No Family Medical History Reviewed Nursing Family Hx No Pertinent Family Hx Physical Exam Vital Signs Vital Signs - First Documented 07/25/18 15:03 Temp 99.4 Pulse 107 Resp 20 O2 Delivery Room Air Capillary Refill : Less Than 3 Seconds Height/Weight/BMI Height: 5'3.00" Weight: 135lbs. oz. [id number]; BMI Method:Stated General Appearance: WD/WN, mild distress HEENT: PERRL/EOMI, pharynx normal Neck: full range of motion, supple Respiratory: lungs clear, normal breath sounds Cardiovascular: no murmur, tachycardia Gastrointestinal: soft, distended; No guarding, No rebound; tenderness ( epigastric) Extremities: non-tender, normal inspection Back: normal inspection, no CVA tenderness, no vertebral tenderness Neurologic/Psychiatric: alert, oriented x 3 Skin: normal color, warm/dry Progress/Results/Core Measures Results/Orders Lab Results Laboratory Tests Test 07/25/18 15:40 07/25/18 15:47 Range/Units Urine Color YELLOW Urine Clarity SL CLOUDY Urine pH 6 5-9 Urine Specific [place] 1.010 L 1.016-1.022 Urine Protein NEGATIVE NEGATIVE Urine Glucose (UA) NEGATIVE NEGATIVE Urine Ketones 1+ H NEGATIVE Urine Nitrite NEGATIVE NEGATIVE Urine Bilirubin NEGATIVE NEGATIVE Urine Urobilinogen NORMAL NORMAL MG/DL Urine Leukocyte Esterase NEGATIVE NEGATIVE Urine RBC (Auto) NEGATIVE NEGATIVE Urine RBC NONE /HPF Urine WBC RARE /HPF Urine Squamous Epithelial Cells 0-2 /HPF Urine Crystals NONE /LPF Urine Bacteria TRACE /HPF Urine Casts NONE /LPF Urine Mucus NEGATIVE /LPF Urine Culture Indicated NO White Blood Count 10.2 4.3-11.0 10^3/uL Red Blood Count 4.25 L 4.35-5.85 10^6/uL Hemoglobin 13.6 11.5-16.0 G/DL Hematocrit 39 35-52 % Mean Corpuscular Volume 93 80-99 FL Mean Corpuscular Hemoglobin 32 25-34 PG Mean Corpuscular Hemoglobin Concent 35 32-36 G/DL Red Cell Distribution Width 12.4 10.0-14.5 % Platelet Count 226 130-400 10^3/uL Mean Platelet Volume 10.5 H 7.4-10.4 FL Neutrophils (%) (Auto) 65 42-75 % Lymphocytes (%) (Auto) 26 12-44 % Monocytes (%) (Auto) 9 0-12 % Eosinophils (%) (Auto) 0 0-10 % Basophils (%) (Auto) 0 0-10 % Neutrophils # (Auto) 6.6 1.8-7.8 X 10^3 Lymphocytes # (Auto) 2.7 1.0-4.0 X 10^3 Monocytes # (Auto) 0.9 0.0-1.0 X 10^3 Eosinophils # (Auto) 0.0 0.0-0.3 10^3/uL Basophils # (Auto) 0.0 0.0-0.1 10^3/uL Sodium Level 140 135-145 MMOL/L Potassium Level 3.9 3.6-5.0 MMOL/L Chloride Level 103 98-107 MMOL/L Carbon Dioxide Level 25 21-32 MMOL/L Anion Gap 12 5-14 MMOL/L Blood Urea Nitrogen 17 7-18 MG/DL Creatinine 0.85 0.60-1.30 MG/DL Estimat Glomerular Filtration Rate > 60 BUN/Creatinine Ratio 20 Glucose Level 81 70-105 MG/DL Calcium Level 10.1 8.5-10.1 MG/DL Corrected Calcium 8.5-10.1 MG/DL Total Bilirubin 0.4 0.1-1.0 MG/DL Aspartate Amino Transf (AST/SGOT) 46 H 5-34 U/L Alanine Aminotransferase (ALT/SGPT) 34 0-55 U/L Alkaline Phosphatase 55 40-136 U/L Total Protein 7.8 6.4-8.2 GM/DL Albumin 4.8 H 3.2-4.5 GM/DL Amylase Level 57 25-125 U/L Lipase 14 8-78 U/L My Orders Orders - KRISTEN MELENDREZ MD Amylase (07/25/18 15:50) Cbc With Automated Diff (07/25/18 15:50) Comprehensive Metabolic Panel (07/25/18 15:50) Lipase (07/25/18 15:50) Ua Culture If Indicated (07/25/18 15:50) Lidocaine 2% Viscous 15 Ml (Xylocaine Vi (07/25/18 16:00) Ns Iv 1000 Ml (Sodium Chloride 0.9%) (07/25/18 15:50) Antacid Suspension (Mylanta Suspension (07/25/18 16:00) Saline Lock/Iv-Start (07/25/18 15:50) Fentanyl Injection (Sublimaze Injection (07/25/18 15:50) Ketorolac Injection (Toradol Injection) (07/25/18 15:50) Urine Bedside (07/25/18 15:50) Ct Abdomen/Pelvis W (07/25/18 16:41) Iohexol Injection (Omnipaque 350 Mg/Ml 1 (07/25/18 17:00) Received Contrast (Contrast Received) (07/25/18 17:00) Ns (Ivpb) (Sodium Chloride 0.9% Ivpb Bag (07/25/18 17:00) Famotidine Injection (Pepcid Injection) (07/25/18 17:38) Fentanyl Injection (Sublimaze Injection (07/25/18 17:38) Pantoprazole Injection (Protonix Injecti (07/25/18 17:45) Sucralfate Tablet (Carafate Tablet) (07/25/18 18:00) Morphine Injection (Morphine Injection (07/25/18 19:00) Nicotine Patch (Nicoderm Patch) (07/25/18 19:15) Medications Given in ED Current Medications Medications Dose Ordered Sig/Nupur Route Start Time Stop Time Status Last Admin Dose Admin Al Hydrox/Mg Hydrox/Simethicone 30 ml ONCE ONCE PO 07/25/18 16:00 07/25/18 16:01 DC 07/25/18 16:06 30 ML Iohexol 100 ml ONCE ONCE IV 07/25/18 17:00 07/25/18 17:01 DC 07/25/18 16:59 100 ML Lidocaine HCl 15 ml ONCE ONCE PO 07/25/18 16:00 07/25/18 16:01 DC 07/25/18 16:06 15 ML Pantoprazole 40 mg ONCE ONCE IV 07/25/18 17:45 07/25/18 17:46 DC 07/25/18 17:47 40 MG Sodium Chloride 100 ml ONCE ONCE IV 07/25/18 17:00 07/25/18 17:01 DC 07/25/18 16:59 80 ML Sucralfate 1 gm ONCE ONCE PO 07/25/18 18:00 07/25/18 18:01 DC 07/25/18 18:00 1 GM Vital Signs/I&O 07/25/18 15:03 Temp 99.4 Pulse 107 Resp 20 B/P (MAP) O2 Delivery Room Air Progress Progress Note : Progress Note Seen and evaluated. IV, labs, UA, UCG, normal saline 1 L bolus, fentanyl 50 g IV, Toradol 30 mg IV ordered. Anticipate CT abdomen and pelvis versus gallbladder ultrasound. Monitor patient. 1754: Repeat fentanyl 75 g IV, Pepcid 20 mg IV ordered and Protonix 40 mg IV ordered. We will do Carafate 1 g by mouth. Monitor patient. 1829: I have discussed the case with Dr. Naranjo. Patient still has quite a bit of pain. We're in discussion with her right now about disposition. She is talking to her family. She is a little bit more comfortable after the fentanyl but is still very concerned about the bloating. Monitor patient. 05/24/03: I have discussed the case with Dr. Naranjo. She is still in moderate amount of pain. Morphine 5 mg IV. Orders written. She will get ultrasound in the morning and likely scope tomorrow. NicoDerm 21 mg patch ordered. Remains nothing by mouth. Patient and family agree with plan. Admit observation status. Diagnostic Imaging Diagonstic Imaging: CT Plain Films/CT/US/NM/MRI: abdomen, pelvis Comments [facility] [place], [place] NAME: [facility] REC#: [id number] PT STATUS: REG ER : 1980 PHYSICIAN: KRISTEN MELENDREZ MD ADMIT DATE: 07/25/18/ER Draft Date of Exam:07/25/18 CT ABDOMEN/PELVIS W EXAMINATION: CT abdomen and pelvis with contrast, 07/25/2018. TECHNIQUE: Multiple contiguous axial images were obtained through the abdomen and pelvis after administration of intravenous contrast. INDICATION: Abdominal pain in the upper abdomen, nausea and diarrhea for 8 hours. FINDINGS: There is a large cystic lesion within the left aspect of the pelvis, likely ovarian in nature. This measures approximately 2.9 cm in size with adjacent low-density region, possibly the ovary itself. Prominence of the right ovarian tissue also noted. Minimal free fluid in the pelvis is seen, possibly physiologic or due to recently ruptured cyst. The remaining abdomen and pelvis demonstrate normal appearance of the liver, gallbladder, kidneys, spleen, and pancreas as well as the adrenal glands. No free fluid or air is seen in the abdomen. Visualized portions of the appendix are unremarkable. The entire appendix, however, is not well seen. Visualized lung bases are unremarkable. The osseous structures are unremarkable for acute abnormality. Scoliotic deformity of the spine is noted. IMPRESSION: 1. Cystic lesion in the left adnexa, likely ovarian with a small amount of free fluid in the pelvis; see above description. If clinically warranted, pelvic sonography could better characterize this process. Otherwise, a followup in 2-3 menstrual cycles is recommended to assure resolution. 2. Other findings as above. Dictated on workstation # [id number] Dict: 07/25/18 1711 Trans: 07/25/18 1727 [id number] Interpreted by: MERLYN WESTON MD Electronically signed by: Reviewed: Reviewed by Me Departure Communication (Admissions) Time/Spoke to Admitting Phy: 18:59 Impression Primary Impression: Epigastric abdominal pain Disposition: ADMITTED INPATIENT Condition: Stable Admissions Decision to Admit Reason: Admit from ER (General) Decision to Admit/Date: Jul 25, 2018 Time/Decision to Admit Time: 18:59 Departure-Patient Inst. Referrals: TREV BOLDEN MD (PCP/Family) Primary Care Physician KRISTEN MELENDREZ MD Jul 25, 2018 16:00
[2018-07-25 16:18] LABS: BILIRUBIN,URINE NEGATIVE (NEGATIVE); GLUCOSE, URINE (UA) NEGATIVE (NEGATIVE); KETONES,URINE 1+ (NEGATIVE); LEUKOCYTE ESTERASE ,URINE NEGATIVE (NEGATIVE); NITRITE,URINE NEGATIVE (NEGATIVE); PH,URINE 6 (5-9); PROTEIN,URINE NEGATIVE (NEGATIVE); UROBILINOGEN,URINE NORMAL (NORMAL)
[2018-07-25 16:21] LABS: BACTERIA,URINE TRACE /HPF; CLARITY,URINE SL CLOUDY; COLOR,URINE YELLOW; SQUAMOUS EPITHELIAL CELL,UR 0-2 /HPF; WBC,URINE RARE /HPF
[2018-07-25 16:27] LABS: ALANINE AMINOTRANSFERASE 34 U/L (0-55); ALBUMIN 4.8 GM/DL (3.2-4.5); ALKALINE PHOSPHATASE 55 U/L (40-136); AMYLASE 57 U/L (25-125); BILIRUBIN,TOTAL 0.4 MG/DL (0.1-1.0); BUN/CREATININE RATIO 20; CALCIUM 10.1 MG/DL (8.5-10.1); CARBON DIOXIDE 25 MMOL/L (21-32); CHLORIDE 103 MMOL/L (98-107); CREATININE SERUM 0.85 MG/DL (0.60-1.30); GFR ESTIMATED > 60; GLUCOSE 81 MG/DL (70-105); LIPASE 14 U/L (8-78); POTASSIUM 3.9 MMOL/L (3.6-5.0); SODIUM 140 MMOL/L (135-145); TOTAL PROTEIN 7.8 GM/DL (6.4-8.2)
[2018-07-25] MEDS ORDERED: IOHEXOL 350 MG/ML 100 ML (OMNIPAQUE 350) VIAL IV ONE (17:00)
[2018-07-25] MEDS ORDERED: HOLD METFORMIN - RECEIVED CONTRAST 20 ML VIAL IV SCH (17:00)
[2018-07-25] MEDS ORDERED: NS 100 ML (IVPB) BAG IV ONE (17:00)
--- NOTE | 2018-07-25 17:27 | Diagnostic Imaging Report ---
EXAMINATION: CT abdomen and pelvis with contrast, 07/25/2018. TECHNIQUE: Multiple contiguous axial images were obtained through the abdomen and pelvis after administration of intravenous contrast. INDICATION: Abdominal pain in the upper abdomen, nausea and diarrhea for 8 hours. FINDINGS: There is a large cystic lesion within the left aspect of the pelvis, likely ovarian in nature. This measures approximately 2.9 cm in size with adjacent low-density region, possibly the ovary itself. Prominence of the right ovarian tissue also noted. Minimal free fluid in the pelvis is seen, possibly physiologic or due to recently ruptured cyst. The remaining abdomen and pelvis demonstrate normal appearance of the liver, gallbladder, kidneys, spleen, and pancreas as well as the adrenal glands. No free fluid or air is seen in the abdomen. Visualized portions of the appendix are unremarkable. The entire appendix, however, is not well seen. Visualized lung bases are unremarkable. The osseous structures are unremarkable for acute abnormality. Scoliotic deformity of the spine is noted. IMPRESSION: 1. Cystic lesion in the left adnexa, likely ovarian with a small amount of free fluid in the pelvis; see above description. If clinically warranted, pelvic sonography could better characterize this process. Otherwise, a followup in 2-3 menstrual cycles is recommended to assure resolution. 2. Other findings as above. Dictated by: Dictated on workstation # [id number]
[2018-07-25] MEDS ORDERED: FAMOTIDINE 20MG/2ML IV (PEPCID) IV STA (17:38)
[2018-07-25] MEDS ORDERED: PANTOPRAZOLE 40 MG (PROTONIX) VIAL IV ONE (17:45)
[2018-07-25] MEDS ORDERED: SUCRALFATE 1 GM (CARAFATE) TAB PO ONE (18:00)
[2018-07-25] MEDS ORDERED: morphine INJ 10 MG/ML 1ML (SYR OR VIAL) IVP ONE (19:00)
[2018-07-25] MEDS ORDERED: NICOTINE 21 MG (NICODERM) PATCH TD ONE (19:15)
[2018-07-25 20:00] VITALS: BP 130/59
[2018-07-25] MEDS ORDERED: NS IV 1000 ML 1,000 ML ONE (20:13)
[2018-07-25] MEDS ORDERED: NS IV 1000 ML 1,000 ML IV SCH (20:15)
[2018-07-25] MEDS ORDERED: morphine INJ 4 MG/ML 1 ML (VIAL/SYRINGE) IV PRN ×2 (21:00→23:00)
[2018-07-25] MEDS ORDERED: ONDANSETRON 4 MG/2 ML (SDV) Z0FRAN ONE (22:59)
[2018-07-25] MEDS: D5 NS 1000 ML IV SOLUTION 1,000 ML IV SCH (23:04)
[2018-07-25] MEDS: ONDANSETRON 4 MG/2 ML (SDV) Z0FRAN IVP PRN (23:04)
[2018-07-25] MEDS: fentaNYL INJECTION 100 MCG/2 ML AMP IVP PRN (23:05)
[2018-07-26 00:46] VITALS: BP 121/77
[2018-07-26] MEDS: ONDANSETRON 4 MG/2 ML (SDV) Z0FRAN IVP PRN ×5 (03:00→23:00)
[2018-07-26] MEDS: fentaNYL INJECTION 100 MCG/2 ML AMP IVP PRN ×5 (03:01→23:35)
[2018-07-26 04:16] VITALS: BP 115/64
[2018-07-26 05:19] LABS: BASOPHILS % (AUTO) 0 % (0-10); EOSINOPHILS # (AUTO) 0.2 10^3/uL (0.0-0.3); EOSINOPHILS % (AUTO) 2 % (0-10); HEMATOCRIT 35 % (35-52); HEMOGLOBIN 11.9 G/DL (11.5-16.0); LYMPHOCYTES # (AUTO) 1.8 X 10^3 (1.0-4.0); LYMPHOCYTES % (AUTO) 23 % (12-44); MEAN CORPUSCULAR HEMOGLOBIN 32 PG (25-34); MEAN CORPUSCULAR HGB CONC 34 G/DL (32-36); MEAN CORPUSCULAR VOLUME 94 FL (80-99); MEAN PLATELET VOLUME 10.6 FL (7.4-10.4); MONOCYTES # (AUTO) 0.6 X 10^3 (0.0-1.0); MONOCYTES % (AUTO) 8 % (0-12); NEUTROPHILS # (AUTO) 5.4 X 10^3 (1.8-7.8); NEUTROPHILS % (AUTO) 68 % (42-75); PLATELET COUNT 169 10^3/uL (130-400); RED CELL DISTRIBUTION WIDTH 12.6 % (10.0-14.5); WHITE BLOOD COUNT 7.9 10^3/uL (4.3-11.0)
[2018-07-26 05:41] LABS: ALANINE AMINOTRANSFERASE 27 U/L (0-55); ALBUMIN 3.7 GM/DL (3.2-4.5); ALKALINE PHOSPHATASE 41 U/L (40-136); BILIRUBIN,TOTAL 0.4 MG/DL (0.1-1.0); BUN/CREATININE RATIO 15; CALCIUM 8.4 MG/DL (8.5-10.1); CARBON DIOXIDE 22 MMOL/L (21-32); CHLORIDE 109 MMOL/L (98-107); CREATININE SERUM 0.85 MG/DL (0.60-1.30); GFR ESTIMATED > 60; GLUCOSE 89 MG/DL (70-105); POTASSIUM 3.4 MMOL/L (3.6-5.0); SODIUM 139 MMOL/L (135-145)
[2018-07-26] MEDS: D5 NS 1000 ML IV SOLUTION 1,000 ML IV SCH ×3 (07:21→23:34)
[2018-07-26] MEDS: PANTOPRAZOLE 40 MG (PROTONIX) VIAL IV SCH ×2 (07:22→20:27)
[2018-07-26 08:00] VITALS: BP 110/60
--- NOTE | 2018-07-26 08:48 | History & Physical-Surgical ---
History of Present Illness History of Present Illness Reason for visit/HPI CC: epigastric abdominal pain patient is a 37 year old female who was working out yesterday who states her workouts are approximately 2 hours in length. She states that half way through workout she began having sudden onset of pain that was pressure type pain in the epigastric region. She states that it moved slightly across the upper abdomen. Pain was continuous and then progressively gotten worse. She felt as if she needed to eat something it would make it better but she became more nauseated. Certain positions would make the pain better such as leaning forward or backwards, but sitting up would make worse. She went to the walk in clinic and was sent to the er for further evaluation. She had a ct scan abd/ pelvis demonstrating a left ovarian cyst, no other abnormality. Patient also notes that she had 3 liquid stools yesterday morning that made her feel slightly better, and had passed flatus which seemed to help as well. Patient notes feeling bloated significantly yesterday and the bloating has improved some today. Patient also consumes Monster energy drinks on daily basis. Currently NPO Date of Admission Jul 25, 2018 at 18:59 Date Seen by a Provider: Jul 26, 2018 Time Seen by a Provider: 08:10 I consulted on this patient on 07/26/18 08:10 Attending Physician Karolina Naranjo DO Admitting Physician Clarice Pineda MD Consult Allergies and Home Medications Allergies Coded Allergies: Penicillins (Verified Allergy, Unknown, 09/24/15) Home Medications Bupropion HCl 150 Mg Tab.er.24h, 150 MG PO DAILY, (Reported) Butalbit/Acetamin/Caff/Codeine 1 Each Capsule, 1 EACH PO Q6H PRN for HEADACHE Prescribed by: MAIKEL JONES on 09/24/15 9815 Cyclobenzaprine HCl 10 Mg Tablet, 10 MG PO TID, (Reported) Topiramate 200 Mg Tablet, 200 MG PO BID, (Reported) Patient Home Medication List Home Medication List Reviewed: Yes Past Uwfatzp-Ulzvmw-Giqimz Hx Patient Social History Alcohol Use: Occasionally Uses Recreational Drug Use: No Smoking Status: Current Everyday Smoker Type Used: Cigarettes Recent Foreign Travel: No Contact w/Someone Who Travel: No Recent Infectious Disease Expo: No Recent Hopitalizations: No Physical Abuse Screen: No Sexual Abuse: No Seasonal Allergies Seasonal Allergies: No Surgeries History of Surgeries: Yes (Bladder Enlargement, Angiogram) Surgeries: Section Respiratory History of Respiratory Disorde: No Cardiovascular History of Cardiac Disorders: Yes (Mitral Valve Prolapse, Tachycardia) Neurological History of Neurological Disord: Yes Neurological Disorders: Headaches /Migraines Reproductive System Hx : 2 Hx Para: 2 Hx Reproductive Disorders: No Female Reproductive Disorders: Ovarian Cyst Genitourinary History of Genitourinary Disor: No Gastrointestinal History of Gastrointestinal Di: Yes Gastrointestinal Disorders: Hiatal Hernia Musculoskeletal History of Musculoskeletal Dis: No Endocrine History of Endocrine Disorders: Yes (Hypoglycemia) HEENT History of HEENT Disorders: No Cancer History of Cancer: No Psychosocial History of Psychiatric Problem: Yes Behavioral Health Disorders: Depression Integumentary History of Skin or Integumenta: No Blood Transfusions History of Blood Disorders: No Adverse Reaction to a Blood Tr: No Family Medical History Significant Family History: No Pertinent Family Hx Review of Systems Constitutional: no symptoms reported EENTM: no symptoms reported Respiratory: no symptoms reported Cardiovascular: no symptoms reported Gastrointestinal: see HPI Genitourinary: no symptoms reported Musculoskeletal: no symptoms reported Skin: no symptoms reported Psychiatric/Neurological: No Symptoms Reported Physical Exam Vital Signs Vital Signs - First Documented 07/25/18 07/25/18 15:03 19:28 Temp 99.4 Pulse 107 Resp 20 B/P (MAP) 116/62 (80) Pulse Ox 100 O2 Delivery Room Air Capillary Refill : Less Than 3 Seconds Height, Weight, BMI Height: 5'4.00" Weight: 135lbs. 0.0oz. 61.797927ow; 23.2 BMI Method:Stated General Appearance: No Apparent Distress HEENT: PERRL/EOMI Neck: Normal Inspection, Non Tender Respiratory: Chest Non Tender, No Accessory Muscle Use, No Respiratory Distress Cardiovascular: Regular Rate, Rhythm Gastrointestinal: Soft, Tenderness (mild epigastric tenderness) Rectal: Deferred Back: Normal Inspection, No CVA Tenderness Extremity: Normal Inspection, Normal Range of Motion, Non Tender Neurologic/Psychiatric: Alert, Oriented x3, No Motor/Sensory Deficits, Normal Mood/Affect, hourly associate II-XII Norm as Tested Skin: Normal Color, Warm/Dry Lymphatic: No Adenopathy Data Review Labs Laboratory Tests 07/25/18 15:40: Urine Color YELLOW, Urine Clarity SL CLOUDY, Urine pH 6, Urine Specific [place] 1.010L, Urine Protein NEGATIVE, Urine Glucose (UA) NEGATIVE, Urine Ketones 1+H, Urine Nitrite NEGATIVE, Urine Bilirubin NEGATIVE, Urine Urobilinogen NORMAL, Urine Leukocyte Esterase NEGATIVE, Urine RBC (Auto) NEGATIVE, Urine RBC NONE, Urine WBC RARE, Urine Squamous Epithelial Cells 0-2, Urine Crystals NONE, Urine Bacteria TRACE, Urine Casts NONE, Urine Mucus NEGATIVE, Urine Culture Indicated NO 07/25/18 15:47: White Blood Count 10.2, Red Blood Count 4.25L, Hemoglobin 13.6, Hematocrit 39, Mean Corpuscular Volume 93, Mean Corpuscular Hemoglobin 32, Mean Corpuscular Hemoglobin Concent 35, Red Cell Distribution Width 12.4, Platelet Count 226, Mean Platelet Volume 10.5H, Neutrophils (%) (Auto) 65, Lymphocytes (%) (Auto) 26 , Monocytes (%) (Auto) 9, Eosinophils (%) (Auto) 0, Basophils (%) (Auto) 0, Neutrophils # (Auto) 6.6, Lymphocytes # (Auto) 2.7, Monocytes # (Auto) 0.9, Eosinophils # (Auto) 0.0, Basophils # (Auto) 0.0, Sodium Level 140, Potassium Level 3.9, Chloride Level 103, Carbon Dioxide Level 25, Anion Gap 12, Blood Urea Nitrogen 17, Creatinine 0.85, Estimat Glomerular Filtration Rate > 60, BUN/ Creatinine Ratio 20, Glucose Level 81, Calcium Level 10.1, Corrected Calcium , Total Bilirubin 0.4, Aspartate Amino Transf (AST/SGOT) 46H, Alanine Aminotransferase (ALT/SGPT) 34, Alkaline Phosphatase 55, Total Protein 7.8, Albumin 4.8H, Amylase Level 57, Lipase 14 07/25/18 22:38: Glucometer 69L 07/26/18 03:02: Glucometer 108 07/26/18 05:00: White Blood Count 7.9, Red Blood Count 3.69L, Hemoglobin 11.9, Hematocrit 35, Mean Corpuscular Volume 94, Mean Corpuscular Hemoglobin 32, Mean Corpuscular Hemoglobin Concent 34, Red Cell Distribution Width 12.6, Platelet Count 169, Mean Platelet Volume 10.6H, Neutrophils (%) (Auto) 68, Lymphocytes (%) (Auto) 23 , Monocytes (%) (Auto) 8, Eosinophils (%) (Auto) 2, Basophils (%) (Auto) 0, Neutrophils # (Auto) 5.4, Lymphocytes # (Auto) 1.8, Monocytes # (Auto) 0.6, Eosinophils # (Auto) 0.2, Basophils # (Auto) 0.0, Sodium Level 139, Potassium Level 3.4L, Chloride Level 109H, Carbon Dioxide Level 22, Anion Gap 8, Blood Urea Nitrogen 13, Creatinine 0.85, Estimat Glomerular Filtration Rate > 60, BUN/ Creatinine Ratio 15, Glucose Level 89, Calcium Level 8.4L, Corrected Calcium 8.6 , Total Bilirubin 0.4, Aspartate Amino Transf (AST/SGOT) 35H, Alanine Aminotransferase (ALT/SGPT) 27, Alkaline Phosphatase 41, Total Protein 6.0L, Albumin 3.7 Assessment/Plan Assessment/Plan Admission Diagonsis epigastric abdominal pain nausea left ovarian cyst obtain gb u/s this morning if negative will get HIDA scan. If u/s and HIDA negative this is likely musculoskeletal or gastritis, which we will treat with protonix/carafate and rest. Patient advised to stop drinking Monster and no lifting or strenuous physical activity if no improvement over about a week would likely do EGD, she does have history of Hiatal hernia found on endoscopy. Admission Status: Observation Assessment/Plan epigastric abdominal pain nausea left ovarian cyst obtain gb u/s this morning if negative will get HIDA scan. If u/s and HIDA negative this is likely musculoskeletal or gastritis, which we will treat with protonix/carafate and rest. Patient advised to stop drinking Monster and no lifting or strenuous physical activity if no improvement over about a week would likely do EGD, she does have history of Hiatal hernia found on endoscopy. will need to follow up with her PCP or [employer] for cyst Clinical Quality Measures DVT/VTE Risk/Contraindication: Risk Factor Score Per Nursin RFS Level Per Nursing on Admit: 1=Low/No VTE PPX KAROLINA NARANJO DO Jul 26, 2018 08:48
--- NOTE | 2018-07-26 08:54 | Diagnostic Imaging Report ---
PROCEDURE: US Gallbladder. TECHNIQUE: Multiple real-time grayscale images were obtained over the right upper quadrant in various projections. INDICATION: Epigastric and abdominal pain. FINDINGS: Liver is normal in size at 15 cm. The portal vein is patent and shows normal direction of flow. No liver mass is seen. Gallbladder is without stones or sludge. No wall thickening or biliary ductal dilatation is seen. The pancreas and right kidney are unremarkable. There is no ascites. IMPRESSION: Unremarkable gallbladder ultrasound. Dictated by: Dictated on workstation # [id number]
[2018-07-26] MEDS ORDERED: PREN-8 PO (09:04)
--- NOTE | 2018-07-26 09:04 | NUR ---
PATIENT STATES SHE IS TRYING TO GET SO SHE HAS STOPPED ALL HER MEDICATIONS EXCEPT A VITAMIN.
[2018-07-26 12:00] VITALS: BP 106/59
--- NOTE | 2018-07-26 15:41 | Diagnostic Imaging Report ---
INDICATION: Epigastric pain. FINDINGS: The patient was administered 5.41 mCi of Tc 99m Choletec and sequential imaging was performed over the right upper abdomen. There is progressive, homogeneous accumulation of radiotracer within the liver parenchyma. There is filling of the bile ducts and subsequent filling of the gallbladder. There is progressive clearance of activity from the liver parenchyma and accumulation of radiotracer within loops of small bowel. The patient was then administered a fatty meal, utilizing 8 ounces of Ensure. The gallbladder ejection fraction was calculated to be approximately 19%. (Normal values post fatty meal stimulation are 33% or greater.) IMPRESSION: 1. Hepatobiliary scan demonstrates a patent biliary tree. 2. Abnormal gallbladder ejection fraction of approximately 19%. Dictated by: Dictated on workstation # [id number]
[2018-07-26 16:48] VITALS: BP 100/55
[2018-07-26] MEDS ORDERED: NICOTINE PATCH REMOVAL TP SCH (19:00)
[2018-07-26] MEDS ORDERED: NICOTINE 21 MG (NICODERM) PATCH TD SCH (19:00)
[2018-07-26 20:56] VITALS: BP 102/57
--- NOTE | 2018-07-26 22:17 | NUR ---
Pt is c/o headache at this time. Dr. Naranjo notified. Orders received for Tylenol 650 mg PO one-time dose.
[2018-07-26] MEDS ORDERED: ACETAMINOPHEN 325 MG TABLET PO ONE (22:30)
[2018-07-27] VITALS: BP 112/67
[2018-07-27] MEDS: fentaNYL INJECTION 100 MCG/2 ML AMP IVP PRN ×3 (01:31→14:15)
--- NOTE | 2018-07-27 01:35 | NUR ---
Pt c/o nausea unrelieved by Zofran. Dr. Wild notified. Order received for Phenergan 12.5 mg IV Q3 hrs PRN.
[2018-07-27] MEDS: PROMETHAZINE INJ 25 MG/ML (PHENERGAN) AMP IVP PRN ×2 (01:46→13:11)
[2018-07-27 04:00] VITALS: BP 109/60
[2018-07-27] MEDS: D5 NS 1000 ML IV SOLUTION 1,000 ML IV SCH ×2 (04:16→16:41)
[2018-07-27] MEDS: ONDANSETRON 4 MG/2 ML (SDV) Z0FRAN IVP PRN (07:58)
[2018-07-27] MEDS: PANTOPRAZOLE 40 MG (PROTONIX) VIAL IV SCH (07:58)
[2018-07-27 08:00] VITALS: BP 104/55
--- NOTE | 2018-07-27 08:35 | Progress Note ---
Subjective Date Seen by a Provider: Jul 27, 2018 Time Seen by a Provider: 08:28 Subjective/Events-last exam Patient still with epigastric abdominal pain. Had some nausea overnight. No other complaints at this time. HIDA ef 19%. Denies fever sweats chills shortness of breath or chest pain. Objective Exam Vital Signs Date Time Temp Pulse Resp B/P (MAP) Pulse Ox O2 Delivery O2 Flow Rate FiO2 07/27/18 04:00 98.3 75 16 109/60 (76) 98 Room Air 07/27/18 00:00 98.5 81 16 112/67 (82) 98 Room Air 07/26/18 20:56 98.8 78 17 102/57 (72) 100 Room Air 07/26/18 20:00 Room Air 07/26/18 16:48 98.6 82 16 100/55 (70) 100 Room Air 07/26/18 12:00 96.2 74 18 106/59 (75) 99 I & O 07/27/18 07:00 Intake Total 2320 ml Output Total 1200 ml Balance 1120 ml Capillary Refill : Less Than 3 Seconds General Appearance: No Apparent Distress HEENT: PERRL/EOMI Neck: Normal Inspection, Non Tender Respiratory: Chest Non Tender, No Accessory Muscle Use, No Respiratory Distress Cardiovascular: Regular Rate, Rhythm Gastrointestinal: soft, distended; No guarding, No rebound; tenderness ( epigastric) Extremity: Normal Inspection, Normal Range of Motion, Non Tender Neurologic/Psychiatric: Alert, Oriented x3, No Motor/Sensory Deficits, Normal Mood/Affect, rehab consultant II-XII Norm as Tested Skin: Normal Color, Warm/Dry Lymphatic: No Adenopathy Results Lab Laboratory Tests 07/27/18 01:46: Glucometer 94 Assessment/Plan Assessment/Plan Assessment/Plan epigastric abdominal pain biliary dyskinesia nausea left ovarian cyst patient understands risk and benefits of laparoscopic cholecystectomy intraoperative cholangiogram all other indicated procedures. she wishes to proceed. to OR today. Clinical Quality Measures DVT/VTE Risk/Contraindication: Risk Factor Score Per Nursin RFS Level Per Nursing on Admit: 1=Low/No VTE PPX KAROLINA GONZALEZ DO Jul 27, 2018 08:35
[2018-07-27] MEDS ORDERED: CLINDAMYCIN 600 MG/50 ML IVPB 50 ML IV ONE (10:00)
[2018-07-27] MEDS ORDERED: LIDOCAINE 1% INJ 20 ML 20 ML VIAL ONE (10:25)
[2018-07-27] MEDS ORDERED: BUP/EPI 0.5% 1:200,000 (SENSORCAINE) 30 ML VIAL ONE (10:25)
[2018-07-27] MEDS ORDERED: LIDOCAINE PF 2% 5 ML (XYLOCAINE) VIAL ONE (10:43)
[2018-07-27] MEDS ORDERED: ONDANSETRON 4 MG/2 ML (SDV) Z0FRAN ONE ×2 (10:43→13:10)
[2018-07-27] MEDS ORDERED: proPOfol 200 MG/20 ML (DIPRIVAN) VIAL IV ONE ×2 (10:43→12:46)
[2018-07-27] MEDS ORDERED: SEVOFLURANE (ULTANE) 15 ML INHAL SOLN ONE (10:43)
[2018-07-27] MEDS ORDERED: MIDAZOLAM 2 MG/2 ML (VERSED) VIAL ONE (10:43)
[2018-07-27] MEDS ORDERED: fentaNYL INJECTION 100 MCG/2 ML AMP ONE ×2 (10:43→12:14)
[2018-07-27] MEDS ORDERED: DEXAMETHASONE 10 MG/ML (DECADRON) 1 ML VIAL ONE ×2 (10:43→13:10)
[2018-07-27] MEDS ORDERED: PROPOFOL INJECTION 50 ML IV ONE (10:51)
[2018-07-27] MEDS: LACTATED RINGERS 1,000 ML IV PRN ×2 (11:00→13:50)
[2018-07-27 12:00] VITALS: BP 138/70
[2018-07-27] MEDS ORDERED: NEOSTIGMINE 1 MG/ML 5 ML SYRINGE ONE (12:40)
[2018-07-27] MEDS ORDERED: ROCURONIUM 10 MG/ML 5 ML SYRINGE IV ONE (12:40)
[2018-07-27] MEDS ORDERED: GLYCOPYRROLATE 0.2 MG/ML (ROBINUL) 2 ML VIAL ONE (12:40)
[2018-07-27] MEDS ORDERED: PROMETHAZINE INJ 25 MG/ML (PHENERGAN) AMP IVP ONE (13:00)
[2018-07-27] MEDS ORDERED: morphine INJ 10 MG/ML 1ML (SYR OR VIAL) IVP ONE (13:00)
[2018-07-27] MEDS ORDERED: ONDANSETRON 4 MG/2 ML (SDV) Z0FRAN IVP PRN (13:00)
[2018-07-27] MEDS ORDERED: MEPERIDINE (DEMEROL) INJ 50 MG/ML IVP ONE (13:00)
[2018-07-27] MEDS ORDERED: HYDROmorphone 2 MG/ML VIAL (DILAUDID) IV ONE (13:00)
[2018-07-27] MEDS ORDERED: morphine INJ 10 MG/ML 1ML (SYR OR VIAL) ONE (13:19)
--- NOTE | 2018-07-27 13:19 | Diagnostic Imaging Report ---
Indication: Fluoroscopy for intraoperative cholangiogram. Fluoroscopy was provided for Dr. Naranjo during intraoperative cholangiogram. 9 seconds of fluoroscopy was utilized. Images demonstrate contrast being injected via the cystic duct remnant. Intrahepatic and intrahepatic bile ducts as well as pancreatic duct of normal caliber. No filling defects are seen. Contrast passes into the duodenum. Impression: Fluoroscopy for intraoperative cholangiogram. Dictated by: Dictated on workstation # [id number]
[2018-07-27] MEDS ORDERED: FLU QUADRIvalent (5+ YOA) 2018-2019 (AFLURIA) 0.5 ML IM ONE (13:45)
--- NOTE | 2018-07-27 14:57 | Progress Note-Post Operative ---
Post-Operative Progess Note Surgeon (s)/Luster Repairer (s) Surgeon KAROLINA GONZALEZ DO Luster Repairer: Dr. Espana Pre-Operative Diagnosis biliary dyskinesia Post-Operative Diagnosis biliary dyskinesia, acute cholecystitis Procedure & Operative Findings Date of Procedure 07/27/18 Procedure Performed/Findings lap sandee c ioc Anesthesia Type gen Estimated Blood Loss Estimated blood loss (mL): min Specimens/Packing Specimens Removed gallbladder KAROLINA GONZALEZ DO Jul 27, 2018 14:57
[2018-07-27] MEDS ORDERED: DOCU-143 PO (14:58)
[2018-07-27] MEDS ORDERED: ACHD5005 PO (14:58)
[2018-07-27] MEDS ORDERED: HYDROcodone/APAP 5 MG/325 MG (LORTAB) TAB PO PRN (15:00)
--- NOTE | 2018-07-27 15:00 | Discharge Inst-Simple/Standard ---
Discharge Inst-Standard Discharge Medications New, Converted or Re-Newed RX: RX on Chart Patient Instructions/Follow Up Plan of Care/Instructions/FU: 2 weeks Marcella Activity as Tolerated: No Discharge Diet: Regular Diet Other Inst to Patient Follow up Appt: Make appointment for 2 weeks. Instructions: No lifting greater than 10 pounds. No strenuous activity. May shower in 24 hours, no tub bath or soaking. Use incentive spirometer at home as directed. No Smoking Skin/Wound Care: You have glue over incisions it will fall off on its own. Symptoms to Report: Appetite Changes, Extremity Discoloration, Numbness/Tingling, Swelling Increased , Bleeding Excessive, Eyesight Changes, Pain Increased, Urine Color Change, Constipation(Persistent), Fever over 101 degree F, Pain/Pressure in chest, Urinating Difficulty, Cough Up/Vomit Blood, Heart Beat Irreg/Pounding, Pain/ Pressure in jaw, Vaginal Bleeding Increase, Cramps in feet or legs, Lightheadedness, Pain/Pressure in shoulder, Diarrhea(Persistent), Memory Changes Suddenly, Questions/Concerns, Weight gain consecutive days, Dizziness/ Fainting, Nausea/Vomiting, Shortness of Breath, Weight gain over 2 pounds. If eyes or skin turn yellow notify physician. If questions or concerns contact your physician Or seek help at emergency department. KAROLINA GONZALEZ DO Jul 27, 2018 15:00
[2018-07-27 16:08] VITALS: BP 108/53
--- NOTE | 2018-07-28 02:11 | OPERATIVE REPORT ---
DATE OF SERVICE: 07/27/2018 PREOPERATIVE DIAGNOSIS: Biliary dyskinesia. POSTOPERATIVE DIAGNOSES: Biliary dyskinesia, acute cholecystitis. PROCEDURE: Laparoscopic cholecystectomy with intraoperative cholangiogram. SURGEON: Karolina Naranjo DO DAY SPA MANAGER: Dr. Espana, assisted in retraction, dissection and closure. ANESTHESIA: General. ESTIMATED BLOOD LOSS: Minimal. COMPLICATIONS: None. INDICATIONS: The patient is a 37-year-old female who presented with epigastric abdominal pain. Gallbladder ultrasound was normal. HIDA scan showed ejection fraction of 19%. The patient understands risks and benefits of procedure and wished to proceed with procedure. Consent was signed in the chart. DESCRIPTION OF PROCEDURE: The patient was taken to the operating suite. She was prepped and draped in sterile fashion. Surgical pause was performed. Local anesthetic was infiltrated just below the umbilicus. An 11 blade scalpel was used to make a skin incision and cautery was used to dissect down to the fascia, which was then scored, grasped with Arely's, elevated. The abdomen was then entered. A balloon trocar was inserted and pneumoperitoneum was achieved. Under direct visualization of the laparoscope, a 5 mm trocar was placed in the subxiphoid region and two 5 mm trocars were placed in the right upper quadrant. Gallbladder was grasped, elevated. The cystic duct and cystic artery were then dissected out. Clips were placed on the proximal and distal portion of the cystic artery. A clip was placed on the distal portion of the cystic duct. The duct was then partially transected. Arrow catheter was inserted in the duct and cholangiogram was performed. There were no filling defects. Contrast made its way into the duodenum without difficulty. The catheter was then removed. Clips were placed on the proximal portion of the cystic duct, and the duct and the artery were then completely transected. Hook cautery was used to dissect the gallbladder from the gallbladder fossa achieving hemostasis. It was placed in the Endobag and removed through the 12 mm trocar site. The abdomen was then irrigated with copious amounts of irrigation and suction. Hemostasis had been achieved. The abdomen was then desufflated, the trocars were removed. The fascia was then closed at the umbilicus with a 0 Vicryl in a [id number] fashion. The skin was then closed using 4-0 Monocryl in the subcuticular fashion. The abdomen was then washed and dried and Skin Affix was placed over incisions. The patient tolerated procedure well without any complications. She was taken to recovery room in stable condition. Job ID: [id number] DocumentID: [id number] Dictated Date: 07/27/2018 20:44:58 Press Feeder Date: 07/28/2018 02:10:43 Dictated By: KAROLINA NARANJO DO
--- NOTE | 2018-07-28 09:28 | Anesthesia-General Post-Op ---
General Post Op Complications Complications None Follow Up Care/Instructions Patient Instructions None needed. Anesthesia/Patient Condition D/C home per [facility] Criteria: Yes JEFF QUACH CRNA Jul 28, 2018 09:28
--- OUTSIDE RECORDS SUMMARY | 2018-08-04 12:18 | XMS REPORT | Continuity of Care Document ---
Author Author [facility] Address Unknown Phone Unavailable Allergies Active Description Code Type Severity Reaction Onset Reported/Identified Relationship to Patient Clinical Status Yes PENICILLINS MODERATE OTHER Yes Penicillins [id number] Drug Allergy Unknown N/A 09/24/2015 Medications Medication [...] MIGRAINE, UNSP, NOT INTRACTABLE, WITHOUT STATUS MIGRAINOSUS 07/27/2018 GONZALEZ KAROLINA LUCIA Ot K81.0 ACUTE CHOLECYSTITIS 08/04/2018 KAROLINA GONZALEZ DO Ot K81.0 ACUTE CHOLECYSTITIS Procedures There is no data. Results Test [...] 0-40 ALT (SGPT) 14 IU/L 0-32 Thyroid [place] Profile - 04/29/16 10:17 TSH 0.711 uIU/mL 0.450-4.500 Sedimentation Rate-Westergren - 04/29/16 10:17 Sedimentation Rate-Westergren 4 mm/hr 0-32 C-Reactive Protein, Quant - 04/29/16 10:17 C-Reactive Protein, Quant 0.5 mg/L 0.0-4.9 SUREPATH PAP AND HPV mRNA E6/E7 - 09/22/17 16:10 CLINICAL INFORMATION: NRG LMP: NRG PREV. PAP: NRG PREV. BX: NRG SOURCE: Cervix NR STATEMENT OF ADEQUACY: NR INTERPRETATION/RESULT: NR DEDICATED [employer]MOD[employer]: NRG HPV mRNA E6/E7, SUREPATH VIAL Not Detected NOT DETECTED COMMENT NRG TEST, SERUM (QUAL) - 10/12/17 16:00 HCG, TOTAL, QL NEGATIVE See Note: TSH - 01/24/18 10:00 TSH 3.11 mIU/L NRG LH - 04/20/18 11:41 LH 15.5 mIU/mL NRG Complete urinalysis with reflex to culture - 07/25/18 15:40 Urine color determination YELLOW NRG Urine clarity determination SL CLOUDY NRG Urine pH measurement by test strip 6 5-9 Specific gravity of urine by test strip 1.010 1.016- 1.022 Urine protein assay by test strip, semi-quantitative NEGATIVE NEGATIVE Urine glucose detection by automated test strip NEGATIVE NEGATIVE Erythrocytes detection in urine sediment by light microscopy NEGATIVE NEGATIVE Urine ketones detection by automated test strip 1+ NEGATIVE Urine nitrite detection by test strip NEGATIVE NEGATIVE Urine total bilirubin detection by test strip NEGATIVE NEGATIVE Urine urobilinogen measurement by automated test strip (mass/volume) NORMAL NORMAL Urine leukocyte esterase detection by dipstick NEGATIVE NEGATIVE Automated urine sediment erythrocyte count by microscopy (number/high power field) NONE NRG Automated urine sediment leukocyte count by microscopy (number/high power field ) RARE NRG Bacteria detection in urine sediment by light microscopy TRACE NRG Squamous epithelial cells detection in urine sediment by light microscopy 0-2 NRG Crystals detection in urine sediment by light microscopy NONE NRG Casts detection in urine sediment by light microscopy NONE NRG Mucus detection in urine sediment by light microscopy NEGATIVE NRG Complete urinalysis with reflex to culture NO NRG Complete blood count (CBC) with automated white blood cell (WBC) differential - 07/25/18 15:47 Blood leukocytes automated count (number/volume) 10.2 10*3/uL 4.3-11.0 Blood erythrocytes automated count (number/volume) 4.25 10*6/uL 4.35-5.85 Venous blood hemoglobin measurement (mass/volume) 13.6 g/dL 11.5-16.0 Blood hematocrit (volume fraction) 39 % 35-52 Automated erythrocyte mean corpuscular volume 93 [foz_us] 80-99 Automated erythrocyte mean corpuscular hemoglobin (mass per erythrocyte) 32 pg 25-34 Automated erythrocyte mean corpuscular hemoglobin concentration measurement ( mass/volume) 35 g/dL 32-36 Automated erythrocyte distribution width ratio 12.4 % 10.0-14.5 Automated blood platelet count (count/volume) 226 10*3/uL 130-400 Automated blood platelet mean volume measurement 10.5 [foz_us] 7.4-10.4 Automated blood neutrophils/100 leukocytes 65 % 42-75 Automated blood lymphocytes/100 leukocytes 26 % 12-44 Blood monocytes/100 leukocytes 9 % 0-12 Automated blood eosinophils/100 leukocytes 0 % 0-10 Automated blood basophils/100 leukocytes 0 % 0-10 Blood neutrophils automated count (number/volume) 6.6 10*3 1.8-7.8 Blood lymphocytes automated count (number/volume) 2.7 10*3 1.0-4.0 Blood monocytes automated count (number/volume) 0.9 10*3 0.0-1.0 Automated eosinophil count 0.0 10*3/uL 0.0-0.3 Automated blood basophil count (count/volume) 0.0 10*3/uL 0.0-0.1 Comprehensive metabolic panel - 07/25/18 15:47 Serum or plasma sodium measurement (moles/volume) 140 mmol/L 135-145 Serum or plasma potassium measurement (moles/volume) 3.9 mmol/L 3.6-5.0 Serum or plasma chloride measurement (moles/volume) 103 mmol/L 98-107 Carbon dioxide 25 mmol/L 21-32 Serum or plasma anion gap determination (moles/volume) 12 mmol/L 5-14 Serum or plasma urea nitrogen measurement (mass/volume) 17 mg/dL 7-18 Serum or plasma creatinine measurement (mass/volume) 0.85 mg/dL 0.60-1.30 Serum or plasma urea nitrogen/creatinine mass ratio 20 NRG Serum or plasma creatinine measurement with calculation of estimated glomerular filtration rate > NRG Serum or plasma glucose measurement (mass/volume) 81 mg/dL 70-105 Serum or plasma calcium measurement (mass/volume) 10.1 mg/dL 8.5-10.1 Serum or plasma total bilirubin measurement (mass/volume) 0.4 mg/dL 0.1-1.0 Serum or plasma alkaline phosphatase measurement (enzymatic activity/volume) 55 U/L 40-136 Serum or plasma aspartate aminotransferase measurement (enzymatic activity/ volume) 46 U/L 5-34 Serum or plasma alanine aminotransferase measurement (enzymatic activity/volume ) 34 U/L 0-55 Serum or plasma protein measurement (mass/volume) 7.8 g/dL 6.4-8.2 Serum or plasma albumin measurement (mass/volume) 4.8 g/dL 3.2-4.5 Serum or plasma amylase measurement (enzymatic activity/volume) - 07/25/18 15: 47 Serum or plasma amylase measurement (enzymatic activity/volume) 57 U /L 25-125 Lipase - 07/25/18 15:47 Lipase 14 U/L 8-78 Capillary blood glucose measurement by glucometer (mass/volume) - 07/25/18 22: 38 Capillary blood glucose measurement by glucometer (mass/volume) 69 mg/dL 70-110 Capillary blood glucose measurement by glucometer (mass/volume) - 07/26/18 03: 02 Capillary blood glucose measurement by glucometer (mass/volume) 108 mg/dL 70-110 Complete blood count (CBC) with automated white blood cell (WBC) differential - 07/26/18 05:00 Blood leukocytes automated count (number/volume) 7.9 10*3/uL 4.3-11.0 Blood erythrocytes automated count (number/volume) 3.69 10*6/uL 4.35-5.85 Venous blood hemoglobin measurement (mass/volume) 11.9 g/dL 11.5-16.0 Blood hematocrit (volume fraction) 35 % 35-52 Automated erythrocyte mean corpuscular volume 94 [foz_us] 80-99 Automated erythrocyte mean corpuscular hemoglobin (mass per erythrocyte) 32 pg 25-34 Automated erythrocyte mean corpuscular hemoglobin concentration measurement ( mass/volume) 34 g/dL 32-36 Automated erythrocyte distribution width ratio 12.6 % 10.0-14.5 Automated blood platelet count (count/volume) 169 10*3/uL 130-400 Automated blood platelet mean volume measurement 10.6 [foz_us] 7.4-10.4 Automated blood neutrophils/100 leukocytes 68 % 42-75 Automated blood lymphocytes/100 leukocytes 23 % 12-44 Blood monocytes/100 leukocytes 8 % 0-12 Automated blood eosinophils/100 leukocytes 2 % 0-10 Automated blood basophils/100 leukocytes 0 % 0-10 Blood neutrophils automated count (number/volume) 5.4 10*3 1.8-7.8 Blood lymphocytes automated count (number/volume) 1.8 10*3 1.0-4.0 Blood monocytes automated count (number/volume) 0.6 10*3 0.0-1.0 Automated eosinophil count 0.2 10*3/uL 0.0-0.3 Automated blood basophil count (count/volume) 0.0 10*3/uL 0.0-0.1 Comprehensive metabolic panel - 07/26/18 05:00 Serum or plasma sodium measurement (moles/volume) 139 mmol/L 135-145 Serum or plasma potassium measurement (moles/volume) 3.4 mmol/L 3.6-5.0 Serum or plasma chloride measurement (moles/volume) 109 mmol/L 98-107 Carbon dioxide 22 mmol/L 21-32 Serum or plasma anion gap determination (moles/volume) 8 mmol/L 5-14 Serum or plasma urea nitrogen measurement (mass/volume) 13 mg/dL 7-18 Serum or plasma creatinine measurement (mass/volume) 0.85 mg/dL 0.60-1.30 Serum or plasma urea nitrogen/creatinine mass ratio 15 NRG Serum or plasma creatinine measurement with calculation of estimated glomerular filtration rate > NRG Serum or plasma glucose measurement (mass/volume) 89 mg/dL 70-105 Serum or plasma calcium measurement (mass/volume) 8.4 mg/dL 8.5-10.1 Serum or plasma total bilirubin measurement (mass/volume) 0.4 mg/dL 0.1-1.0 Serum or plasma alkaline phosphatase measurement (enzymatic activity/volume) 41 U/L 40-136 Serum or plasma aspartate aminotransferase measurement (enzymatic activity/ volume) 35 U/L 5-34 Serum or plasma alanine aminotransferase measurement (enzymatic activity/volume ) 27 U/L 0-55 Serum or plasma protein measurement (mass/volume) 6.0 g/dL 6.4-8.2 Serum or plasma albumin measurement (mass/volume) 3.7 g/dL 3.2-4.5 CALCIUM CORRECTED 8.6 mg/dL 8.5-10.1 Methicillin resistant Staphylococcus aureus (MRSA) screening culture - 18:30 Methicillin resistant Staphylococcus aureus (MRSA) screening culture NEG NRG Capillary blood glucose measurement by glucometer (mass/volume) - 07/27/18 01: 46 Capillary blood glucose measurement by glucometer (mass/volume) 94 mg/dL 70-110 Encounters ACCT No. Visit Date/Time Discharge Status Pt. Type Provider Facility Loc./Unit Complaint [id number] 05/18/2013 16:26:00 05/18/2013 23:59:59 CLS Outpatient TOBI GALINDO DO [id number] 07/25/2018 13:05:00 07/25/2018 23:59:59 CLS Out[facility] [id number] 04/20/2018 10:40:00 Document Registration [id number] 01/24/2018 09:00:00 Document Registration [id number] 10/12/2017 15:40:00 Document Registration [id number] 09/22/2017 14:20:00 Document Registration [id number] 01/25/2016 13:05:00 Document Registration [id number] 12/06/2017 12:08:00 12/06/2017 13:25:00 DIS Outpatient Renan Jones [id number] 12/06/2017 12:32:21 Document Registration [id number] 04/30/2016 10:05:00 Document Registration [id number] 07/25/2018 19:48:00 07/27/2018 17:35:00 DIS Outpatient KAROLINA GONZALEZ DO [facility] EPIGASTRIC ABD PAIN [id number] 09/24/2015 20:21:00 09/24/2015 22:45:00 DIS Emergency MAIKEL RALPH [facility] ER MIGRAINE
== END 2018-07-27 17:35 | disposition home or self-care (01) ==
LOC: EDUNIT# 14:36 → ER 14:37 → 4TH 18:59 → UNDOADMOB 18:59 → SDC 19:48 → 4TH 19:48 → SDC 07-27 17:35 → UNDODISOB 07-27 17:35
PROVIDERS: ATTEND Surgery
DX: K81.2 Acute cholecystitis with chronic cholecystitis (principal); K82.8 Other specified diseases of gallbladder; N83.202 Unspecified ovarian cyst, left side; K44.9 Diaphragmatic hernia without obstruction or gangrene; K21.9 Gastro-esophageal reflux disease without esophagitis; F32.9 Major depressive disorder, single episode, unspecified; I34.1 Nonrheumatic mitral (valve) prolapse; F17.210 Nicotine dependence, cigarettes, uncomplicated; Z88.0 Allergy status to penicillin; Z79.899 Other long term (current) drug therapy
CPT/HCPCS: 36415; 74177; 76705; 78227; 80053; 81000; 82150; 82962; 83690; 84703; 85025; 87081; 93005; 96361; 96374; 96375; 96376; G0378

== ENCOUNTER 2019-07-19 14:08 | Outpatient (RCR) | payer SELFPAY ==
[~2019-07-19 14:08] MED LIST changes: +ACHD5005 PO; +DOCU-143 PO; +PREN-8 PO
[2019-07-19 14:39] LABS: BASOPHILS % (AUTO) 0 % (0-10); EOSINOPHILS # (AUTO) 0.3 10^3/uL (0.0-0.3); EOSINOPHILS % (AUTO) 3 % (0-10); HEMATOCRIT 41 % (35-52); HEMOGLOBIN 14.1 G/DL (11.5-16.0); LYMPHOCYTES # (AUTO) 2.8 X 10^3 (1.0-4.0); LYMPHOCYTES % (AUTO) 28 % (12-44); MEAN CORPUSCULAR HEMOGLOBIN 31 PG (25-34); MEAN CORPUSCULAR HGB CONC 35 G/DL (32-36); MEAN CORPUSCULAR VOLUME 91 FL (80-99); MEAN PLATELET VOLUME 10.1 FL (7.4-10.4); MONOCYTES # (AUTO) 0.8 X 10^3 (0.0-1.0); MONOCYTES % (AUTO) 8 % (0-12); NEUTROPHILS # (AUTO) 6.2 X 10^3 (1.8-7.8); NEUTROPHILS % (AUTO) 62 % (42-75); PLATELET COUNT 255 10^3/uL (130-400); RED CELL DISTRIBUTION WIDTH 12.7 % (10.0-14.5)
[2019-07-19 15:02] LABS: ALBUMIN 4.5 GM/DL (3.2-4.5); BILIRUBIN,TOTAL 0.4 MG/DL (0.1-1.0); CALCIUM 9.1 MG/DL (8.5-10.1); CREATININE SERUM 1.14 MG/DL (0.60-1.30); POTASSIUM 4.2 MMOL/L (3.6-5.0); TOTAL PROTEIN 7.4 GM/DL (6.4-8.2)
== END 2019-10-17 | disposition home or self-care (01) ==
LOC: EDSTATUS 14:08 → LAB 14:08
PROVIDERS: ATTEND Nurse Practitioner Primary Care
DX: R19.7 Diarrhea, unspecified (principal)
CPT/HCPCS: 36415; 80053; 82306; 82607; 82728; 83540; 85025; 86141; 87015; 87045; 87046; 87324; 87328; 87329; 87449; 87899